=== PATIENT | female | born 1945 | race Caucasian/White ===

== ENCOUNTER 2017-11-08 20:00 | Inpatient (IN) ==
[2017-11-08] MEDS ORDERED: Naloxone Inj 2 MG/2 ML Vial ONE (20:15)
[2017-11-08] MEDS ORDERED: Etomidate Inj 40 MG/20 ML Vial IV.PUSH ONE ×2 (20:15→20:33)
[2017-11-08] MEDS ORDERED: Succinylcholine Inj 100 MG/5 ML Syringe IV.PUSH ONE (20:33)
[2017-11-08] MEDS ORDERED: fentaNYL 10 mcg/mL Premix Drip 2,500 MCG/250 ML BAG IV.SIG PRN (20:40)
--- NOTE | 2017-11-08 20:48 | ED ---
HPI General Chief Complaint: Overdose Stated Complaint: Evac/Poss Od/Psych eval Time Seen by Provider: 11/08/17 20:08 Source: EMS and police Mode of arrival: EMS Limitations: altered mental status History of Present Illness HPI narrative: Patient is a 72-year-old female, past medical history significant for bipolar depression, hypothyroidism who presents with complaint of altered mental status. Per report she was found down at her house in the kitchen with a bottle of Xanax. The bottle was filled in August of this year with 90 0.5 mg xanax tablets. There are 20 tablets in the bottle on arrival here. No other pills were found around her. She arrived here under [place] act. EMS on arrival gave her 2 mg Narcan IM, 2 mg Narcan IV without improvement. Blood sugar was in the 100s. She has not had any change in status. Patient is unable to provide history. MD complaint: altered mental status Onset (ago): unknown Severity: severe Consistency of symptoms: constant Context: other (found with Xanax bottle) Treatments prior to arrival: other (2 mg narcan IM and 2 mg narcan IV) Related Data Home Medications Medication Instructions Recorded Confirmed Unable to Obtain Home Meds 11/08/17 11/08/17 Allergies Allergy/AdvReac Type Severity Reaction Status Date / Time lamotrigine Allergy Unknown Rash Unverified 12/04/16 14:42 Review of Systems ROS Unobtainable due to endotracheal tube and unobtainable due to mental status [facility] History Medical History History of left heart catheterization (LHC) (Acute) Abdominal lipoma (Acute) SVT (supraventricular tachycardia) (Acute) Hypothyroid (Acute) HLD (hyperlipidemia) (Acute) CAD (coronary artery disease) (Acute) Bipolar 1 disorder, depressed (Acute) Surgical History Surgical History History of skin graft (Acute) Family History Family History Other Adopted Social History Social History Substance History: Unable to Obtain Smoking Status: Smoker, status unknown Tobacco Type: Cigarettes Years Smoked: 57 How Often Do You Have a Drink Containing Alcohol: Unable to Obtain Hx Recent Travel: No (unable to obtain) Exam Narrative Exam Narrative: GENERAL: Elderly altered female, sonorous respirations, pooling secretions present SKIN: Focused skin assessment warm/dry. HEAD: Atraumatic. Normocephalic. EYES: Pupils equal, round and pinpoint. No scleral icterus. No injection or drainage. ENT: No nasal bleeding or discharge. Mucous membranes pink and moist. NECK: Trachea midline. No JVD. CARDIOVASCULAR: Bradycardic but regular. No murmur appreciated. Intact peripheral pulses. RESPIRATORY: No accessory muscle use. Breath sounds equal bilaterally. Sonorous respirations present. GASTROINTESTINAL: Abdomen soft, non-tender, nondistended. Hepatic and splenic margins not palpable. MUSCULOSKELETAL: No obvious deformities. No clubbing. No cyanosis. No edema. NEUROLOGICAL: Best GCS of 6 (E:1, V:1, M:4), at which time she was seen moving her RUE and LLE. PSYCHIATRIC: Under [place] Act. Unable to analyze. Course Hospital Course: Patient is a 72-year-old female who presented as a likely Xanax overdose, with a [place] act stating she is recently had suicidal thoughts. GCS less than 8 on arrival. She was given 2 mg of Narcan to which she did not respond. She was then emergently intubated for airway protection. Temperature on arrival was 95 F at which time a bear hugger was applied. Initial Documented Vital Signs Temperature 95.5 F L 11/08/17 20:00 Pulse Rate 57 L 11/08/17 20:00 Respiratory Rate 14 11/08/17 20:00 Blood Pressure 144/82 H 11/08/17 20:00 Pulse Oximetry 95 11/08/17 20:00 Last Documented Vital Signs Temperature 95.5 F L 11/08/17 20:00 Pulse Rate 57 L 11/08/17 20:00 Respiratory Rate 16 11/08/17 22:20 Blood Pressure 144/82 H 11/08/17 20:00 Pulse Oximetry 95 11/08/17 20:00 Procedures Intubation Time Out Performed: Yes Sedative: etomidate Mg Given: 20 Paralytic: succinylcholine Mg Given: 100 Laryngoscope: Noah ET Tube Size: 7.5 ET Tube Uncuffed: Yes Tube Secured Depth (cm): 23 Tube Secured Location: lips Tube Placement Confirmation: visualized tube passing through cords, equal breath sounds bilaterally and no breath sounds over epigastrium Patient Tolerated Procedure: well Intubation Complications: none Critical Care Time Critical Care Time: Yes Total Critical Care Time: 35 Attestation: Aggregate critical care time was 35 minutes. Time to perform other separately billable procedures was not included in the critical care time. My time did not include minutes spent treating any other patients simultaneously or on activities that did not directly contribute to the patient's treatment. The services I provided to this patient were to treat and/or prevent clinically significant deterioration that could result in: , disability. I provided critical care services requiring my management, as noted below: Chart data review, documentation time, medication orders and management, vital sign assessments/reviewing monitor data, ordering and reviewing lab tests, ordering and interpreting/reviewing x-rays and diagnostic studies, care of the patient and discussion of the patient with the admitting physicians. Medical Decision Making MDM Narrative Medical decision making narrative: Patient is a 72 yof PMHx sig for bipolar depression with prev SI, hypothyroidism who presents with altered mental status likely secondary to xanax overdose. GCS < 8 on arrival, which did not improve with narcan. She was then emergently intubated for airway protection. CXR showed ET tube above the yocasta and CT head was without intracranial hemorrhage. EKG without acute ischemic changes. I spoke to poison control whom recommended testing for co-ingestants (prev ordered) and supportive management. Labs unremarkable and without leukocytosis. She has been admitted to the medical ICU by Dr Romero, whom will further evaluate and manage her care. Differential Diagnosis Differential Diagnosis: Differential diagnosis includes, but is not limited to overdose, myxedema coma, intracranial hemorrhage, sepsis, ACS, PE, UTI and Pneumonia. Medical Records Medical records reviewed: Yes I reviewed the patient's medical records. Review of the medical records reveals hypothyroidism, thus TSH was added on. Lab Data Lab results reviewed: Yes I reviewed the patient's lab results. Result diagrams: 11/08/17 20:50 11/08/17 20:50 Lab Results 11/08/17 11/08/17 11/08/17 Range/Units 20:30 20:30 20:30 WBC (4.0-11.0) th/mm3 RBC (4.00-5.30) mil/mm3 Hgb (11.6-15.3) gm/dL Hct (35.0-46.0) % MCV (80.0-100.0) fL MCH (27.0-34.0) pg MCHC (32.0-36.0) % RDW (11.6-17.2) % Plt Count (150-450) th/mm3 MPV (7.0-11.0) fL Neut % (Auto) (16.0-70.0) % Lymph % (Auto) (9.0-44.0) % Jones % (Auto) (0.0-8.0) % Eos % (Auto) (0.0-4.0) % Baso % (Auto) (0.0-2.0) % Neut # (Auto) (1.8-7.7) th/mm3 Lymph # (Auto) (1.0-4.8) th/mm3 Jones # (Auto) (0.0-0.9) th/mm3 Eos # (Auto) (0.0-0.4) th/mm3 Baso # (Auto) (0.0-0.2) th/mm3 WBC Differential Differential Comment Puncture Site Patient Temperature O2 Saturation (90-100) % ABG pH (7.380-7.420) ABG pCO2 (38-42) mmHg ABG pO2 (61-120) mmHg ABG HCO3 (22-26) mmol/L ABG O2 Content (12.0-20.0) Vol % ABG Base Excess (-2-2) mmol/L ABG Methemoglobin (0-2) % Hair Test Hemoglobin (12.0-16.0) G/DL Carboxyhemoglobin (0-4) % O2 Delivery Device Vent Setting Inspired O2 % Critical Value Sodium (136-145) meq/L Potassium (3.5-5.1) meq/L Chloride (98-107) meq/L Carbon Dioxide (21.0-32.0) meq/L Anion Gap (5-15) meq/L BUN (7-18) mg/dL Creatinine (0.50-1.00) mg/dL Estimated GFR (>89) mL/min Random Glucose (74-106) mg/dL Calcium (8.5-10.1) mg/dL Total Bilirubin (0.2-1.0) mg/dL AST (15-37) U/L ALT (10-53) U/L Alkaline Phosphatase (45-117) U/L Ammonia (11-32) mcmol/L Troponin I (0.02-0.05) ng/mL Total Protein (6.4-8.2) g/dL Albumin (3.4-5.0) g/dL Urine Color Straw (Yellw/Straw) Urine Clarity Clear (Clear) Urine pH 7.0 (5.0-8.5) Ur Specific [place] 1.005 (1.002-1.035) Urine Protein Negative (Neg-Trace) mg/dL Urine Glucose (UA) Negative (Negative) mg/dL Urine Ketones Negative (Negative) mg/dL Urine Occult Blood Small H (Negative) Urine Nitrate Negative (Negative) Urine Bilirubin Negative (Negative) Urine Urobilinogen Less than 2 (Less than 2) mg/dL Ur Leukocyte Esterase Negative (Negative) Urine RBC Less than 1 (0-3) /hpf Micro UA Comment Cath-culture not ind Urine Culture Comments Cath-cult not ind Salicylates (2.8-20.0) mg/dL Urine Opiates Screen Cancelled Neg Acetaminophen (10.0-30.0) mcg/mL Ur Barbiturates Screen Cancelled Neg Ur Amphetamine Screen Neg (Neg) Ur Amphetamines Screen Cancelled U Benzodiazepines Scrn Cancelled Pos H [place] (0.5-1.5) meq/L Urine Cocaine Screen Cancelled Neg U Cannabinoids Screen Cancelled Neg Serum Alcohol (0-5) mg/dL 11/08/17 11/08/17 11/08/17 Range/Units 20:50 20:50 20:50 WBC 10.6 (4.0-11.0) th/mm3 RBC 4.76 (4.00-5.30) mil/mm3 Hgb 14.7 (11.6-15.3) gm/dL Hct 45.0 (35.0-46.0) % MCV 94.4 (80.0-100.0) fL MCH 30.8 (27.0-34.0) pg MCHC 32.6 (32.0-36.0) % RDW 13.9 (11.6-17.2) % Plt Count 280 (150-450) th/mm3 MPV 8.9 (7.0-11.0) fL Neut % (Auto) 81.4 H (16.0-70.0) % Lymph % (Auto) 12.0 (9.0-44.0) % Jones % (Auto) 4.6 (0.0-8.0) % Eos % (Auto) 1.1 (0.0-4.0) % Baso % (Auto) 0.9 (0.0-2.0) % Neut # (Auto) 8.7 H (1.8-7.7) th/mm3 Lymph # (Auto) 1.3 (1.0-4.8) th/mm3 Jones # (Auto) 0.5 (0.0-0.9) th/mm3 Eos # (Auto) 0.1 (0.0-0.4) th/mm3 Baso # (Auto) 0.1 (0.0-0.2) th/mm3 WBC Differential . Differential Comment Auto diff final Puncture Site Patient Temperature O2 Saturation (90-100) % ABG pH (7.380-7.420) ABG pCO2 (38-42) mmHg ABG pO2 (61-120) mmHg ABG HCO3 (22-26) mmol/L ABG O2 Content (12.0-20.0) Vol % ABG Base Excess (-2-2) mmol/L ABG Methemoglobin (0-2) % Hair Test Hemoglobin (12.0-16.0) G/DL Carboxyhemoglobin (0-4) % O2 Delivery Device Vent Setting Inspired O2 % Critical Value Sodium 139 (136-145) meq/L Potassium 4.6 (3.5-5.1) meq/L Chloride 106 (98-107) meq/L Carbon Dioxide 23.8 (21.0-32.0) meq/L Anion Gap 9 (5-15) meq/L BUN 13 (7-18) mg/dL Creatinine 0.76 (0.50-1.00) mg/dL Estimated GFR 74 L (>89) mL/min Random Glucose 99 (74-106) mg/dL Calcium 9.1 (8.5-10.1) mg/dL Total Bilirubin 0.6 (0.2-1.0) mg/dL AST 16 (15-37) U/L ALT 19 (10-53) U/L Alkaline Phosphatase 80 (45-117) U/L Ammonia 18 (11-32) mcmol/L Troponin I Less than 0.02 L (0.02-0.05) ng/mL Total Protein 6.8 (6.4-8.2) g/dL Albumin 3.6 (3.4-5.0) g/dL Urine Color (Yellw/Straw) Urine Clarity (Clear) Urine pH (5.0-8.5) Ur Specific [place] (1.002-1.035) Urine Protein (Neg-Trace) mg/dL Urine Glucose (UA) (Negative) mg/dL Urine Ketones (Negative) mg/dL Urine Occult Blood (Negative) Urine Nitrate (Negative) Urine Bilirubin (Negative) Urine Urobilinogen (Less than 2) mg/dL Ur Leukocyte Esterase (Negative) Urine RBC (0-3) /hpf Micro UA Comment Urine Culture Comments Salicylates (2.8-20.0) mg/dL Urine Opiates Screen Acetaminophen (10.0-30.0) mcg/mL Ur Barbiturates Screen Ur Amphetamine Screen (Neg) Ur Amphetamines Screen U Benzodiazepines Scrn [place] (0.5-1.5) meq/L Urine Cocaine Screen U Cannabinoids Screen Serum Alcohol Less than 3 (0-5) mg/dL 11/08/17 11/08/17 11/08/17 Range/Units 20:50 20:50 21:00 WBC (4.0-11.0) th/mm3 RBC (4.00-5.30) mil/mm3 Hgb (11.6-15.3) gm/dL Hct (35.0-46.0) % MCV (80.0-100.0) fL MCH (27.0-34.0) pg MCHC (32.0-36.0) % RDW (11.6-17.2) % Plt Count (150-450) th/mm3 MPV (7.0-11.0) fL Neut % (Auto) (16.0-70.0) % Lymph % (Auto) (9.0-44.0) % Jones % (Auto) (0.0-8.0) % Eos % (Auto) (0.0-4.0) % Baso % (Auto) (0.0-2.0) % Neut # (Auto) (1.8-7.7) th/mm3 Lymph # (Auto) (1.0-4.8) th/mm3 Jones # (Auto) (0.0-0.9) th/mm3 Eos # (Auto) (0.0-0.4) th/mm3 Baso # (Auto) (0.0-0.2) th/mm3 WBC Differential Differential Comment Puncture Site Patient Temperature O2 Saturation (90-100) % ABG pH (7.380-7.420) ABG pCO2 (38-42) mmHg ABG pO2 (61-120) mmHg ABG HCO3 (22-26) mmol/L ABG O2 Content (12.0-20.0) Vol % ABG Base Excess (-2-2) mmol/L ABG Methemoglobin (0-2) % Hair Test Hemoglobin (12.0-16.0) G/DL Carboxyhemoglobin (0-4) % O2 Delivery Device Vent Setting Inspired O2 % Critical Value Sodium (136-145) meq/L Potassium (3.5-5.1) meq/L Chloride (98-107) meq/L Carbon Dioxide (21.0-32.0) meq/L Anion Gap (5-15) meq/L BUN (7-18) mg/dL Creatinine (0.50-1.00) mg/dL Estimated GFR (>89) mL/min Random Glucose (74-106) mg/dL Calcium (8.5-10.1) mg/dL Total Bilirubin (0.2-1.0) mg/dL AST (15-37) U/L ALT (10-53) U/L Alkaline Phosphatase (45-117) U/L Ammonia (11-32) mcmol/L Troponin I (0.02-0.05) ng/mL Total Protein (6.4-8.2) g/dL Albumin (3.4-5.0) g/dL Urine Color (Yellw/Straw) Urine Clarity (Clear) Urine pH (5.0-8.5) Ur Specific [place] (1.002-1.035) Urine Protein (Neg-Trace) mg/dL Urine Glucose (UA) (Negative) mg/dL Urine Ketones (Negative) mg/dL Urine Occult Blood (Negative) Urine Nitrate (Negative) Urine Bilirubin (Negative) Urine Urobilinogen (Less than 2) mg/dL Ur Leukocyte Esterase (Negative) Urine RBC (0-3) /hpf Micro UA Comment Urine Culture Comments Salicylates Less than 1.7 L (2.8-20.0) mg/dL Urine Opiates Screen Acetaminophen Less than 2.0 L (10.0-30.0) mcg/mL Ur Barbiturates Screen Ur Amphetamine Screen (Neg) Ur Amphetamines Screen U Benzodiazepines Scrn [place] 0.8 (0.5-1.5) meq/L Urine Cocaine Screen U Cannabinoids Screen Serum Alcohol (0-5) mg/dL 11/08/17 Range/Units 21:07 WBC (4.0-11.0) th/mm3 RBC (4.00-5.30) mil/mm3 Hgb (11.6-15.3) gm/dL Hct (35.0-46.0) % MCV (80.0-100.0) fL MCH (27.0-34.0) pg MCHC (32.0-36.0) % RDW (11.6-17.2) % Plt Count (150-450) th/mm3 MPV (7.0-11.0) fL Neut % (Auto) (16.0-70.0) % Lymph % (Auto) (9.0-44.0) % Jones % (Auto) (0.0-8.0) % Eos % (Auto) (0.0-4.0) % Baso % (Auto) (0.0-2.0) % Neut # (Auto) (1.8-7.7) th/mm3 Lymph # (Auto) (1.0-4.8) th/mm3 Jones # (Auto) (0.0-0.9) th/mm3 Eos # (Auto) (0.0-0.4) th/mm3 Baso # (Auto) (0.0-0.2) th/mm3 WBC Differential Differential Comment Puncture Site Right femoral Patient Temperature 98.6 O2 Saturation 97 (90-100) % ABG pH 7.33 L (7.380-7.420) ABG pCO2 39 (38-42) mmHg ABG pO2 575 H (61-120) mmHg ABG HCO3 20 L (22-26) mmol/L ABG O2 Content 19.0 (12.0-20.0) Vol % ABG Base Excess -4.6 L (-2-2) mmol/L ABG Methemoglobin 0.6 (0-2) % Hair Test Present Hemoglobin 12.8 (12.0-16.0) G/DL Carboxyhemoglobin 2.2 (0-4) % O2 Delivery Device Ventilator Vent Setting Vac/16/500/+5 Inspired O2 100 % Critical Value No Sodium (136-145) meq/L Potassium (3.5-5.1) meq/L Chloride (98-107) meq/L Carbon Dioxide (21.0-32.0) meq/L Anion Gap (5-15) meq/L BUN (7-18) mg/dL Creatinine (0.50-1.00) mg/dL Estimated GFR (>89) mL/min Random Glucose (74-106) mg/dL Calcium (8.5-10.1) mg/dL Total Bilirubin (0.2-1.0) mg/dL AST (15-37) U/L ALT (10-53) U/L Alkaline Phosphatase (45-117) U/L Ammonia (11-32) mcmol/L Troponin I (0.02-0.05) ng/mL Total Protein (6.4-8.2) g/dL Albumin (3.4-5.0) g/dL Urine Color (Yellw/Straw) Urine Clarity (Clear) Urine pH (5.0-8.5) Ur Specific [place] (1.002-1.035) Urine Protein (Neg-Trace) mg/dL Urine Glucose (UA) (Negative) mg/dL Urine Ketones (Negative) mg/dL Urine Occult Blood (Negative) Urine Nitrate (Negative) Urine Bilirubin (Negative) Urine Urobilinogen (Less than 2) mg/dL Ur Leukocyte Esterase (Negative) Urine RBC (0-3) /hpf Micro UA Comment Urine Culture Comments Salicylates (2.8-20.0) mg/dL Urine Opiates Screen Acetaminophen (10.0-30.0) mcg/mL Ur Barbiturates Screen Ur Amphetamine Screen (Neg) Ur Amphetamines Screen U Benzodiazepines Scrn [place] (0.5-1.5) meq/L Urine Cocaine Screen U Cannabinoids Screen Serum Alcohol (0-5) mg/dL Imaging Data Attestation: I personally reviewed and interpreted this imaging study as follows : My impression: ET tube above the yocasta without acute consolidation. No large hemorrhage nor mass-effect on CT of the head. Radiologist's impression: Chest X-Ray 11/08/17 20:32 CONCLUSION: 1. ET tube tip 1 cm above the yocasta. 2. The lungs are clear. Head CT 11/08/17 20:33 CONCLUSION: 1. No acute findings in the brain. . ECG Data EKG Prior to Arrival: No Attestation: I personally reviewed and interpreted this ECG as follows: (Sinus rhythm at a rate of 60 bpm. T wave inversions in the septal and lateral leads. Anterior fascicular block present. No ST segment elevations.) Discharge Plan Discharge Disposition Patient Disposition: 30 Still Patient Discharge Condition Condition: Serious Discharge Details Diagnosis: Acute alteration in mental status Physicians Team ED Provider: Maite Redman Primary Care Provider: Primary Care Elvira Tellez Attending Provider: Merced Romero Status ED Status: Admitted Patient
--- NOTE | 2017-11-08 21:02 | P.HPCC ---
History of Present Illness Service: Critical care medicine Chief Complaint: Altered mental status History of Present Illness: 72-year-old female with past medical history of bipolar depression, hyperlipidemia, mild coronary artery disease on left heart cath 2011, hypothyroidism, ongoing tobacco abuse who presented to [facility] emergency department with altered mental status after she was found down in her home near nearly empty Xanax bottle. Her neighbor reported that she frequently speaks of suicidal intent. GCS was 4 upon arrival. She was intubated for airway protection by Dr. Redman in the emergency department. She prescription bottle with Xanax 0.5 mg p.o. 3 times daily and a bottle of 90 was filled on 08/23/17. 21 pills are left in the bottle. Prior medication list also include lithium. No prior prescription for TCAs noted. Most recent med list in EMR: Sertraline 25 mg (Sertraline HCl) 25 Mg Tab 25 Tab PO DAILY Xanax 0.25 Mg (Alprazolam) Alprazolam 0.25 mg Tab 1 Tab PO Q6H PRN Levothyroxine 50 mcg (Levothyroxine Sodium) 50 Mcg Tab 50 Mcg PO DAILY Lyrica (Pregabalin) 50 Mg Cap 50 Mg PO BID Lovastatin 10 Mg Tab 20 Mg PO HS [place] Carbonate 300 Mg Tab 300 Mg PO BID Inpatient Certification: I certify that the inpatient services were ordered in accordance with Medicare regulations governing the order. This includes certification that hospital inpatient services are reasonable and necessary and in the case of services not specified as inpatient-only under 42 CFR 419.22(n), that they are appropriately provided as inpatient services in accordance to with the 2-midnight benchmark under 43 CFR 412.3(e) Review of Systems unobtainable due to mental condition PMF - History History Provided By: Medical Record - Medical History Medical History: Medical History (Last Updated 11/08/17 @ 21:14 by Merced Romero MD) History of left heart catheterization (LHC) (Acute) Abdominal lipoma (Acute) SVT (supraventricular tachycardia) (Acute) Hypothyroid (Acute) HLD (hyperlipidemia) (Acute) CAD (coronary artery disease) (Acute) Bipolar 1 disorder, depressed (Acute) - Surgical History Surgical History: Surgical History (Last Updated 11/08/17 @ 21:13 by Merced Romero MD) History of skin graft (Acute) - Family History Family History: Family History (Last Updated 11/08/17 @ 21:11 by Merced Romero MD) Other Adopted - Tobacco History Smoking Status: Smoker, status unknown Tobacco Type: Cigarettes Years Smoked: 57 - Alcohol History How Often Do You Have a Drink Containing Alcohol: Unable to Obtain - Substance Use History Substance History: Unable to Obtain - Travel History History of Recent Travel: No (unable to obtain) Medications and Allergies Active Medications: Active Medications Fentanyl (Fentanyl 10 Mcg/Ml Premix Drip) 2,500 mcg in 250 mls @ 2.5 mls/hr IV.SIG TITRATE PRN; Protocol PRN Reason: Per Protocol Sodium Chloride (Ns Flush) 2 ml IV.FLUSH PRN PRN PRN Reason: FLUSH AFTER USING IV ACCESS Allergies Allergy/AdvReac Type Severity Reaction Status Date / Time lamotrigine Allergy Unknown Rash Verified 11/16/17 02:12 Results - Labs CBC & Chem 7: 11/15/17 05:11 11/15/17 05:11 Exam Narrative: GENERAL: Well-nourished, well-developed elderly female patient who is orotracheally intubated. She is currently on sedation with fentanyl 25 mcg/h SKIN: Warm and dry. Linear scar, probably surgical scar, overlying left anterior shoulder. Scar over left neal from prior skin graft. HEAD: Atraumatic. Normocephalic. EYES: Pupils equal and round, 2mm and reactive bilaterally. No scleral icterus. No injection or drainage, mild tearing. ENT: No nasal bleeding or discharge. Mucous membranes pink and moist. NECK: Trachea midline. No JVD. No meningismus. CARDIOVASCULAR: Regular, rate high 50s, distant heart sounds. No murmurs rubs or gallops. RESPIRATORY: Orotracheally intubated, no significant secretions with suctioning. CTAB. GASTROINTESTINAL: Abdomen very soft, non-tender, nondistended. Bowel sounds present. Hepatic and splenic margins not palpable. : Gaspar in place with 1 L of pale yellow urine in the bag. MUSCULOSKELETAL: Extremities without clubbing, cyanosis, or edema. NEUROLOGICAL: No eye opening. Pupils reactive as per above., + swallowing efforts, + gag. Localizes bilateral upper extremities to deep central noxious stimuli. Withdraws with bilateral lower extremities. No response to Babinski. No clonus. Caprini VTE Risk Assessment Caprini VTE Risk Assessment: Moderate/High Risk (score >= 2) Caprini Risk Assessment Model: Point Value = 1 Point Value = 2 Point Value = 3 Point Value = 5 Age 41-60 Minor surgery BMI > 25 kg/m2 Swollen legs Varicose veins or History of unexplained or recurrent spontaneous Oral contraceptives or hormone replacement Sepsis (< 1 month) Serious lung disease, including pneumonia (< 1 month) Abnormal pulmonary function Acute myocardial infarction Congestive heart failure (< 1 month) History of inflammatory bowel disease Medical patient at bed rest Age 61-74 Arthroscopic surgery Major open surgery (> 45 min) Laparoscopic surgery (> 45 min) Malignancy Confined to bed (> 72 hours) Immobilizing plaster cast Central venous access Age >= 75 History of VTE Family history of VTE Factor V Leiden Prothrombin [id number] Lupus anticoagulant Anticardiolipin antibodies Elevated serum homocysteine Heparin-induced thrombocytopenia Other congenital or acquired thrombophilia Stroke (< 1 month) Elective arthroplasty Hip, pelvis, or leg fracture Acute spinal cord injury (< 1 month) Prophylaxis Regimen: Total Risk Factor Score Risk Level Prophylaxis Regimen 0-1 Low Early ambulation 2 Moderate Order ONE of the following: *Sequential Compression Device (SCD) *Heparin 5000 units SQ BID 3-4 Higher Order ONE of the following medications: *Heparin 5000 units SQ TID *Enoxaparin/Lovenox 40 mg SQ daily (WT < 150 kg, CrCl > 30 mL/min) *Enoxaparin/Lovenox 30 mg SQ daily (WT < 150 kg, CrCl > 10-29 mL/min) *Enoxaparin/Lovenox 30 mg SQ BID (WT < 150 kg, CrCl > 30 mL/min) AND/OR *Sequential Compression Device (SCD) 5 or more Highest Order ONE of the following medications: *Heparin 5000 units SQ TID (Preferred with Epidurals) *Enoxaparin/Lovenox 40 mg SQ daily (WT < 150 kg, CrCl > 30 mL/min) *Enoxaparin/Lovenox 30 mg SQ daily (WT < 150 kg, CrCl > 10-29 mL/min) *Enoxaparin/Lovenox 30 mg SQ BID (WT < 150 kg, CrCl > 30 mL/min) AND *Sequential Compression Device (SCD) Assessment and Plan - Assessment and Plan Plan: NEURO: Acute encephalopathy Suspected benzodiazepine overdose Suicidal tendencies Redman act Propofol for sedation which will also provide seizure prophylaxis. Sedation vacation daily. Urine drug screen positive for benzodiazepines. Levels of lithium, Tylenol, salicylate are nontoxic. EtOH negative. Ammonia level normal CT brain negative Hold Xanax, lithium, sertraline, Lyrica for now Psych consult when extubated and able to interact. RESP: Acute respiratory failure Intubated for airway protection. Adjusted vent to PRVC. Spontaneous breathing trial with plan to extubate when awake. CV: Monitor hemodynamics EKG sinus rhythm. QTC 443. QRS 109 ms and nothing on records to suggest prior TCA so urine alkalization unnecessary. 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 FEN/RENAL: Urinary retention Gaspar in place. Monitor intake and output. Monitor electrolytes. Replace electrolytes as indicated. 0.9 NaCl with 20 mg KCl per liter at 100 mill liters per hour. ID: Monitor for signs and symptoms of infection. HEME: Monitor CBC ENDO: Hypothyroidism Monitor bedside glucose [id number]. TSH is normal. Continue Synthroid 50 mcg daily. PROPH: SCDs for DVT prophylaxis. Protonix 40 mg IV for stress ulcer prophylaxis ACCESS: Peripheral IV providing adequate access at this time. No family contact information noted in old chart, contact info for friend only . Discussed with Dr. Redman Full code Level 3 H&P
[2017-11-08 21:14] LABS: ABG Base Excess -4.6 mmol/L (-2-2); ABG PCO2 39 mmHg (38-42); ABG PO2 575 mmHg (61-120)
[2017-11-08] MEDS ORDERED: fentaNYL 10 mcg/mL Premix Drip 2,500 MCG/250 ML BAG ONE (21:20)
[2017-11-08 21:35] LABS: Baso # (Auto) 0.1 th/mm3 (0.0-0.2); Baso % (Auto) 0.9 % (0.0-2.0); Eos # (Auto) 0.1 th/mm3 (0.0-0.4); Eos % (Auto) 1.1 % (0.0-4.0); Hemoglobin 14.7 gm/dL (11.6-15.3); Lymph # (Auto) 1.3 th/mm3 (1.0-4.8); Mean Corpuscular HGB Conc 32.6 % (32.0-36.0); Mean Corpuscular Hemoglobin 30.8 pg (27.0-34.0); Mean Corpuscular Volume 94.4 fL (80.0-100.0); Mean Platelet Volume 8.9 fL (7.0-11.0); Mono # (Auto) 0.5 th/mm3 (0.0-0.9); Mono % (Auto) 4.6 % (0.0-8.0); Neut # (Auto) 8.7 th/mm3 (1.8-7.7); Neut % (Auto) 81.4 % (16.0-70.0); Platelet Count 280 th/mm3 (150-450); Red Blood Count 4.76 mil/mm3 (4.00-5.30); Red Cell Distribution Width 13.9 % (11.6-17.2); White Blood Count 10.6 th/mm3 (4.0-11.0)
--- NOTE | 2017-11-08 21:38 | XR ---
EXAM DATE: 11/08/2017 9:10 PM EDT AGE/SEX: 72 years / Female INDICATIONS: Status post intubation. CLINICAL DATA: This is the patient's initial encounter. Patient reports that signs and symptoms have been present for 1 day and indicates a pain score of Nonresponsive. MEDICAL/SURGICAL HISTORY: Non-responsive. Non-responsive. COMPARISON: POI, XR CHEST PA AND LAT, 10/04/2017. . FINDINGS: ET tube tip is 1 cm above the yocasta and needs to be withdrawn 1.5 cm. The lungs are symmetrically ae rated. Both hemidiaphragms well delineated. The heart is normal in size. CONCLUSION: 1. ET tube tip 1 cm above the yocasta. 2. The lungs are clear. Electronically signed by: Krunal Moore MD 11/08/2017 9:37 PM EDT
--- NOTE | 2017-11-08 21:44 | CT ---
EXAM DATE: 11/08/2017 9:30 PM EDT AGE/SEX: 72 years / Female INDICATIONS: Patient found unresponsive, possible overdose. CLINICAL DATA: This is the patient's initial encounter. Patient reports that signs and symptoms have been present for 1 day and indicates a pain score of 0/10. MEDICAL/SURGICAL HISTORY: Cardiovascular disease. Hypothyroidism. Abdominal lipoma, Supraventricul ar Tachycardia. . Heart cath, Skin graft. RADIATION DOSE: 56.35 CTDI (mGy) COMPARISON: [facility], CT BRAIN W/O CONTRAST, 01/15/2015. . TECHNIQUE: CT of the head without contrast. Using automated exposure control and adjustment of the mA and/or kV according to patient size, radiation dose was kept as low as reasonably achievable to ob tain optimal diagnostic quality images. DICOM format image data is available electronically for revi ew and comparison. FINDINGS: Cerebrum: The ventricles are normal for age. No evidence of midline shift, mass lesion, hemorrhage or acute infarction. No extraaxial fluid collections are seen. Posterior Fossa: The cerebellum and brainstem are intact. The 4th ventricle is midline. The cerebe llopontine angle is unremarkable. Extracranial: The visualized portion of the orbits is intact. Skull: The calvaria is intact. No evidence of skull fracture. CONCLUSION: 1. No acute findings in the brain. . Electronically signed by: Krunal Moore MD 11/08/2017 9:43 PM EDT
[2017-11-08 21:48] LABS: Bilirubin,Urine Negative (Negative); Clarity,Urine Clear (Clear); Color,Urine Straw (Yellw/Straw); Glucose,Urine (UA) Negative (Negative); Leukocyte Esterase,Urine Negative (Negative); Nitrite,Urine Negative (Negative); Specific Gravity,Urine 1.005 (1.002-1.035)
[2017-11-08 21:54] LABS: Amphetamine Urine With Conf Neg (Neg)
[2017-11-08 22:00] LABS: Albumin 3.6 g/dL (3.4-5.0); Anion Gap 9 meq/L (5-15); Aspartate Aminotransferase 16 U/L (15-37); Blood Urea Nitrogen 13 mg/dL (7-18); Calcium 9.1 mg/dL (8.5-10.1); Carbon Dioxide 23.8 meq/L (21.0-32.0); Chloride 106 meq/L (98-107); Glomerular Filtration Rate 74 mL/min (>89); Glucose,Random 99 mg/dL (74-106); Potassium 4.6 meq/L (3.5-5.1); Sodium 139 meq/L (136-145)
[2017-11-08] MEDS ORDERED: Propofol 1000 mg/100 ml Inj 1,000 MG/100 ML BOTTLE IV.CONT PRN (22:01)
[2017-11-08 22:02] LABS: Alanine Aminotransferase 19 U/L (10-53)
[2017-11-08 22:05] LABS: Alkaline Phosphatase 80 U/L (45-117); Total Protein 6.8 g/dL (6.4-8.2)
[2017-11-08] MEDS ORDERED: Bisacodyl 10 MG Supp RECTAL PRN (22:12)
[2017-11-08 22:29] LABS: Benzodiazepine Urine With Conf Pos (Neg)
[2017-11-08] MEDS: Enoxaparin Inj 40 MG/0.4 ML Syringe SQ SCH (23:22)
[2017-11-09] MEDS: Oral Hygiene Kit OROPHARYNG SCH ×5 (00:20→23:55)
[2017-11-09] MEDS ORDERED: Chlorhexidine Gluconate 2% 1 Pack (2 Cloths) TOPICAL PRN (04:00)
[2017-11-09 05:16] LABS: Baso # (Auto) 0.1 th/mm3 (0.0-0.2); Baso % (Auto) 0.7 % (0.0-2.0); Eos # (Auto) 0.1 th/mm3 (0.0-0.4); Eos % (Auto) 0.5 % (0.0-4.0); Hemoglobin 13.3 gm/dL (11.6-15.3); Lymph % (Auto) 8.8 % (9.0-44.0); Mean Corpuscular HGB Conc 32.5 % (32.0-36.0); Mean Corpuscular Hemoglobin 30.7 pg (27.0-34.0); Mean Corpuscular Volume 94.6 fL (80.0-100.0); Mean Platelet Volume 8.7 fL (7.0-11.0); Mono # (Auto) 0.9 th/mm3 (0.0-0.9); Mono % (Auto) 7.4 % (0.0-8.0); Neut # (Auto) 9.8 th/mm3 (1.8-7.7); Neut % (Auto) 82.6 % (16.0-70.0); Platelet Count 235 th/mm3 (150-450); Red Blood Count 4.33 mil/mm3 (4.00-5.30); Red Cell Distribution Width 13.8 % (11.6-17.2); White Blood Count 11.9 th/mm3 (4.0-11.0)
[2017-11-09] MEDS: Chlorhexidine Gluconate 2% 1 Pack (2 Cloths) TOPICAL SCH (05:20)
[2017-11-09 05:36] LABS: Alanine Aminotransferase 16 U/L (10-53); Alkaline Phosphatase 68 U/L (45-117); Anion Gap 11 meq/L (5-15); Aspartate Aminotransferase 12 U/L (15-37); Blood Urea Nitrogen 11 mg/dL (7-18); Calcium 8.5 mg/dL (8.5-10.1); Carbon Dioxide 19.6 meq/L (21.0-32.0); Chloride 111 meq/L (98-107); Glomerular Filtration Rate Greater Than 89 mL/min (>89); Glucose,Random 91 mg/dL (74-106); Phosphorus 2.9 mg/dL (2.5-4.9); Potassium 4.1 meq/L (3.5-5.1); Sodium 142 meq/L (136-145); Total Protein 5.7 g/dL (6.4-8.2)
--- NOTE | 2017-11-09 06:51 | P.PNCC ---
Subjective Subjective Remarks/Hospital Course: 72-year-old female with past medical history of bipolar depression, hyperlipidemia, mild coronary artery disease on left heart cath 2011, hypothyroidism, ongoing tobacco abuse who presented to [facility] emergency department with altered mental status after she was found down in her home near nearly empty Xanax bottle. Her neighbor reported that she frequently speaks of suicidal intent. GCS was 4 upon arrival. She was intubated for airway protection by Dr. Redman in the emergency department. Prior medication list also include lithium. SUBJECTIVE: 11/09: Afebrile. Currently on no sedation but minimally responsive. Positive gag and cough. Urine toxicology screen positive for benzodiazepines only. [place] level 0.8. EKG shows sinus bradycardia with no QTC abnormalities. Objective Vital Signs / I&O: Vital Signs 11/08/17 20:00 11/08/17 20:10 11/08/17 20:25 Temperature 95.5 F L Pulse Rate 57 L 70 57 L Respiratory Rate 14 14 14 Blood Pressure 144/82 H 166/76 H 116/56 L Pulse Oximetry 95 96 100 11/08/17 20:30 11/08/17 20:55 11/08/17 21:00 Temperature Pulse Rate 54 L 69 53 L Respiratory Rate 16 16 16 Blood Pressure 115/56 L 136/69 136/69 Pulse Oximetry 100 100 100 11/08/17 21:45 11/08/17 22:02 11/08/17 22:15 Temperature Pulse Rate 55 L 54 L 56 L Respiratory Rate 16 16 16 Blood Pressure 142/66 H 148/67 H 146/61 H Pulse Oximetry 100 100 100 11/08/17 22:20 11/08/17 22:45 11/08/17 23:33 Temperature Pulse Rate 57 L 95 H Respiratory Rate 16 16 18 Blood Pressure 147/65 H Pulse Oximetry 100 11/08/17 23:35 11/09/17 00:00 11/09/17 00:03 Temperature Pulse Rate 66 60 60 Respiratory Rate 35 H 36 H 24 Blood Pressure 132/83 115/64 Pulse Oximetry 100 100 100 11/09/17 00:13 11/09/17 01:00 11/09/17 01:01 Temperature Pulse Rate 54 L 54 L Respiratory Rate 16 16 16 Blood Pressure 137/63 Pulse Oximetry 100 100 11/09/17 02:00 11/09/17 02:29 11/09/17 03:00 Temperature Pulse Rate 57 L 54 L Respiratory Rate 16 16 Blood Pressure 139/63 122/57 L Pulse Oximetry 100 100 100 11/09/17 04:00 11/09/17 04:17 11/09/17 05:00 Temperature 100.4 F H Pulse Rate 55 L 60 Respiratory Rate 16 16 16 Blood Pressure 141/65 H 131/60 Pulse Oximetry 100 100 98 Intake & Output 11/08/17 11/08/17 11/09/17 06:59 18:59 06:59 Output Total 1000 / 1000 Balance -1000 / -1000 Weight 54 kg Output: Urine 1000 / 1000 Other: Weight On Admission 54 kg Result Diagrams: 11/09/17 04:27 11/09/17 04:27 Objective Remarks: GENERAL: 72-year-old female currently resting in bed orotracheally intubated SKIN: Warm and dry. We will will schedule hard over her left shoulder and left neal. HEAD: Atraumatic. Normocephalic. EYES: Pupils equal and round about 2 mm bilaterally and reactive. No scleral icterus. No injection or drainage. ENT: No nasal bleeding or discharge. Mucous membranes pink and moist. NECK: Trachea midline. No JVD. CARDIOVASCULAR: Bradycardia, RR. S1, S2 no S4. No murmur RESPIRATORY: No accessory muscle use. Clear to auscultation. Breath sounds equal bilaterally. GASTROINTESTINAL: Abdomen soft, non-tender, nondistended. Hepatic and splenic margins not palpable. MUSCULOSKELETAL: Extremities without without significant peripheral edema. Inverted toes bilaterally.. NEUROLOGICAL: Minimally responsive on the ventilator. Positive gag, cough and corneal reflex. Withdraws to pain bilateral upper and lower extremities and reaches for endotracheal tube. Negative Babinski. Assessment and Plan - Assessment and Plan Plan: NEURO/PSYCH: Acute encephalopathy Suspected benzodiazepine overdose Suicidal ideation Diagnoses of bipolar disease I Redman act Patient is currently on no sedation. Written for propofol/fentanyl drips for sedation/analgesia while intubated Goal of RA SS -2 while intubated Daily sedation vacation CT brain 11/08 revealed no acute intracranial findings Currently holding lithium carbonate 3 mg by mouth twice daily/home medication. Level was 0.8. Resume when clinically indicated. Previously on alprazolam 0.25 mg every 6 hours as needed. This is been held. Previously on sertraline 25 mg p.o. daily. This is been held. Previously on pregabalin 50 mg p.o. twice daily. This is been held. Holding aspirin 81 mg daily. Resume clinically indicated Psychiatric evaluation for Redman act once extubated and able to interact RESP: Acute respiratory failure secondary to likely overdose possibly intentional Ongoing tobaccoism [facility] 450/04/26/39 Ventilator bundle Albuterol/ipratropium aerosols every 4 hours with albuterol aerosols every 2 hours as needed for dyspnea Spontaneous breathing trials when clinically indicated Tobacco cessation self evaluation pamphlet will be provided when clinically indicated Chest x-ray revealed no acute cardia pulmonary findings CV: Coronary artery disease Hyperlipidemia History of SVT Currently on 0.9% NaCl with 20 mEq of potassium chloride at 100 cc an hour Left heart catheterization 2011 revealed LAD 50%. RCA PL 40%. EF 60%. Lexiscan 2015 within normal limits. Currently holding lovastatin 10 mg daily/home medication. Resume when clinically indicated. QTC 443. Normal QRS. GI: Hypoalbuminemia Insert OG tube in place to low intermittent wall suction. Pantoprazole for GI prophylax Docusate sodium/senna 1 tablet twice daily for bowel regimen FEN/RENAL: Urinary retention Gaspar in place. Monitor intake and output. Monitor electrolytes. Replace electrolytes as indicated. ID: Monitor for signs and symptoms of infection. HEME: Leukocytosis Monitor CBC. Monitor trends. No indication for transfusion of blood products at this time ENDO: Hypothyroidism Continue levothyroxine 50 ramon grams daily. TSH was 1.2 Monitor bedside glucose [id number] with aspart sliding scale insulin coverage/low regimen. PROPH: SCDs/enoxaparin 40 mg subcu daily for DVT prophylaxis. Pantoprazole 40 mg IV for stress ulcer prophylaxis ACCESS: Peripheral IV providing adequate access at this time. No family contact information noted in old chart, contact info for friend only . Level 2 followup
[2017-11-09] MEDS ORDERED: Potassium Chlor 40 mEq Premix 40 MEQ/100 ML PIGGYBACK IV.SIG PRN ×2 (07:08)
[2017-11-09] MEDS ORDERED: Potassium Phosphate 500 MG Soluble Tablet PO PRN ×2 (07:08)
[2017-11-09] MEDS ORDERED: Magnesium Sulfate Inj 2 GM in Sodium Chlor 0.9% Inj 96 ML IV.SIG PRN (07:08)
[2017-11-09] MEDS ORDERED: Magnesium Oxide 400 MG Tablet PO PRN (07:08)
[2017-11-09] MEDS ORDERED: Potassium Chloride 25 MEQ Effervescent Tablet PO PRN (07:08)
[2017-11-09] MEDS ORDERED: Magnesium Sulfate Inj 4 GM in Sodium Chlor 0.9% Inj 92 ML IV.SIG PRN (07:08)
[2017-11-09] MEDS ORDERED: Potassium Chlor 20 mEq Premix 20 MEQ/100 ML PIGGYBACK IV.SIG PRN ×2 (07:08)
[2017-11-09] MEDS ORDERED: Sodium Phosphate Inj 30 MMOL in Sodium Chlor 0.9% Inj 250 ML IV.SIG PRN (07:08)
[2017-11-09] MEDS ORDERED: Potassium Phosphate Inj 30 MMOL in Sodium Chlor 0.9% Inj 250 ML IV.SIG PRN (07:08)
[2017-11-09] MEDS ORDERED: Dextrose 50% in Water 50 ML Vial IV.PUSH PRN (07:26)
[2017-11-09] MEDS: Senna/Docusate Sodium 8.6/50 MG Tablet PO SCH ×2 (08:14→21:46)
[2017-11-09] MEDS: Pantoprazole Inj 40 MG Vial IV.PUSH SCH (08:15)
[2017-11-09] MEDS: Chlorhexidine 0.12% Oral Kit 15 ML UDC OROPHARYNG SCH ×2 (08:18→21:45)
[2017-11-09] MEDS: Hypromellose 0.3% Opth Gel 10 GM Bottle EACH EYE SCH ×3 (09:00→23:55)
[2017-11-09] MEDS: Insulin NovoLOG Aspart Correctional Sugar Inj SQ SCH ×3 (12:00→23:55)
--- NOTE | 2017-11-09 15:56 | ECG ---
Date Performed: 11/09/2017 Time Performed: 06:15:32 PTAGE: 72 years EKG: Sinus bradycardia with PVC(s). Left anterior fascicular block rSr'(V1) - probable normal va riant Septal and lateral ST-T changes are nonspecific Borderline ECG Since PREVIOUS TRACING , no significant change noted PREVIOUS TRACIN11/08/2017 20.38.14 DOCTOR: Kyle Malcolm Interpretating Date/Time 11/09/2017 15:55:18
--- NOTE | 2017-11-09 15:56 | ECG ---
Date Performed: 11/08/2017 Time Performed: 20:38:14 PTAGE: 72 years EKG: BASELINE ARTIFACT AXIS LEFTWARD NONSPECIFIC T-WAVE CHANGE SLIGHT VENTRICULAR CONDUCTION DIS TURBANCE Compared to previous tracing, PVCs no longer present. ABNORMAL ECG PREVIOUS TRACING : 08/04/2015 01.31 DOCTOR: Kyle Malcolm Interpretating Date/Time 11/09/2017 15:54:55
[2017-11-09] MEDS ORDERED: Labetalol HCl Inj 100 MG/20 ML Vial IV.PUSH PRN (20:21)
[2017-11-09] MEDS: Enoxaparin Inj 40 MG/0.4 ML Syringe SQ SCH (21:44)
[2017-11-10] MEDS: Oral Hygiene Kit OROPHARYNG SCH ×3 (02:59→20:57)
[2017-11-10] MEDS: Chlorhexidine Gluconate 2% 1 Pack (2 Cloths) TOPICAL SCH (02:59)
[2017-11-10] MEDS: Insulin NovoLOG Aspart Correctional Sugar Inj SQ SCH ×3 (05:44→20:57)
[2017-11-10] MEDS: Levothyroxine 50 MCG Tablet PO SCH (05:47)
[2017-11-10] MEDS ORDERED: Dexmedetomidine Inj 800 MCG in Sodium Chlor 0.9% Inj 42 ML IV.CONT PRN ×2 (08:24→14:00)
[2017-11-10] MEDS ORDERED: Labetalol HCl Inj 100 MG/20 ML Vial IV.PUSH PRN ×2 (08:27→16:41)
--- NOTE | 2017-11-10 08:33 | P.PNCC ---
Subjective Subjective Remarks/Hospital Course: 72-year-old female with past medical history of bipolar depression, hyperlipidemia, mild coronary artery disease on left heart cath 2011, hypothyroidism, ongoing tobacco abuse who presented to [facility] emergency department with altered mental status after she was found down in her home near nearly empty Xanax bottle. Her neighbor reported that she frequently speaks of suicidal intent. GCS was 4 upon arrival. She was intubated for airway protection by Dr. Redman in the emergency department. Prior medication list also include lithium. 11/09: Afebrile. Currently on no sedation but minimally responsive. Positive gag and cough. Urine toxicology screen positive for benzodiazepines only. [place] level 0.8. EKG shows sinus bradycardia with no QTC abnormalities SUBJECTIVE: 11/10: Afebrile. Placed on propofol drip overnight due to hypertension. Will add as needed labetalol but increase to every 1 hours and Nitropaste. Dexmedetomidine drip and attempt to wean if unable to without pharmacological assistance. EEG/MRI brain remains. Objective Vital Signs / I&O: Vital Signs 11/09/17 08:44 11/09/17 09:00 11/09/17 10:00 Temperature Pulse Rate 65 59 L Respiratory Rate 16 16 16 Blood Pressure 110/53 L 125/56 L Pulse Oximetry 100 100 100 11/09/17 11:00 11/09/17 12:00 11/09/17 13:00 Temperature Pulse Rate 60 65 65 Respiratory Rate 16 16 16 Blood Pressure 116/56 L 126/60 147/66 H Pulse Oximetry 100 100 100 11/09/17 13:20 11/09/17 13:21 11/09/17 15:52 Temperature Pulse Rate 67 65 Respiratory Rate 16 17 16 Blood Pressure Pulse Oximetry 100 11/09/17 15:53 11/09/17 19:00 11/09/17 20:00 Temperature 99.9 F H Pulse Rate 72 79 Respiratory Rate 16 16 Blood Pressure 160/71 H 171/75 H Pulse Oximetry 100 100 11/09/17 20:49 11/09/17 21:00 11/09/17 22:00 Temperature Pulse Rate 72 71 75 Respiratory Rate 20 16 15 Blood Pressure 175/76 H 156/71 H Pulse Oximetry 100 100 99 11/09/17 23:00 11/09/17 23:35 11/10/17 00:00 Temperature 99.4 F Pulse Rate 71 73 74 Respiratory Rate 17 20 22 Blood Pressure 146/67 H 169/73 H Pulse Oximetry 99 100 100 11/10/17 01:00 11/10/17 02:00 11/10/17 02:56 Temperature Pulse Rate 70 78 66 Respiratory Rate 22 20 21 Blood Pressure 153/67 H 167/70 H 140/66 Pulse Oximetry 100 100 100 11/10/17 03:05 11/10/17 03:40 11/10/17 04:00 Temperature 99.6 F Pulse Rate 68 70 Respiratory Rate 23 18 25 H Blood Pressure 137/65 Pulse Oximetry 100 100 11/10/17 05:00 11/10/17 06:00 11/10/17 07:00 Temperature Pulse Rate 66 65 65 Respiratory Rate 22 16 22 Blood Pressure 137/65 157/70 H Pulse Oximetry 100 11/10/17 08:10 Temperature Pulse Rate Respiratory Rate 24 Blood Pressure Pulse Oximetry 100 Intake & Output 11/09/17 11/10/17 11/10/17 18:59 06:59 18:59 Intake Total 1999 1050 / 1050 Output Total 1900 / 1900 Balance 1999 -850 / -850 Weight 53.5 kg Intake: IV 1999 1050 / 1050 NS + KCl 20 mEq Inj 1,000 ML @ 1999 1000 / 1000 100 mls/hr IV.CONT .Q10H GRECIA Rx #:[id number] fentaNYL 10 mcg/mL Premix Drip 50 / 50 2,500 mcg In 250 ml @ 25 MCG/HR 2.5 mls/hr IV.SIG TITRATE PRN Rx#:[id number] Oral 0 / 0 Output: Urine Amount (Catheter) 1899 / 0 Indwelling Urethral Catheter 1899 / 1899 Other: # Bowel Movements 0 Result Diagrams: 11/09/17 04:27 11/09/17 04:27 Imaging: Chest X-Ray 11/08/17 20:32 CONCLUSION: 1. ET tube tip 1 cm above the yocasta. 2. The lungs are clear. Head CT 11/08/17 20:33 CONCLUSION: 1. No acute findings in the brain. . Objective Remarks: GENERAL: 72-year-old female currently resting in bed orotracheally intubated SKIN: Warm and dry. We will will schedule hard over her left shoulder and left neal. HEAD: Atraumatic. Normocephalic. EYES: Pupils equal and round about 2 mm bilaterally and reactive. No scleral icterus. No injection or drainage. ENT: No nasal bleeding or discharge. Mucous membranes pink and moist. NECK: Trachea midline. No JVD. CARDIOVASCULAR: RRR. S1, S2 no S4. No murmur RESPIRATORY: No accessory muscle use. Clear to auscultation. Breath sounds equal bilaterally. GASTROINTESTINAL: Abdomen soft, non-tender, nondistended. Hepatic and splenic margins not palpable. MUSCULOSKELETAL: Extremities without without significant peripheral edema. Inverted toes bilaterally.. NEUROLOGICAL: Minimally responsive on the ventilator. Positive gag, cough and corneal reflex. Withdraws to pain bilateral upper and lower extremities and reaches for endotracheal tube. And opens eyes. Positive hip flexors bilaterally.. Assessment and Plan - Assessment and Plan Plan: NEURO/PSYCH: Acute encephalopathy Suspected benzodiazepine overdose Suicidal ideation Diagnoses of bipolar disease I Feroz act Patient is currently on no sedation. Written for propofol was at 20 mcg/kg/min overnight Goal of RASS -2 while intubated Daily sedation vacation CT brain 11/08 revealed no acute intracranial findings MRI brain/EEG at remains encephalopathic Currently holding lithium carbonate 3 mg by mouth twice daily/home medication. Level was 0.8. Resume when clinically indicated. Recheck in a.m. 11/11. Previously on alprazolam 0.25 mg every 6 hours as needed. This has been held. Previously on sertraline 25 mg p.o. daily. This has been held. Previously on pregabalin 50 mg p.o. twice daily. This has been held. Holding aspirin 81 mg daily. Resume clinically indicated Psychiatric evaluation for Feroz duran once extubated and able to interact RESP: Acute respiratory failure secondary to likely overdose possibly intentional Ongoing tobaccoism [facility] /04/26/39 Ventilator bundle Albuterol/ipratropium aerosols every 4 hours with albuterol aerosols every 2 hours as needed for dyspnea CPAP trial/spontaneous breathing trials when clinically indicated Tobacco cessation self evaluation pamphlet will be provided when clinically indicated Chest x-ray on admission revealed no acute cardia pulmonary findings CV: Coronary artery disease Hyperlipidemia History of SVT Currently on 0.9% NaCl with 20 mEq of potassium chloride at 100 cc an hour Left heart catheterization 2011 revealed LAD 50%. RCA PL 40%. EF 60%. Lexiscan 2015 within normal limits. Currently holding lovastatin 10 mg daily/home medication. Resume when clinically indicated. QTC 443. Normal QRS. GI: Hypoalbuminemia Insert OG tube in place to low intermittent wall suction. Start tube feedings with vital 1.5 goal 50 cc an hour if not extubated today Pantoprazole for GI prophylax Docusate sodium/senna 1 tablet twice daily for bowel regimen FEN/RENAL: Urinary retention Gaspar in place. Monitor intake and output. Monitor electrolytes. Replace electrolytes as indicated. ID: Monitor for signs and symptoms of infection. HEME: Leukocytosis Monitor CBC. Monitor trends. No indication for transfusion of blood products at this time ENDO: Hypothyroidism Continue levothyroxine 50 ramon grams daily. TSH was 1.2 Monitor bedside glucose [id number] with aspart sliding scale insulin coverage/low regimen. PROPH: SCDs/enoxaparin 40 mg subcu daily for DVT prophylaxis. Pantoprazole 40 mg IV for stress ulcer prophylaxis ACCESS: Peripheral IV providing adequate access at this time. No family contact information noted in old chart, contact info for friend only . Level 2 followup
[2017-11-10] MEDS: Senna/Docusate Sodium 8.6/50 MG Tablet PO SCH ×2 (09:08→20:20)
[2017-11-10] MEDS: Pantoprazole Inj 40 MG Vial IV.PUSH SCH (09:08)
[2017-11-10] MEDS: Chlorhexidine 0.12% Oral Kit 15 ML UDC OROPHARYNG SCH ×2 (09:09→20:19)
[2017-11-10 09:35] LABS: Baso # (Auto) 0.1 th/mm3 (0.0-0.2); Baso % (Auto) 0.5 % (0.0-2.0); Eos % (Auto) 0.2 % (0.0-4.0); Hematocrit 39.4 % (35.0-46.0); Hemoglobin 12.4 gm/dL (11.6-15.3); Lymph # (Auto) 0.8 th/mm3 (1.0-4.8); Lymph % (Auto) 7.2 % (9.0-44.0); Mean Corpuscular HGB Conc 31.4 % (32.0-36.0); Mean Corpuscular Hemoglobin 30.5 pg (27.0-34.0); Mean Platelet Volume 9.1 fL (7.0-11.0); Mono # (Auto) 0.7 th/mm3 (0.0-0.9); Mono % (Auto) 6.9 % (0.0-8.0); Neut # (Auto) 9.1 th/mm3 (1.8-7.7); Neut % (Auto) 85.2 % (16.0-70.0); Platelet Count 160 th/mm3 (150-450); Red Blood Count 4.06 mil/mm3 (4.00-5.30); Red Cell Distribution Width 14.7 % (11.6-17.2); White Blood Count 10.7 th/mm3 (4.0-11.0)
[2017-11-10 09:41] LABS: Anion Gap 9 meq/L (5-15); Blood Urea Nitrogen 9 mg/dL (7-18); Calcium 8.6 mg/dL (8.5-10.1); Carbon Dioxide 18.8 meq/L (21.0-32.0); Chloride 117 meq/L (98-107); Glomerular Filtration Rate Greater Than 89 mL/min (>89); Glucose,Random 120 mg/dL (74-106); Magnesium 2.1 mg/dL (1.5-2.5); Phosphorus 2.2 mg/dL (2.5-4.9); Potassium 4.2 meq/L (3.5-5.1); Sodium 145 meq/L (136-145)
[2017-11-10] MEDS ORDERED: Potassium Phos/Sodium Phos 250 MG Tablet PO ONE (11:00)
--- NOTE | 2017-11-10 12:07 | MR ---
EXAM DATE: 11/10/2017 11:51 AM EDT AGE/SEX: 72 years / Female INDICATIONS: Altered mental status. CLINICAL DATA: This is the patient's initial encounter. Patient reports that signs and symptoms have been present for 2 days and indicates a pain score of 0/10. MEDICAL/SURGICAL HISTORY: Cardiovascular disease. Hypercholesterolemia. Hypothyroidism. . Ski n graft on leg. Shoulder surgery. COMPARISON: [facility] [place], MR HEAD W/O CONTRAST, 11/10/2017. . TECHNIQUE: 3D rqui-ne-wehmhr MRA was performed. Source images, multiplanar STS MIP, and 3D volum e MIP reconstructions were reviewed. FINDINGS: There is excellent visualization of the major intracranial arteries out to the second-order branch ve ssels. There is no evidence for aneurysm, vessel truncation or stenosis, and no evidence for vascula r malformation. Patient is left vertebral dominant. On the axial source images, apparent dissection l ine in the distal internal carotids is artifactual, related to a Radha effect CONCLUSION: 1. Apparent dissection line in the distal internal carotid arteries at the skull base is artifactual , related to the timing bolus of contrast administration. 2. Otherwise, intracranial vessels are patent without significant stenosis or aneurysmal disease. Pa tient is left vertebral dominant. Electronically signed by: Samuel Kim MD 11/10/2017 12:06 PM EDT
--- NOTE | 2017-11-10 12:15 | MR ---
EXAM DATE: 11/10/2017 11:52 AM EDT AGE/SEX: 72 years / Female INDICATIONS: Altered mental status. CLINICAL DATA: This is the patient's initial encounter. Patient reports that signs and symptoms have been present for 2 days and indicates a pain score of 0/10. MEDICAL/SURGICAL HISTORY: Cardiovascular disease. Hypercholesterolemia. Hypothyroidism. . Ski n graft on leg. Shoulder surgery. COMPARISON: No prior exams available for comparison. TECHNIQUE: Multiplanar, multisequence examination of the brain was performed without contrast. FINDINGS: There is a subtle focal abnormality on the FLAIR weighted images with small area of T2 prolongation in a gyral distribution along the right occipital lobe best seen on axial image #16 of series 4. Ther e are small scattered punctate foci in the white matter characteristic of chronic small vessel ischem ic change. There is no restricted diffusion on the echoplanar weighted images. There is a chronic right subdural hygroma with widening of the subdural space along the frontal and p arietal convexities. The ventricular system is within normal limits. The posterior fossa and brainste m are unremarkable in appearance. The pituitary gland is within normal limits. CONCLUSION: 1. Subtle small area of T2 prolongation in the right occipital lobe of concern for a small area of s ubtle subarachnoid hemorrhage. 2. Mild chronic small vessel ischemic change. 3. 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 Electronically signed by: Max Dean MD 11/10/2017 12:14 PM EDT
[2017-11-10] MEDS ORDERED: Gadobutrol PF 10 MMOL/10 ML Vial (for RAD) IV.SIG ONE (12:18)
--- NOTE | 2017-11-10 13:12 | MR ---
EXAM DATE: 11/10/2017 12:43 PM EDT AGE/SEX: 72 years / Female INDICATIONS: Altered mental status. CLINICAL DATA: This is the patient's initial encounter. Patient reports that signs and symptoms have been present for 2 days and indicates a pain score of 0/10. MEDICAL/SURGICAL HISTORY: Cardiovascular disease. Hypercholesterolemia. Hypothyroidism. . Ski n graft on leg. Shoulder surgery. COMPARISON: No prior exams available for comparison. TECHNIQUE: 10cc ml Gadavist (gadobutrol) contrast infused MRA (single exam dose) of the extracrania l circulation was performed using a neurovascular coil. Postprocessing was performed, including rota ting sub-volume maximum intensity projections of each carotid artery, rotating full-volume maximum in tensity projections of both carotid arteries, sagittal and coronal sliding thin-slab reformations of each carotid artery, and left oblique sliding thin-slab reformation through the aortic arch to includ e the origin of the arch branch vessels. FINDINGS: Aortic Arch : There is a three-vessel origin of the great vessels from the aorta. No evidence of o stial narrowing. Right Carotid : The common carotid artery is intact. The carotid bulb has a normal configuration wi thout ulceration or narrowing. The internal carotid artery lumen is smooth without stenosis. The ex ternal carotid artery is intact. Left Carotid : The common carotid artery is intact. The carotid bulb has a normal configuration wit hout ulceration or narrowing. The internal carotid artery lumen is smooth without stenosis. The ext ernal carotid artery is intact. Vertebrals : The vertebral arteries have a symmetric diameter. No stenotic lesions are seen. CONCLUSION: 1. Unremarkable MRA neck. No aneurysm or dissection or significant carotid stenosis. Percent stenosis is calculated using the diameter of the stenotic region over the diameter of the nor mal distal internal carotid artery Electronically signed by: Dano Robbins MD 11/10/2017 1:11 PM EDT
--- NOTE | 2017-11-10 13:52 | P.DIET ---
Nutritional Evaluation Type of nutrition evaluation: initial Nutrition consult regarding: Tube Feeding Objective - Diagnosis Altered Mental Status - Objective Prole body weight: 54.5 kg Body Weight Used for Calculations: Actual (53.5kg used for assessment here) Energy Needs - Lower Range (kCal/kg): 25 Energy Needs - Upper Range (kCal/kg): 30 Lower Limit kCal/kg (kCals): 1,338 Upper Limit kCal/kg (kCals): 1,605 Lower Limit Protein Factor (Grams per Kg): 1.1 Upper Limit Protein Factor (Grams per Kg): 1.4 Lower Protein Needs (Protein): 59 Upper Protein Needs (Protein): 75 Dietitian Reviewed in Medical Record: Curent medications, Intake & Output, Labs , Medical history, Tube feeding Diet Order: TF'ing ONLY: Vital 1.5 @ 50ml/hr Feeding - Current Tube Feeding Tube Feeding Product: Vital 1.5 Assessment Assessment: Pt is at nutritional risk r/t need for TF'ing. To best meet pt's assessed needs for TF'ing w/Vital 1.5, Rec a goal rate @ 45ml/hr x 22-hr(TF'ing held for Synthroid). Labs reviewed. Additional Recs to follow r/t Clinical Course. Recommendations: 1.To best meet pt's assessed needs for TF'ing w/Vital 1.5, Rec a goal rate @ 45ml/hr x 22-hr(TF'ing held for Synthroid) 2. Additional Recs to follow r/t Clinical Course Dietitian to Monitor: Lab values, Glucose level, Intake & Output, Tube feeding tolerance, Weight change, Medical course
[2017-11-10] MEDS: niCARdipine Inj 25 MG in Sodium Chlor 0.9% Inj 240 ML IV.CONT PRN (14:23)
[2017-11-10] MEDS ORDERED: Thiamine Inj 100 MG in Sodium Chlor 0.9% Inj 100 ML IV.SIG ONE (14:52)
[2017-11-10] MEDS: Hypromellose 0.3% Opth Gel 10 GM Bottle EACH EYE SCH ×2 (17:04→20:56)
--- NOTE | 2017-11-10 18:23 | MG ---
cc: Shmuel Baxter MD ELECTROENCEPHALOGRAM RECORD NUMBER: [id number]. DESCRIPTION: 1-3 Hz delta activity, has frequency artifact occurring 20-60 microvolts in a generalized fashion, bisynchrony. theta activity. History of stage II sleep. Limited driving with photic stimulation. Single lead EKG showing sinus rhythm. INTERPRETATION: Mild to moderate encephalopathy and sleep state. Clinical correlation. MD UMA Dunbar/SATISH , 05:58 PM , 06:22 PM
[2017-11-10 18:40] LABS: Activated Partial Thrombo Time 28.1 sec (24.3-30.1); Prothrombin Time 10.4 sec (9.8-11.6)
[2017-11-11] MEDS: Insulin NovoLOG Aspart Correctional Sugar Inj SQ SCH ×4 (00:12→19:24)
[2017-11-11] MEDS: Oral Hygiene Kit OROPHARYNG SCH ×3 (00:12→21:22)
[2017-11-11] MEDS: niCARdipine Inj 25 MG in Sodium Chlor 0.9% Inj 240 ML IV.CONT PRN (00:13)
[2017-11-11] MEDS: Hypromellose 0.3% Opth Gel 10 GM Bottle EACH EYE SCH ×3 (00:15→21:22)
[2017-11-11] MEDS: Chlorhexidine Gluconate 2% 1 Pack (2 Cloths) TOPICAL SCH (03:20)
[2017-11-11] MEDS: Levothyroxine 50 MCG Tablet PO SCH (05:53)
[2017-11-11 06:57] LABS: Baso % (Auto) 0.3 % (0.0-2.0); Eos % (Auto) 0.2 % (0.0-4.0); Hematocrit 37.6 % (35.0-46.0); Hemoglobin 12.3 gm/dL (11.6-15.3); Lymph # (Auto) 0.5 th/mm3 (1.0-4.8); Lymph % (Auto) 4.7 % (9.0-44.0); Mean Corpuscular HGB Conc 32.7 % (32.0-36.0); Mean Corpuscular Hemoglobin 31.3 pg (27.0-34.0); Mean Corpuscular Volume 95.7 fL (80.0-100.0); Mean Platelet Volume 8.9 fL (7.0-11.0); Mono # (Auto) 0.7 th/mm3 (0.0-0.9); Mono % (Auto) 6.7 % (0.0-8.0); Neut # (Auto) 9.7 th/mm3 (1.8-7.7); Neut % (Auto) 88.1 % (16.0-70.0); Platelet Count 231 th/mm3 (150-450); Red Blood Count 3.93 mil/mm3 (4.00-5.30)
[2017-11-11 07:23] LABS: Albumin 2.7 g/dL (3.4-5.0); Anion Gap 8 meq/L (5-15); Aspartate Aminotransferase 6 U/L (15-37); Blood Urea Nitrogen 10 mg/dL (7-18); Calcium 8.7 mg/dL (8.5-10.1); Carbon Dioxide 20.4 meq/L (21.0-32.0); Chloride 115 meq/L (98-107); Glomerular Filtration Rate 89 mL/min (>89); Glucose,Random 176 mg/dL (74-106); Potassium 4.2 meq/L (3.5-5.1); Sodium 143 meq/L (136-145)
[2017-11-11 07:24] LABS: Alanine Aminotransferase 12 U/L (10-53); Cholesterol 109 mg/dL (120-200); Phosphorus 1.6 mg/dL (2.5-4.9); Triglycerides 68 mg/dL (42-150)
[2017-11-11 07:27] LABS: Alkaline Phosphatase 66 U/L (45-117); Chol/HDL Ratio 1.86 Ratio; HDL Cholesterol 58.5 mg/dL (40.0-60.0); LDL Cholesterol,Calculated 37 mg/dL (0-99); Total Protein 6.1 g/dL (6.4-8.2)
--- NOTE | 2017-11-11 09:16 | P.PNCC ---
Subjective Subjective Remarks/Hospital Course: 72-year-old female with past medical history of bipolar depression, hyperlipidemia, mild coronary artery disease on left heart cath 2011, hypothyroidism, ongoing tobacco abuse who presented to [facility] emergency department with altered mental status after she was found down in her home near nearly empty Xanax bottle. Her neighbor reported that she frequently speaks of suicidal intent. GCS was 4 upon arrival. She was intubated for airway protection by Dr. Redman in the emergency department. Prior medication list also include lithium. 11/09: Afebrile. Currently on no sedation but minimally responsive. Positive gag and cough. Urine toxicology screen positive for benzodiazepines only. [place] level 0.8. EKG shows sinus bradycardia with no QTC abnormalities 11/10: Afebrile. Placed on propofol drip overnight due to hypertension. Will add as needed labetalol but increase to every 1 hours and Nitropaste. Dexmedetomidine drip and attempt to wean if unable to without pharmacological assistance. EEG/MRI brain remains SUBJECTIVE: 11/11: Resting comfortably in bed. More arousable but does not follow commands. Eyes are open and moves all 4 extremities spontaneously but not purposefully. Noted MRI brain yesterday revealed chronic likely subdural hygromas right frontal/parietal. Small right occipital subarachnoid hemorrhage. Received brain CT this a.m. pending. Emesis overnight. Will check ABG and chest x-ray this morning. Objective Vital Signs / I&O: Vital Signs 11/10/17 10:00 11/10/17 11:00 11/10/17 11:14 Temperature Pulse Rate 66 64 Respiratory Rate 26 H 26 H Blood Pressure 148/68 H 157/68 H Pulse Oximetry 100 100 11/10/17 11:29 11/10/17 13:00 11/10/17 14:00 Temperature Pulse Rate 69 67 68 Respiratory Rate 33 H Blood Pressure 167/70 H 151/66 H 165/72 H Pulse Oximetry 100 100 98 11/10/17 15:00 11/10/17 15:15 11/10/17 15:30 Temperature Pulse Rate 72 71 72 Respiratory Rate 21 Blood Pressure 126/61 125/56 L 122/57 L Pulse Oximetry 94 L 95 96 11/10/17 16:00 11/10/17 17:00 11/10/17 18:00 Temperature Pulse Rate 76 71 72 Respiratory Rate Blood Pressure 118/58 L 124/57 L Pulse Oximetry 97 96 100 11/10/17 19:00 11/10/17 20:00 11/10/17 20:53 Temperature Pulse Rate 68 76 77 Respiratory Rate 28 H Blood Pressure Pulse Oximetry 98 96 98 11/10/17 21:00 11/10/17 22:00 11/10/17 23:00 Temperature Pulse Rate 81 79 80 Respiratory Rate 20 20 20 Blood Pressure 117/74 136/53 L 141/56 H Pulse Oximetry 100 11/11/17 00:00 11/11/17 00:41 11/11/17 01:00 Temperature 99.0 F Pulse Rate 79 86 87 Respiratory Rate 20 23 20 Blood Pressure 138/56 L 146/59 H Pulse Oximetry 100 99 11/11/17 02:00 11/11/17 03:00 11/11/17 03:47 Temperature Pulse Rate 81 86 81 Respiratory Rate 20 20 20 Blood Pressure 141/59 H 131/57 L Pulse Oximetry 100 100 11/11/17 04:00 11/11/17 04:16 11/11/17 05:00 Temperature 98.9 F Pulse Rate 80 74 Respiratory Rate 20 20 20 Blood Pressure 125/76 129/62 Pulse Oximetry 100 100 100 11/11/17 05:56 11/11/17 07:53 11/11/17 07:55 Temperature Pulse Rate 72 69 Respiratory Rate 20 20 20 Blood Pressure 124/54 L Pulse Oximetry 100 100 Intake & Output 11/10/17 11/11/17 11/11/17 18:59 06:59 18:59 Intake Total 1050 / 1050 1619 / 1619 Output Total 1750 / 1750 3500 / 3500 Balance -700 / -700 -1881 / -1881 Weight 53 kg Intake: IV 1000 / 1000 1351 / 1351 NS + KCl 20 mEq Inj 1,000 ML @ 1000 / 1000 1000 / 1000 100 mls/hr IV.CONT .Q10H GRECIA Rx #:[id number] Cardene Inj 25 MG In NS Inj 240 250 / 250 ML @ 1 MG/HR 10 mls/hr IV.CONT TITRATE PRN Rx#:[id number] Thiamine Inj 100 MG In NS Inj 101 / 101 100 ML @ 100 mls/hr IV.SIG ONCE ONE Rx#:[id number] Oral 0 / 0 Tube Feeding 50 / 50 268 / 268 Output: Urine 1000 / 1000 Urine Amount (Catheter) 1750 / 1750 2500 / 2500 Indwelling Urethral Catheter 1750 / 1750 2500 / 2500 Other: Other Intake Source Saline Solution Saline Solution # Bowel Movements 0 Result Diagrams: 11/11/17 06:12 11/11/17 06:12 Imaging: ITS Impressions Chest X-Ray 11/08/17 20:32 CONCLUSION: 1. ET tube tip 1 cm above the yocasta. 2. The lungs are clear. Head CT 11/08/17 20:33 CONCLUSION: 1. No acute findings in the brain. . Head MRI 11/10/17 00:00 CONCLUSION: 1. Subtle small area of T2 prolongation in the right occipital lobe of concern for a small area of subtle subarachnoid hemorrhage. 2. Mild chronic small vessel ischemic change. 3. 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 Head MRA 11/10/17 10:47 CONCLUSION: 1. Apparent dissection line in the distal internal carotid arteries at the skull base is artifactual, related to the timing bolus of contrast administration. 2. Otherwise, intracranial vessels are patent without significant stenosis or aneurysmal disease. Patient is left vertebral dominant. Neck MRA 11/10/17 10:47 CONCLUSION: 1. Unremarkable MRA neck. No aneurysm or dissection or significant carotid stenosis. Percent stenosis is calculated using the diameter of the stenotic region over the diameter of the normal distal internal carotid artery Objective Remarks: GENERAL: 72-year-old female currently resting in bed orotracheally intubated SKIN: Warm and dry. We will will schedule hard over her left shoulder and left neal. HEAD: Atraumatic. Normocephalic. EYES: Pupils equal and round about 2 mm bilaterally and reactive. No scleral icterus. No injection or drainage. ENT: No nasal bleeding or discharge. Mucous membranes pink and moist. NECK: Trachea midline. No JVD. CARDIOVASCULAR: RRR. S1, S2 no S4. No murmur RESPIRATORY: No accessory muscle use. Few rhonchorous breath sounds appreciated anteriorly bilaterally. No wheezing GASTROINTESTINAL: Abdomen soft, non-tender, nondistended. Hepatic and splenic margins not palpable. MUSCULOSKELETAL: Extremities without without significant peripheral edema. Inverted toes bilaterally.. NEUROLOGICAL: Arousable on the ventilator and moves all 4 extremities to noxious stimulation but not following commands. Eyes do open to stimulation only. Positive gag, cough and corneal reflex. . Assessment and Plan - Assessment and Plan Plan: NEURO/PSYCH: Acute encephalopathy Suspected benzodiazepine overdose Suicidal ideation Diagnoses of bipolar disease I Small right occipital subarachnoid hemorrhage Right subdural hygroma frontal/parietal Redman act Patient is currently on no sedation. Goal of RASS 0while intubated Daily sedation vacation CT brain 11/08 revealed no acute intracranial findings MRI brain revealed right subdural hygroma involving the frontal and parietal regions. Small right occipital subarachnoid hemorrhage. MRA brain/neck revealed no acute findings EEG revealed mild to moderate encephalopathy. Sleep state. No epileptiform activity. Pending neuro and neurosurgery consults Currently holding lithium carbonate 3 mg by mouth twice daily/home medication. Level was 0.8. Resume when clinically indicated. Recheck in a.m. 11/11. Previously on alprazolam 0.25 mg every 6 hours as needed. This has been held. Previously on sertraline 25 mg p.o. daily. This has been held. Previously on pregabalin 50 mg p.o. twice daily. This has been held. Holding aspirin 81 mg daily. Resume clinically indicated Psychiatric evaluation for Redman act once extubated and able to interact RESP: Acute respiratory failure secondary to likely overdose possibly intentional Ongoing tobaccoism [facility] 16/04/26/39 Ventilator bundle Albuterol/ipratropium aerosols every 4 hours with albuterol aerosols every 2 hours as needed for dyspnea CPAP trial/spontaneous breathing trials when clinically indicated Tobacco cessation self evaluation pamphlet will be provided when clinically indicated Chest x-ray on admission revealed no acute cardia pulmonary findings ABG/chest x-ray this a.m. ordered CV: Coronary artery disease Hyperlipidemia History of SVT Currently on 0.9% NaCl with 20 mEq of potassium chloride at 100 cc an hour Left heart catheterization 2011 revealed LAD 50%. RCA PL 40%. EF 60%. Lexiscan 2015 within normal limits. Currently holding lovastatin 10 mg daily/home medication. Resume when clinically indicated. QTC 443. Normal QRS. Currently on nicardipine drip at t 2 mg an hour to maintain systolic blood pressure less than 140 GI: Hypoalbuminemia Really has a G-tube Continue tube feedings with vital 1.5 goal 45 cc an hour if not extubated today Pantoprazole for GI prophylax Docusate sodium/senna 1 tablet twice daily for bowel regimen FEN/RENAL: Urinary retention Hypophosphatemia Gaspar in place. Monitor intake and output. Monitor electrolytes. Replace electrolytes as indicated. 30 mmol sodium phosphate IV times now. Recheck in a.m. ID: Monitor for signs and symptoms of infection. HEME: Monitor CBC. Monitor trends. No indication for transfusion of blood products at this time ENDO: Hypothyroidism Continue levothyroxine 50 ramon grams daily. TSH was 1.2 Monitor bedside glucose [id number] with aspart sliding scale insulin coverage/low regimen. PROPH: SCDs/enoxaparin 40 mg subcu daily for DVT prophylaxis held for the next 48 hours status post subarachnoid as above. Resume when okay with neurosurgery. Pantoprazole 40 mg IV for stress ulcer prophylaxis ACCESS: Peripheral IV providing adequate access at this time. No family contact information noted in old chart, contact info for friend only . Case management consult Level 2 followup
--- NOTE | 2017-11-11 09:57 | P.CONNEU ---
History of Present Illness Service: Neurology Primary Care Provider: No Primary Care Physician Family Provider: No Primary Care Physician Chief Complaint: Altered mental status History of Present Illness: 72-year-old female admitted for mental status changes. Apparently found by neighbor/friend down empty bottle of pills Xanax. Intubated for airway protection neurology consult for further evaluation. Unable to obtain any meaningful history from patient at the present time. She does have apparently underlying history of depression chronic tobacco use. Your direction positive for benzos. Currently no leukocytosis. MRI brain scan suggestive of possible tiny subarachnoid hemorrhage in the right occipital region versus contusion injury MRI of the brain and carotids no significant vaso-occlusive disease EEG demonstrating mild to moderate encephalopathy Medical chart reviewed Review of Systems All other systems reviewed negative except as stated in HPI [facility] - History History Provided By: Medical Record - Medical History Medical History: Medical History (Last Reviewed 11/08/17 @ 21:27 by Maite Redman MD) History of left heart catheterization (LHC) (Acute) Abdominal lipoma (Acute) SVT (supraventricular tachycardia) (Acute) Hypothyroid (Acute) HLD (hyperlipidemia) (Acute) CAD (coronary artery disease) (Acute) Bipolar 1 disorder, depressed (Acute) - Surgical History Surgical History: Surgical History (Last Reviewed 11/08/17 @ 21:27 by Miate Redman MD) History of skin graft (Acute) - Family History Family History: Family History (Last Reviewed 11/08/17 @ 21:27 by Maite Redman MD) Other Adopted - Tobacco History Tobacco Use In Past 30 Days: Yes Smoking Status: Smoker, status unknown Tobacco Type: Cigarettes Years Smoked: 57 - Alcohol History How Often Do You Have a Drink Containing Alcohol: Unable to Obtain - Substance Use History Substance History: Unable to Obtain - Travel History History of Recent Travel: No (unable to obtain) - Immunization History Tetanus Immunization: Unable to Assess Hx Influenza Vaccine This Season: Unable to Assess Medications and Allergies Active Medications: Active Medications Acetaminophen (Tylenol Liq) 650 mg PO Q6H PRN PRN Reason: FEVER Al Hydroxide/Mg Hydroxide (Milk Of Magnesia Liq) 30 ml PO Q12H PRN PRN Reason: Mild Constipation Albuterol (Albuterol Neb (Prn)) 2.5 mg NEB Q2HR NEB PRN PRN Reason: SHORTNESS OF BREATH/WHEEZING Albuterol (Duoneb Neb (Grecia)) 1 ampul NEB Q4HR NEB [facility] Last Admin: 11/11/17 07:56 Dose: 1 ampul Artificial Tears (Genteal Severe Dry Eye Relief 0.3% Opth Gel) 1 drops EACH EYE Q8H [facility] Last Admin: 11/11/17 00:15 Dose: 1 drops Bisacodyl (Dulcolax Supp) 10 mg RECTAL DAILY PRN PRN Reason: SEVERE CONSITIPATION Chlorhexidine Gluconate (Peridex 0.12% Oral Kit) 15 ml OROPHARYNG BID@0800, 2000 [facility] Last Admin: 11/10/17 20:19 Dose: 15 ml Chlorhexidine Gluconate (Chlorhexidine 2% Cloth) 3 pack TOPICAL DAILY@0400 [facility] Stop: 11/14/17 03:59 Last Admin: 11/11/17 03:20 Dose: 3 pack Chlorhexidine Gluconate (Chlorhexidine 2% Cloth) 3 pack TOPICAL DAILY@0400 PRN PRN Reason: Extra cloth needed Stop: 11/14/17 03:59 Dextrose (D50w Vial) 50 ml IV.PUSH UNSCH PRN PRN Reason: PER HYPOGLYCEMIA PROTOCOL Glucagon (Glucagon Inj) 1 mg OTHER PRN PRN PRN Reason: for Hypoglycemia Protocol Potassium Chloride/Sodium Chloride (Ns + Kcl 20 Meq Inj) 1,000 mls @ 100 mls/ hr IV.CONT .Q10H [facility] Last Admin: 11/11/17 03:19 Dose: 100 mls/hr Magnesium Sulfate Inj 4 gm/ (Sodium Chloride) 100 mls @ 50 mls/hr IV.SIG UNSCH PRN PRN Reason: For Magnesium 0.9 - 1.1 mg/dL Magnesium Sulfate Inj 2 gm/ (Sodium Chloride) 100 mls @ 50 mls/hr IV.SIG UNSCH PRN PRN Reason: For Magnesium 1.2 - 1.6 mg/dL Potassium Chloride (Kcl 20 Meq Premix Inj) 20 meq in 100 mls @ 50 mls/hr IV.SIG Q2H PRN PRN Reason: For Potassium 3.3 - 3.5 mEq/L Potassium Chloride (Kcl 40 Meq Premix Inj) 40 meq in 100 mls @ 25 mls/hr IV.SIG UNSCH PRN PRN Reason: For Potassium 3.3 - 3.5 mEq/L Potassium Chloride (Kcl 20 Meq Premix Inj) 20 meq in 100 mls @ 50 mls/hr IV.SIG Q2H PRN PRN Reason: For Potassium 2.8 - 3.2 mEq/L Potassium Phosphate 30 mmol/ (Sodium Chloride) 260 mls @ 42 mls/hr IV.SIG UNSCH PRN PRN Reason: SEE LABEL COMMENTS Sodium Phosphate 30 mmol/ (Sodium Chloride) 260 mls @ 42 mls/hr IV.SIG UNSCH PRN PRN Reason: For Phosphorus < 2.5 mg/dL Potassium Chloride (Kcl 40 Meq Premix Inj) 40 meq in 100 mls @ 25 mls/hr IV.SIG Q2H PRN PRN Reason: For Potassium 2.8 - 3.2 mEq/L Dexmedetomidine HCl 800 mcg/ (Sodium Chloride) 50 mls @ 0.66 mls/hr IV.CONT TITRATE PRN; Protocol PRN Reason: See Protocol Nicardipine HCl 25 mg/ Sodium (Chloride) 250 mls @ 10 mls/hr IV.CONT TITRATE PRN; Protocol PRN Reason: Per Protocol Last Admin: 11/11/17 00:13 Dose: 2 mg/hr, 20 mls/hr Sodium Phosphate 30 mmol/ (Sodium Chloride) 260 mls @ 40 mls/hr IV.SIG ONCE ONE Stop: 11/11/17 15:47 Insulin Aspart (Novolog Insulin Correctional Sugar Inj) 0 unit SQ Q6HR [facility]; Protocol Last Admin: 11/11/17 05:54 Dose: 1 unit Labetalol HCl (Trandate Inj) 10 mg IV.PUSH Q1H PRN PRN Reason: SBP >160 Labetalol HCl (Trandate Inj) 10 mg IV.PUSH Q1H PRN PRN Reason: BLOOD PRESSURE MANAGEMENT Lactulose (Lactulose Liq) 30 ml PO DAILY PRN PRN Reason: SEVERE CONSITIPATION Levothyroxine Sodium (Synthroid) 50 mcg PO DAILY@0600 [facility] Last Admin: 11/11/17 05:53 Dose: 50 mcg Magnesium Oxide (Mag-Ox) 800 mg PO UNSCH PRN PRN Reason: For Magnesium 1.2 - 1.6 mg/dL Pantoprazole Sodium (Protonix Inj) 40 mg IV.PUSH DAILY [facility] Last Admin: 11/10/17 09:08 Dose: 40 mg Potassium Bicarb/Potassium Chloride (K-Lyte Cl Eff) 50 meq PO UNSCH PRN PRN Reason: For Potassium 3.3 - 3.5 mEq/L Potassium Phosphate (K-Phos Original) 2,000 mg PO Q4H PRN PRN Reason: Phosphorus Less Than 2.5 mg/dL Potassium Phosphate (K-Phos Original) 2,000 mg PO UNSCH PRN PRN Reason: SEE LABEL COMMENTS Senna/Docusate Sodium (Steph-Colace) 1 tab PO BID [facility] Last Admin: 11/10/17 20:20 Dose: 1 tab Sennosides (Senokot) 17.2 mg PO Q12H PRN PRN Reason: Moderate Constipation Sodium Chloride (Ns Flush) 2 ml IV.FLUSH BID [facility] Last Admin: 11/10/17 20:19 Dose: 2 ml Sodium Chloride (Ns Flush) 2 ml IV.FLUSH PRN PRN PRN Reason: FLUSH AFTER USING IV ACCESS Thiamine HCl (Vitamin B1) 100 mg PO BID [facility] Allergies Allergy/AdvReac Type Severity Reaction Status Date / Time lamotrigine Allergy Unknown Rash Unverified 12/04/16 14:42 Home Medications Medication Instructions Recorded Confirmed Type Unable to Obtain Home Meds 11/08/17 11/08/17 History Exam Vital signs: Vital Signs 11/10/17 10:00 11/10/17 11:00 11/10/17 11:14 Temperature Pulse Rate 66 64 Respiratory Rate 26 H 26 H Blood Pressure 148/68 H 157/68 H Pulse Oximetry 100 100 11/10/17 11:29 11/10/17 13:00 11/10/17 14:00 Temperature Pulse Rate 69 67 68 Respiratory Rate 33 H Blood Pressure 167/70 H 151/66 H 165/72 H Pulse Oximetry 100 100 98 11/10/17 15:00 11/10/17 15:15 11/10/17 15:30 Temperature Pulse Rate 72 71 72 Respiratory Rate 21 Blood Pressure 126/61 125/56 L 122/57 L Pulse Oximetry 94 L 95 96 11/10/17 16:00 11/10/17 17:00 11/10/17 18:00 Temperature Pulse Rate 76 71 72 Respiratory Rate Blood Pressure 118/58 L 124/57 L Pulse Oximetry 97 96 100 11/10/17 19:00 11/10/17 20:00 11/10/17 20:53 Temperature Pulse Rate 68 76 77 Respiratory Rate 28 H Blood Pressure Pulse Oximetry 98 96 98 11/10/17 21:00 11/10/17 22:00 11/10/17 23:00 Temperature Pulse Rate 81 79 80 Respiratory Rate 20 20 20 Blood Pressure 117/74 136/53 L 141/56 H Pulse Oximetry 100 11/11/17 00:00 11/11/17 00:41 11/11/17 01:00 Temperature 99.0 F Pulse Rate 79 86 87 Respiratory Rate 20 23 20 Blood Pressure 138/56 L 146/59 H Pulse Oximetry 100 99 11/11/17 02:00 11/11/17 03:00 11/11/17 03:47 Temperature Pulse Rate 81 86 81 Respiratory Rate 20 20 20 Blood Pressure 141/59 H 131/57 L Pulse Oximetry 100 100 11/11/17 04:00 11/11/17 04:16 11/11/17 05:00 Temperature 98.9 F Pulse Rate 80 74 Respiratory Rate 20 20 20 Blood Pressure 125/76 129/62 Pulse Oximetry 100 100 100 11/11/17 05:56 11/11/17 07:53 11/11/17 07:55 Temperature Pulse Rate 72 69 Respiratory Rate 20 20 20 Blood Pressure 124/54 L Pulse Oximetry 100 100 Intake & Output 11/10/17 11/11/17 11/11/17 18:59 06:59 18:59 Intake Total 1050 / 1050 1619 / 1619 Output Total 1750 / 1750 3500 / 3500 Balance -700 / -700 -1881 / -1881 Weight 53 kg Intake: IV 1000 / 1000 1351 / 1351 NS + KCl 20 mEq Inj 1,000 ML @ 1000 / 1000 1000 / 1000 100 mls/hr IV.CONT .Q10H [facility] Rx #:[id number] Cardene Inj 25 MG In NS Inj 240 250 / 250 ML @ 1 MG/HR 10 mls/hr IV.CONT TITRATE PRN Rx#:[id number] Thiamine Inj 100 MG In NS Inj 101 / 101 100 ML @ 100 mls/hr IV.SIG ONCE ONE Rx#:[id number] Oral 0 / 0 Tube Feeding 50 / 50 268 / 268 Output: Urine 1000 / 1000 Urine Amount (Catheter) 1750 / 1750 2500 / 2500 Indwelling Urethral Catheter 1750 / 1750 2500 / 2500 Other: Other Intake Source Saline Solution Saline Solution # Bowel Movements 0 Narrative: GENERAL: Intubated SKIN: Warm and dry. HEAD: Normocephalic. EYES: No scleral icterus. NECK: Supple, trachea midline. CARDIOVASCULAR: Regular rate and rhythm without murmurs RESPIRATORY: Breath sounds equal bilaterally. No accessory muscle use. GASTROINTESTINAL: Abdomen soft, non-tender, nondistended. MUSCULOSKELETAL: No cyanosis, or edema. neurology: Intubated, arousable partially opens eyes appears to follow simple motor request wiggling her toes and opening closing her eyes - Constitutional no acute distress - Routine HEENT Exam Head: Present: normocephalic Results - Labs CBC & Chem 7: 11/12/17 00:40 11/12/17 00:40 Labs: Laboratory Results - last 24 hr 11/10/17 11/10/17 11/10/17 13:04 18:05 18:05 WBC RBC Hgb Hct MCV MCH MCHC RDW Plt Count MPV Neut % (Auto) Lymph % (Auto) [place] % (Auto) Eos % (Auto) Baso % (Auto) Neut # (Auto) Lymph # (Auto) [place] # (Auto) Eos # (Auto) Baso # (Auto) WBC Differential Differential Comment PT 10.4 INR 1.0 APTT 28.1 Fibrinogen 492 H Sodium Potassium Chloride Carbon Dioxide Anion Gap BUN Creatinine Estimated GFR POC Glucose 109 Random Glucose Calcium Phosphorus Magnesium Total Bilirubin AST ALT Alkaline Phosphatase Total Protein Albumin Triglycerides Cholesterol LDL Cholesterol, Calc HDL Cholesterol Cholesterol/HDL Ratio 11/11/17 11/11/17 11/11/17 05:33 06:12 06:12 WBC 11.0 RBC 3.93 L Hgb 12.3 Hct 37.6 MCV 95.7 MCH 31.3 MCHC 32.7 RDW 14.0 Plt Count 231 D MPV 8.9 Neut % (Auto) 88.1 H Lymph % (Auto) 4.7 L [place] % (Auto) 6.7 Eos % (Auto) 0.2 Baso % (Auto) 0.3 Neut # (Auto) 9.7 H Lymph # (Auto) 0.5 L [place] # (Auto) 0.7 Eos # (Auto) 0.0 Baso # (Auto) 0.0 WBC Differential . Differential Comment Auto diff final PT INR APTT Fibrinogen Sodium 143 Potassium 4.2 Chloride 115 H Carbon Dioxide 20.4 L Anion Gap 8 BUN 10 Creatinine 0.65 Estimated GFR 89 POC Glucose 184 H Random Glucose 176 H Calcium 8.7 Phosphorus 1.6 L Magnesium 2.0 Total Bilirubin 0.3 AST 6 L ALT 12 Alkaline Phosphatase 66 Total Protein 6.1 L Albumin 2.7 L Triglycerides 68 Cholesterol 109 L LDL Cholesterol, Calc 37 HDL Cholesterol 58.5 Cholesterol/HDL Ratio 1.86 - Imaging Impressions Head MRI 11/10/17 00:00 CONCLUSION: 1. Subtle small area of T2 prolongation in the right occipital lobe of concern for a small area of subtle subarachnoid hemorrhage. 2. Mild chronic small vessel ischemic change. 3. 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 Head MRA 11/10/17 10:47 CONCLUSION: 1. Apparent dissection line in the distal internal carotid arteries at the skull base is artifactual, related to the timing bolus of contrast administration. 2. Otherwise, intracranial vessels are patent without significant stenosis or aneurysmal disease. Patient is left vertebral dominant. Neck MRA 11/10/17 10:47 CONCLUSION: 1. Unremarkable MRA neck. No aneurysm or dissection or significant carotid stenosis. Percent stenosis is calculated using the diameter of the stenotic region over the diameter of the normal distal internal carotid artery Review/Management - Diagnosis (1) Acute encephalopathy Code(s): G93.40 - Encephalopathy, unspecified Status: Acute Current Visit: Yes (2) Depression Code(s): F32.9 - Major depressive disorder, single episode, unspecified Status : Acute Current Visit: Yes (3) Hypothyroid Code(s): E03.9 - Hypothyroidism, unspecified Status: Acute Current Visit: Yes (4) HLD (hyperlipidemia) Code(s): E78.5 - Hyperlipidemia, unspecified Status: Acute Current Visit: Yes - Review/Management Plan: Likely associated with secondary effects of benzodiazepines resulting in hypersomnolence encephalopathy Recommendations Follow serial exams Imaging reviewed Discussed with nursing (2) Depression Qualifiers: Depression Type: major depressive disorder
[2017-11-11] MEDS ORDERED: Sodium Phosphate Inj 30 MMOL in Sodium Chlor 0.9% Inj 250 ML IV.SIG ONE (10:30)
[2017-11-11] MEDS: Chlorhexidine 0.12% Oral Kit 15 ML UDC OROPHARYNG SCH ×2 (11:35→21:06)
[2017-11-11] MEDS: Senna/Docusate Sodium 8.6/50 MG Tablet PO SCH ×2 (11:35→21:05)
--- NOTE | 2017-11-11 13:07 | P.CONNS ---
History of Present Illness Service: Neurosurgery Consult date: 11/11/17 Requesting Physician: Low Castellano Reason for Consult: Subdural hygromas Primary Care Provider: No Primary Care Physician Family Provider: No Primary Care Physician Chief Complaint: Altered mental status History of Present Illness: 72-year-old female who was admitted for decreased level of alertness and thus encephalopathy and was intubated for airway control. Initial CT scan of the head did not reveal any acute abnormalities and follow-up MRI scan imaging studies reveal a questionable right occipital subarachnoid hemorrhage as well as bilateral subdural hygromas. Patient is starting to respond more although still not able to wean off the ventilator completely with CPAP trials ongoing. Neurosurgery been consulted for the hygromas and neurology is also on board. Patient cannot obviously relate any history and there are no family members available at this point. Review of Systems unobtainable due to endotracheal tube PMFSH - History History Provided By: Medical Record - Medical History Medical History: Medical History (Last Reviewed 11/08/17 @ 21:27 by Maite Redman MD) History of left heart catheterization (LHC) (Acute) Abdominal lipoma (Acute) SVT (supraventricular tachycardia) (Acute) Hypothyroid (Acute) HLD (hyperlipidemia) (Acute) CAD (coronary artery disease) (Acute) Bipolar 1 disorder, depressed (Acute) - Surgical History Surgical History: Surgical History (Last Reviewed 11/08/17 @ 21:27 by Maite Redman MD) History of skin graft (Acute) - Family History Family History: Family History (Last Reviewed 11/08/17 @ 21:27 by Maite Redman MD) Other Adopted - Tobacco History Tobacco Use In Past 30 Days: Yes Smoking Status: Smoker, status unknown Tobacco Type: Cigarettes Years Smoked: 57 - Alcohol History How Often Do You Have a Drink Containing Alcohol: Unable to Obtain - Substance Use History Substance History: Unable to Obtain - Travel History History of Recent Travel: No (unable to obtain) - Immunization History Tetanus Immunization: Unable to Assess Hx Influenza Vaccine This Season: Unable to Assess Medications and Allergies Active Medications: Active Medications Acetaminophen (Tylenol Liq) 650 mg PO Q6H PRN PRN Reason: FEVER Al Hydroxide/Mg Hydroxide (Milk Of Magnesia Liq) 30 ml PO Q12H PRN PRN Reason: Mild Constipation Albuterol (Albuterol Neb (Prn)) 2.5 mg NEB Q2HR NEB PRN PRN Reason: SHORTNESS OF BREATH/WHEEZING Albuterol (Duoneb Neb ([facility])) 1 ampul NEB Q4HR NEB [facility] Last Admin: 11/11/17 11:27 Dose: 1 ampul Artificial Tears (Genteal Severe Dry Eye Relief 0.3% Opth Gel) 1 drops EACH EYE Q8H [facility] Last Admin: 11/11/17 11:34 Dose: 1 drops Bisacodyl (Dulcolax Supp) 10 mg RECTAL DAILY PRN PRN Reason: SEVERE CONSITIPATION Chlorhexidine Gluconate (Peridex 0.12% Oral Kit) 15 ml OROPHARYNG BID@0800, 2000 [facility] Last Admin: 11/11/17 11:35 Dose: 15 ml Chlorhexidine Gluconate (Chlorhexidine 2% Cloth) 3 pack TOPICAL DAILY@0400 [facility] Stop: 11/14/17 03:59 Last Admin: 11/11/17 03:20 Dose: 3 pack Chlorhexidine Gluconate (Chlorhexidine 2% Cloth) 3 pack TOPICAL DAILY@0400 PRN PRN Reason: Extra cloth needed Stop: 11/14/17 03:59 Dextrose (D50w Vial) 50 ml IV.PUSH UNSCH PRN PRN Reason: PER HYPOGLYCEMIA PROTOCOL Glucagon (Glucagon Inj) 1 mg OTHER PRN PRN PRN Reason: for Hypoglycemia Protocol Potassium Chloride/Sodium Chloride (Ns + Kcl 20 Meq Inj) 1,000 mls @ 100 mls/ hr IV.CONT .Q10H [facility] Last Admin: 11/11/17 11:36 Dose: 100 mls/hr Magnesium Sulfate Inj 4 gm/ (Sodium Chloride) 100 mls @ 50 mls/hr IV.SIG UNSCH PRN PRN Reason: For Magnesium 0.9 - 1.1 mg/dL Magnesium Sulfate Inj 2 gm/ (Sodium Chloride) 100 mls @ 50 mls/hr IV.SIG UNSCH PRN PRN Reason: For Magnesium 1.2 - 1.6 mg/dL Potassium Chloride (Kcl 20 Meq Premix Inj) 20 meq in 100 mls @ 50 mls/hr IV.SIG Q2H PRN PRN Reason: For Potassium 3.3 - 3.5 mEq/L Potassium Chloride (Kcl 40 Meq Premix Inj) 40 meq in 100 mls @ 25 mls/hr IV.SIG UNSCH PRN PRN Reason: For Potassium 3.3 - 3.5 mEq/L Potassium Chloride (Kcl 20 Meq Premix Inj) 20 meq in 100 mls @ 50 mls/hr IV.SIG Q2H PRN PRN Reason: For Potassium 2.8 - 3.2 mEq/L Potassium Phosphate 30 mmol/ (Sodium Chloride) 260 mls @ 42 mls/hr IV.SIG UNSCH PRN PRN Reason: SEE LABEL COMMENTS Sodium Phosphate 30 mmol/ (Sodium Chloride) 260 mls @ 42 mls/hr IV.SIG UNSCH PRN PRN Reason: For Phosphorus < 2.5 mg/dL Potassium Chloride (Kcl 40 Meq Premix Inj) 40 meq in 100 mls @ 25 mls/hr IV.SIG Q2H PRN PRN Reason: For Potassium 2.8 - 3.2 mEq/L Dexmedetomidine HCl 800 mcg/ (Sodium Chloride) 50 mls @ 0.66 mls/hr IV.CONT TITRATE PRN; Protocol PRN Reason: See Protocol Nicardipine HCl 25 mg/ Sodium (Chloride) 250 mls @ 10 mls/hr IV.CONT TITRATE PRN; Protocol PRN Reason: Per Protocol Last Admin: 11/11/17 00:13 Dose: 2 mg/hr, 20 mls/hr Sodium Phosphate 30 mmol/ (Sodium Chloride) 260 mls @ 40 mls/hr IV.SIG ONCE ONE Stop: 11/11/17 16:59 Last Admin: 11/11/17 11:34 Dose: 40 mls/hr Insulin Aspart (Novolog Insulin Correctional Sugar Inj) 0 unit SQ Q6HR [facility]; Protocol Last Admin: 11/11/17 05:54 Dose: 1 unit Labetalol HCl (Trandate Inj) 10 mg IV.PUSH Q1H PRN PRN Reason: SBP >160 Labetalol HCl (Trandate Inj) 10 mg IV.PUSH Q1H PRN PRN Reason: BLOOD PRESSURE MANAGEMENT Lactulose (Lactulose Liq) 30 ml PO DAILY PRN PRN Reason: SEVERE CONSITIPATION Levothyroxine Sodium (Synthroid) 50 mcg PO DAILY@0600 [facility] Last Admin: 11/11/17 05:53 Dose: 50 mcg Magnesium Oxide (Mag-Ox) 800 mg PO UNSCH PRN PRN Reason: For Magnesium 1.2 - 1.6 mg/dL Pantoprazole Sodium (Protonix Inj) 40 mg IV.PUSH DAILY [facility] Last Admin: 11/10/17 09:08 Dose: 40 mg Potassium Bicarb/Potassium Chloride (K-Lyte Cl Eff) 50 meq PO UNSCH PRN PRN Reason: For Potassium 3.3 - 3.5 mEq/L Potassium Phosphate (K-Phos Original) 2,000 mg PO Q4H PRN PRN Reason: Phosphorus Less Than 2.5 mg/dL Potassium Phosphate (K-Phos Original) 2,000 mg PO UNSCH PRN PRN Reason: SEE LABEL COMMENTS Senna/Docusate Sodium (Steph-Colace) 1 tab PO BID [facility] Last Admin: 11/11/17 11:35 Dose: 1 tab Sennosides (Senokot) 17.2 mg PO Q12H PRN PRN Reason: Moderate Constipation Sodium Chloride (Ns Flush) 2 ml IV.FLUSH BID [facility] Last Admin: 11/11/17 11:35 Dose: 2 ml Sodium Chloride (Ns Flush) 2 ml IV.FLUSH PRN PRN PRN Reason: FLUSH AFTER USING IV ACCESS Thiamine HCl (Vitamin B1) 100 mg PO BID [facility] Last Admin: 11/11/17 11:35 Dose: 100 mg Allergies Allergy/AdvReac Type Severity Reaction Status Date / Time lamotrigine Allergy Unknown Rash Unverified 12/04/16 14:42 Home Medications Medication Instructions Recorded Confirmed Type Unable to Obtain Home Meds 11/08/17 11/08/17 History Exam Vital signs: Vital Signs 11/10/17 14:00 11/10/17 15:00 11/10/17 15:15 Temperature Pulse Rate 68 72 71 Respiratory Rate 21 Blood Pressure 165/72 H 126/61 125/56 L Pulse Oximetry 98 94 L 95 11/10/17 15:30 11/10/17 16:00 11/10/17 17:00 Temperature Pulse Rate 72 76 71 Respiratory Rate Blood Pressure 122/57 L 118/58 L 124/57 L Pulse Oximetry 96 97 96 11/10/17 18:00 11/10/17 19:00 11/10/17 20:00 Temperature Pulse Rate 72 68 76 Respiratory Rate Blood Pressure Pulse Oximetry 100 98 96 11/10/17 20:53 11/10/17 21:00 11/10/17 22:00 Temperature Pulse Rate 77 81 79 Respiratory Rate 28 H 20 20 Blood Pressure 117/74 136/53 L Pulse Oximetry 98 11/10/17 23:00 11/11/17 00:00 11/11/17 00:41 Temperature 99.0 F Pulse Rate 80 79 86 Respiratory Rate 20 20 23 Blood Pressure 141/56 H 138/56 L Pulse Oximetry 100 100 99 11/11/17 01:00 11/11/17 02:00 11/11/17 03:00 Temperature Pulse Rate 87 81 86 Respiratory Rate 20 20 20 Blood Pressure 146/59 H 141/59 H 131/57 L Pulse Oximetry 100 100 11/11/17 03:47 11/11/17 04:00 11/11/17 04:16 Temperature 98.9 F Pulse Rate 81 80 Respiratory Rate 20 20 20 Blood Pressure 125/76 Pulse Oximetry 100 100 11/11/17 05:00 11/11/17 05:56 11/11/17 07:53 Temperature Pulse Rate 74 72 Respiratory Rate 20 20 20 Blood Pressure 129/62 124/54 L Pulse Oximetry 100 100 100 11/11/17 07:55 11/11/17 11:26 11/11/17 11:27 Temperature Pulse Rate 69 72 Respiratory Rate 20 20 20 Blood Pressure Pulse Oximetry 100 Intake & Output 11/10/17 11/11/17 11/11/17 18:59 06:59 18:59 Intake Total 1050 / 1050 1619 / 1619 0 / 0 Output Total 1750 / 1750 3500 / 3500 Balance -700 / -700 -1881 / -1881 0 / 0 Weight 53 kg Intake: IV 1000 / 1000 1351 / 1351 0 / 0 NS + KCl 20 mEq Inj 1,000 ML @ 1000 / 1000 1000 / 1000 0 / 0 100 mls/hr IV.CONT .Q10H [facility] Rx #:[id number] Cardene Inj 25 MG In NS Inj 240 250 / 250 ML @ 1 MG/HR 10 mls/hr IV.CONT TITRATE PRN Rx#:[id number] Thiamine Inj 100 MG In NS Inj 101 / 101 100 ML @ 100 mls/hr IV.SIG ONCE ONE Rx#:[id number] Oral 0 / 0 Tube Feeding 50 / 50 268 / 268 Output: Urine 1000 / 1000 Urine Amount (Catheter) 1750 / 1750 2500 / 2500 Indwelling Urethral Catheter 1750 / 1750 2500 / 2500 Other: Other Intake Source Saline Solution Saline Solution # Bowel Movements 0 - Constitutional somnolent - Routine HEENT Exam Head: Present: normocephalic, atraumatic Eye: Present: EOMI ENT: Present: mucous membranes moist, external ear normal - Routine Neck Exam Present: supple, full ROM, trachea midline - Routine Respiratory Exam Present: CTA bilaterally - Routine Cardiovascular Exam Present: RRR, S1, S2 - Routine Abdominal Exam Present: soft, normoactive bowel sounds - Routine Extremities Exam Present: full ROM, pulses intact - Routine Skin Exam Present: intact, warm - Routine Neurological Exam She is intubated on ventilator support. Opens eyes to verbal stimulation with equal and reactive pupils bilaterally. She moves upper and lower extremities spontaneously and will intermittently follow commands. - Routine Psychiatric Exam Present: unable to assess Results - Laboratory Findings CBC and BMP: 11/11/17 06:12 11/11/17 06:12 Abnormal lab findings: Abnormal Labs 11/08/17 11/08/17 11/08/17 20:30 20:30 20:50 WBC RBC MCHC Neut % (Auto) 81.4 H Lymph % (Auto) Neut # (Auto) 8.7 H Lymph # (Auto) Fibrinogen ABG pH ABG pO2 ABG HCO3 ABG Base Excess Chloride Carbon Dioxide Estimated GFR POC Glucose Random Glucose Phosphorus AST Troponin I Total Protein Albumin Cholesterol Urine Occult Blood Small H Salicylates Acetaminophen U Benzodiazepines Scrn Pos H 11/08/17 11/08/17 11/08/17 20:50 20:50 21:00 WBC RBC MCHC Neut % (Auto) Lymph % (Auto) Neut # (Auto) Lymph # (Auto) Fibrinogen ABG pH ABG pO2 ABG HCO3 ABG Base Excess Chloride Carbon Dioxide Estimated GFR 74 L POC Glucose Random Glucose Phosphorus AST Troponin I Less than 0.02 L Total Protein Albumin Cholesterol Urine Occult Blood Salicylates Less than 1.7 L Acetaminophen Less than 2.0 L U Benzodiazepines Scrn 11/08/17 11/09/17 11/09/17 21:07 04:27 04:27 WBC 11.9 H RBC MCHC Neut % (Auto) 82.6 H Lymph % (Auto) 8.8 L Neut # (Auto) 9.8 H Lymph # (Auto) Fibrinogen ABG pH 7.33 L ABG pO2 575 H ABG HCO3 20 L ABG Base Excess -4.6 L Chloride 111 H Carbon Dioxide 19.6 L Estimated GFR POC Glucose Random Glucose Phosphorus AST 12 L Troponin I Total Protein 5.7 L D Albumin 3.0 L D Cholesterol Urine Occult Blood Salicylates Acetaminophen U Benzodiazepines Scrn 11/09/17 11/10/17 11/10/17 05:24 08:54 09:09 WBC RBC MCHC 31.4 L Neut % (Auto) 85.2 H Lymph % (Auto) 7.2 L Neut # (Auto) 9.1 H Lymph # (Auto) 0.8 L Fibrinogen ABG pH ABG pO2 ABG HCO3 ABG Base Excess Chloride Carbon Dioxide Estimated GFR POC Glucose 119 H 125 H Random Glucose Phosphorus AST Troponin I Total Protein Albumin Cholesterol Urine Occult Blood Salicylates Acetaminophen U Benzodiazepines Scrn 11/10/17 11/10/17 11/11/17 09:09 18:05 05:33 WBC RBC MCHC Neut % (Auto) Lymph % (Auto) Neut # (Auto) Lymph # (Auto) Fibrinogen 492 H ABG pH ABG pO2 ABG HCO3 ABG Base Excess Chloride 117 H Carbon Dioxide 18.8 L Estimated GFR POC Glucose 184 H Random Glucose 120 H Phosphorus 2.2 L AST Troponin I Total Protein Albumin Cholesterol Urine Occult Blood Salicylates Acetaminophen U Benzodiazepines Scrn 11/11/17 11/11/17 11/11/17 06:12 06:12 10:00 WBC RBC 3.93 L MCHC Neut % (Auto) 88.1 H Lymph % (Auto) 4.7 L Neut # (Auto) 9.7 H Lymph # (Auto) 0.5 L Fibrinogen ABG pH ABG pO2 ABG HCO3 ABG Base Excess Chloride 115 H Carbon Dioxide 20.4 L Estimated GFR POC Glucose 164 H Random Glucose 176 H Phosphorus 1.6 L AST 6 L Troponin I Total Protein 6.1 L Albumin 2.7 L Cholesterol 109 L Urine Occult Blood Salicylates Acetaminophen U Benzodiazepines Scrn - Diagnostic Findings Additional findings: Impressions Head MRI 11/10/17 00:00 CONCLUSION: 1. Subtle small area of T2 prolongation in the right occipital lobe of concern for a small area of subtle subarachnoid hemorrhage. 2. Mild chronic small vessel ischemic change. 3. 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 Head MRA 11/10/17 10:47 CONCLUSION: 1. Apparent dissection line in the distal internal carotid arteries at the skull base is artifactual, related to the timing bolus of contrast administration. 2. Otherwise, intracranial vessels are patent without significant stenosis or aneurysmal disease. Patient is left vertebral dominant. Neck MRA 11/10/17 10:47 CONCLUSION: 1. Unremarkable MRA neck. No aneurysm or dissection or significant carotid stenosis. Percent stenosis is calculated using the diameter of the stenotic region over the diameter of the normal distal internal carotid artery Assessment and Plan - Assessment (1) Subdural hygroma Code(s): D18.1 - Lymphangioma, any site Status: Acute (2) Subarachnoid hemorrhage Code(s): I60.9 - Nontraumatic subarachnoid hemorrhage, unspecified Status: Acute (3) Acute encephalopathy Code(s): G93.40 - Encephalopathy, unspecified Status: Acute - Plan 72-year-old lady who was admitted for encephalopathy and workup with CT and MRI scan reveals a bilateral subdural hygromas right greater than left with the questionable areas of convexity subarachnoid hemorrhage in the occipital aspect. She has been evaluated by neurology and ventilator status is being weaned slowly. The hygromas are an incidental finding and did not require any intervention. I would recommend follow-up CT scan of the head in a couple weeks to ensure no progression of these hygromas. At this point we will see her on a as needed basis.
[2017-11-11 16:38] LABS: Hemoglobin A1c 5.3 % (4.3-6.0)
[2017-11-11] MEDS ORDERED: Naloxone Inj 0.4 MG/ML Vial IV.PUSH ONE (20:18)
--- NOTE | 2017-11-11 22:39 | CT ---
EXAM DATE: 11/11/2017 10:26 PM EDT AGE/SEX: 72 years / Female INDICATIONS: Follow up hemorrhage. CLINICAL DATA: This is the patient's subsequent encounter. Patient reports that signs and symptoms h ave been present for 3 days and indicates a pain score of Nonresponsive. MEDICAL/SURGICAL HISTORY: Cardiovascular disease. None. RADIATION DOSE: 30.42 CTDI (mGy) COMPARISON: [facility], CT HEAD W/O CONTRAST, 11/08/2017. [facility], CT BRAIN W/O CONTRAST, 01/15/2015. . TECHNIQUE: CT of the head without contrast. Using automated exposure control and adjustment of the mA and/or kV according to patient size, radiation dose was kept as low as reasonably achievable to ob tain optimal diagnostic quality images. DICOM format image data is available electronically for revi ew and comparison. FINDINGS: Cerebrum: The ventricles are normal for age. There is some widening of the sylvian fissure. There i s low density seen surrounding the frontal lobes bilaterally likely related to expansion of the intra -axial spaces. No evidence of midline shift, mass lesion, hemorrhage or acute infarction. Posterior Fossa: The cerebellum and brainstem are intact. The 4th ventricle is midline. The cerebe llopontine angle is unremarkable. Extracranial: The visualized portion of the orbits is intact. Skull: The calvaria is intact. No evidence of skull fracture. CONCLUSION: 1. No acute abnormality is seen. 2. Widening of the cortical sulci and some expansion of the extra axial spaces over the frontal lobe s likely related to atrophy. This appearance has progressed since the prior study from 2014. Electronically signed by: Yung Crawford MD 11/11/2017 10:37 PM EDT
[2017-11-12] MEDS: Oral Hygiene Kit OROPHARYNG SCH ×4 (00:26→16:37)
[2017-11-12] MEDS: Hypromellose 0.3% Opth Gel 10 GM Bottle EACH EYE SCH ×4 (00:27→23:51)
[2017-11-12] MEDS: Insulin NovoLOG Aspart Correctional Sugar Inj SQ SCH ×5 (00:33→23:54)
[2017-11-12 01:06] LABS: Baso # (Auto) 0.1 th/mm3 (0.0-0.2); Baso % (Auto) 0.7 % (0.0-2.0); Eos # (Auto) 0.1 th/mm3 (0.0-0.4); Eos % (Auto) 0.9 % (0.0-4.0); Hematocrit 33.9 % (35.0-46.0); Lymph # (Auto) 0.8 th/mm3 (1.0-4.8); Lymph % (Auto) 8.9 % (9.0-44.0); Mean Corpuscular HGB Conc 32.6 % (32.0-36.0); Mean Corpuscular Hemoglobin 30.8 pg (27.0-34.0); Mean Corpuscular Volume 94.6 fL (80.0-100.0); Mean Platelet Volume 8.5 fL (7.0-11.0); Mono # (Auto) 0.7 th/mm3 (0.0-0.9); Mono % (Auto) 7.8 % (0.0-8.0); Neut # (Auto) 7.8 th/mm3 (1.8-7.7); Neut % (Auto) 81.7 % (16.0-70.0); Platelet Count 220 th/mm3 (150-450); Red Blood Count 3.58 mil/mm3 (4.00-5.30); Red Cell Distribution Width 13.8 % (11.6-17.2); White Blood Count 9.6 th/mm3 (4.0-11.0)
[2017-11-12 01:17] LABS: Albumin 2.5 g/dL (3.4-5.0); Anion Gap 5 meq/L (5-15); Aspartate Aminotransferase 8 U/L (15-37); Blood Urea Nitrogen 12 mg/dL (7-18); Calcium 8.1 mg/dL (8.5-10.1); Carbon Dioxide 24.7 meq/L (21.0-32.0); Chloride 116 meq/L (98-107); Glucose,Random 171 mg/dL (74-106); Potassium 4.3 meq/L (3.5-5.1); Sodium 146 meq/L (136-145)
[2017-11-12 01:29] LABS: Alanine Aminotransferase 13 U/L (10-53); Alkaline Phosphatase 57 U/L (45-117); Glomerular Filtration Rate Greater Than 89 mL/min (>89); Total Protein 5.6 g/dL (6.4-8.2)
--- NOTE | 2017-11-12 03:05 | XR ---
EXAM DATE: 11/12/2017 2:56 AM EDT AGE/SEX: 72 years / Female INDICATIONS: Short of breath. CLINICAL DATA: This is the patient's subsequent encounter. Patient reports that signs and symptoms h ave been present for 4 - 6 days and indicates a pain score of Nonresponsive. MEDICAL/SURGICAL HISTORY: Non-responsive. Non-responsive. COMPARISON: [facility] [place], CHEST 1V SINGLE AP, 11/08/2017. . FINDINGS: A single AP view of the chest demonstrates the lungs to be symmetrically aerated without evidence of mass, infiltrate or effusion. The cardiomediastinal contours are unremarkable. Osseous structures a re intact. Endotracheal tube is been backed out slightly and is appropriately positioned above the c suzan. Nasogastric tube enters the stomach. The sidehole is at the GE junction. CONCLUSION: 1. Lungs remain clear. 2. Endotracheal tube has been backed out slightly and is appropriately positioned above the yocasta. 3. Interval placement of the endotracheal tube. Tip enters the stomach but the sidehole is in the ex pected location of the GE junction. Electronically signed by: Samuel Kim MD 11/12/2017 3:04 AM EDT
[2017-11-12] MEDS: Levothyroxine 50 MCG Tablet PO SCH (05:25)
[2017-11-12] MEDS: Chlorhexidine Gluconate 2% 1 Pack (2 Cloths) TOPICAL SCH (05:25)
[2017-11-12] MEDS: Senna/Docusate Sodium 8.6/50 MG Tablet PO SCH ×2 (08:38→20:19)
[2017-11-12] MEDS: Pantoprazole Inj 40 MG Vial IV.PUSH SCH (08:39)
[2017-11-12] MEDS: Chlorhexidine 0.12% Oral Kit 15 ML UDC OROPHARYNG SCH ×2 (08:39→20:20)
[2017-11-12] MEDS ORDERED: Mineral Oil Liq 30 ML UDC PO ONE (10:22)
--- NOTE | 2017-11-12 10:29 | P.PNCC ---
Subjective Subjective Remarks/Hospital Course: 72-year-old female with past medical history of bipolar depression, hyperlipidemia, mild coronary artery disease on left heart cath 2011, hypothyroidism, ongoing tobacco abuse who presented to [facility] emergency department with altered mental status after she was found down in her home near nearly empty Xanax bottle. Her neighbor reported that she frequently speaks of suicidal intent. GCS was 4 upon arrival. She was intubated for airway protection by Dr. Redman in the emergency department. Prior medication list also include lithium. 11/09: Afebrile. Currently on no sedation but minimally responsive. Positive gag and cough. Urine toxicology screen positive for benzodiazepines only. [place] level 0.8. EKG shows sinus bradycardia with no QTC abnormalities 11/10: Afebrile. Placed on propofol drip overnight due to hypertension. Will add as needed labetalol but increase to every 1 hours and Nitropaste. Dexmedetomidine drip and attempt to wean if unable to without pharmacological assistance. EEG/MRI brain remains 11/11: Resting comfortably in bed. More arousable but does not follow commands. Eyes are open and moves all 4 extremities spontaneously but not purposefully. Noted MRI brain yesterday revealed chronic likely subdural hygromas right frontal/parietal. Small right occipital subarachnoid hemorrhage. Received brain CT this a.m. pending. Emesis overnight. Will check ABG and chest x-ray this morning. SUBJECTIVE: 11/12: Afebrile. More alert today. Gave 1 dose of flumazenil with some response. Patient moved more but did not follow commands. Naltrexone with no response. Opens eyes to voice and moves all 4 extremities spontaneously but not following commands. Updated stepdaughter/healthcare proxy. Off all sedation is 3-[address] revealed no acute intracranial findings. Objective Vital Signs / I&O: Vital Signs 11/11/17 11:00 11/11/17 11:26 11/11/17 11:27 Temperature Pulse Rate 71 72 Respiratory Rate 20 20 Blood Pressure Pulse Oximetry 100 100 11/11/17 12:00 11/11/17 13:00 11/11/17 14:00 Temperature 97.1 F L Pulse Rate 70 73 70 Respiratory Rate 14 Blood Pressure 113/95 H Pulse Oximetry 100 100 100 11/11/17 15:00 11/11/17 15:52 11/11/17 15:53 Temperature Pulse Rate 70 75 Respiratory Rate 23 22 Blood Pressure Pulse Oximetry 100 100 11/11/17 16:00 11/11/17 17:00 11/11/17 18:00 Temperature 97.4 F L Pulse Rate 73 68 68 Respiratory Rate 12 Blood Pressure 159/69 H Pulse Oximetry 100 100 100 11/11/17 19:00 11/11/17 19:52 11/11/17 20:00 Temperature 98.5 F Pulse Rate 71 65 64 Respiratory Rate Blood Pressure 132/61 129/61 Pulse Oximetry 100 100 100 11/11/17 21:00 11/11/17 21:13 11/11/17 22:00 Temperature Pulse Rate 65 65 62 Respiratory Rate 25 H Blood Pressure 131/61 130/59 L Pulse Oximetry 100 100 99 11/11/17 22:14 11/11/17 22:16 11/11/17 22:24 Temperature Pulse Rate 65 65 76 Respiratory Rate 30 H 28 H 44 H Blood Pressure 125/60 121/60 136/66 Pulse Oximetry 100 100 100 11/11/17 22:30 11/11/17 23:00 11/12/17 00:00 Temperature Pulse Rate 70 77 70 Respiratory Rate Blood Pressure 145/66 H 137/65 151/67 H Pulse Oximetry 100 100 98 11/12/17 00:06 11/12/17 01:00 11/12/17 02:00 Temperature Pulse Rate 68 71 71 Respiratory Rate 21 Blood Pressure 136/63 150/69 H Pulse Oximetry 100 100 100 11/12/17 02:12 11/12/17 03:00 11/12/17 03:26 Temperature Pulse Rate 70 68 65 Respiratory Rate 21 Blood Pressure 152/68 H 144/65 H Pulse Oximetry 100 100 100 11/12/17 04:00 11/12/17 05:00 11/12/17 06:00 Temperature 99.5 F Pulse Rate 71 73 72 Respiratory Rate Blood Pressure 144/65 H 150/72 H 141/67 H Pulse Oximetry 100 100 100 11/12/17 07:00 11/12/17 08:00 11/12/17 08:27 Temperature Pulse Rate 72 72 73 Respiratory Rate 18 Blood Pressure 150/68 H 154/68 H Pulse Oximetry 100 100 11/12/17 08:29 11/12/17 08:30 11/12/17 08:32 Temperature Pulse Rate 71 Respiratory Rate 17 12 Blood Pressure 162/68 H Pulse Oximetry 100 100 11/12/17 09:00 11/12/17 09:30 11/12/17 10:00 Temperature Pulse Rate 74 72 71 Respiratory Rate Blood Pressure 150/67 H 140/65 139/63 Pulse Oximetry 99 99 100 Intake & Output 11/11/17 11/12/17 11/12/17 18:59 06:59 18:59 Intake Total 626 / 626 2319 / 2319 Output Total 1600 / 1600 1150 / 1150 Balance -974 / -974 1169 / 1169 Weight 55 kg Intake: IV 0 / 0 1999 NS + KCl 20 mEq Inj 1,000 ML @ 0 / 0 1999 100 mls/hr IV.CONT .Q10H [facility] Rx #:[id number] Oral 0 / 0 Tube Feeding 546 / 546 259 / 259 Tube Irrigant 80 / 80 60 / 60 Output: Urine Amount (Catheter) 1600 / 1600 1150 / 1150 Indwelling Urethral Catheter 1600 / 1600 1150 / 1150 Other: # Bowel Movements 0 0 Result Diagrams: 11/12/17 00:40 11/12/17 00:40 Imaging: ITS Impressions Head MRI 11/10/17 00:00 CONCLUSION: 1. Subtle small area of T2 prolongation in the right occipital lobe of concern for a small area of subtle subarachnoid hemorrhage. 2. Mild chronic small vessel ischemic change. 3. 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 Head MRA 11/10/17 10:47 CONCLUSION: 1. Apparent dissection line in the distal internal carotid arteries at the skull base is artifactual, related to the timing bolus of contrast administration. 2. Otherwise, intracranial vessels are patent without significant stenosis or aneurysmal disease. Patient is left vertebral dominant. Neck MRA 11/10/17 10:47 CONCLUSION: 1. Unremarkable MRA neck. No aneurysm or dissection or significant carotid stenosis. Percent stenosis is calculated using the diameter of the stenotic region over the diameter of the normal distal internal carotid artery Head CT 11/11/17 00:00 CONCLUSION: 1. No acute abnormality is seen. 2. Widening of the cortical sulci and some expansion of the extra axial spaces over the frontal lobes likely related to atrophy. This appearance has progressed since the prior study from 2014. Chest X-Ray 11/12/17 06:00 CONCLUSION: 1. Lungs remain clear. 2. Endotracheal tube has been backed out slightly and is appropriately positioned above the yocasta. 3. Interval placement of the endotracheal tube. Tip enters the stomach but the sidehole is in the expected location of the GE junction. Objective Remarks: GENERAL: 72-year-old female currently resting in bed orotracheally intubated SKIN: Warm and dry. We will will schedule hard over her left shoulder and left neal. HEAD: Atraumatic. Normocephalic. EYES: Pupils equal and round about 2 mm bilaterally and reactive. No scleral icterus. No injection or drainage. ENT: No nasal bleeding or discharge. Mucous membranes pink and moist. NECK: Trachea midline. No JVD. CARDIOVASCULAR: RRR. S1, S2 no S4. No murmur RESPIRATORY: No accessory muscle use. Few rhonchorous breath sounds appreciated anteriorly bilaterally. No wheezing GASTROINTESTINAL: Abdomen soft, non-tender, nondistended. Hepatic and splenic margins not palpable. MUSCULOSKELETAL: Extremities without without significant peripheral edema. Inverted toes bilaterally.. NEUROLOGICAL: Arousable on the ventilator and moves all 4 extremities to noxious stimulation but not following commands. Eyes do open to voice and noxious stimulation. Positive gag, cough and corneal reflex. . Assessment and Plan - Assessment and Plan Plan: NEURO/PSYCH: Acute encephalopathy Suspected benzodiazepine overdose Suicidal ideation Diagnoses of bipolar disease I Small right occipital subarachnoid hemorrhage Right subdural hygroma frontal/parietal Redman act Patient is currently on no sedation. Goal of RASS 0while intubated Daily sedation vacation CT brain 11/08 revealed no acute intracranial findings MRI brain revealed right subdural hygroma involving the frontal and parietal regions. Small right occipital subarachnoid hemorrhage. MRA brain/neck revealed no acute findings EEG revealed mild to moderate encephalopathy. Sleep state. No epileptiform activity. Neurosurgery consult appreciated. Recommend repeat CT brain 2-3 weeks. Appreciate neurology consultation. Currently holding lithium carbonate 3 mg by mouth twice daily/home medication. Level was 0.8. Resume when clinically indicated. Recheck in a.m. 11/11. Previously on alprazolam 0.25 mg every 6 hours as needed. This has been held. Previously on sertraline 25 mg p.o. daily. This has been held. Previously on pregabalin 50 mg p.o. twice daily. This has been held. Holding aspirin 81 mg daily. Resume clinically indicated Psychiatric evaluation for Redman act once extubated and able to interact RESP: Acute respiratory failure secondary to likely overdose possibly intentional Ongoing tobaccoism PSYCHIATRIC 16/04/26/39 CPAP trial 01/24 and 40% Ventilator bundle Albuterol/ipratropium aerosols every 4 hours with albuterol aerosols every 2 hours as needed for dyspnea CPAP trial/spontaneous breathing trials when clinically indicated Tobacco cessation self evaluation pamphlet will be provided when clinically indicated Chest x-ray on admission revealed no acute cardia pulmonary findings along with follow-ups CV: Coronary artery disease Hyperlipidemia History of SVT Discontinued IV fluids Left heart catheterization 2011 revealed LAD 50%. RCA PL 40%. EF 60%. Lexiscan 2015 within normal limits. Currently holding lovastatin 10 mg daily/home medication. Resume when clinically indicated. QTC 443. Normal QRS. Currently on nicardipine drip as needed to maintain systolic blood pressure less than 140 Likely can start DVT prophylaxis 11/08 5 AM GI: Hypoalbuminemia Maintain for nasogastric tube Continue tube feedings with vital 1.5 goal 45 cc an hour Lansoprazole for GI prophylax Docusate sodium/senna 1 tablet twice daily for bowel regimen. Add polythene glycol 17 g twice daily and lactulose 30 cc twice daily. Check KUB FEN/RENAL: Urinary retention Gaspar in place. Monitor intake and output. Monitor electrolytes. Replace electrolytes as indicated. ID: Monitor for signs and symptoms of infection. HEME: Monitor CBC. Monitor trends. No indication for transfusion of blood products at this time ENDO: Hypothyroidism Continue levothyroxine 50 ramon grams daily. TSH was 1.2 Monitor bedside glucose [id number] with aspart sliding scale insulin coverage/low regimen. PROPH: SCDs/enoxaparin 40 mg subcu daily for DVT prophylaxis held for the next 48 hours status post subarachnoid as above. Resume when okay with neurosurgery. Lansoprazole 30 mg daily for GI prophylaxis ACCESS: Peripheral IV providing adequate access at this time. Discussed with stepdaughter at bedside. Care plan discussed all questions answered. Level 2 followup
--- NOTE | 2017-11-12 11:48 | XR ---
EXAM DATE: 11/12/2017 11:43 AM EDT AGE/SEX: 72 years / Female INDICATIONS: Ileus CLINICAL DATA: This is the patient's subsequent encounter. Patient reports that signs and symptoms h ave been present for 3 days and indicates a pain score of Nonresponsive. MEDICAL/SURGICAL HISTORY: Non-responsive. Non-responsive. COMPARISON: No prior exams available for comparison. FINDINGS: A single AP supine view of the abdomen and pelvis was obtained. A nasogastric tube is in place with the tip in the proximal stomach. The side-port is at the level of the gastroesophageal junction. Gas and stool is noted throughout the colon with no evidence of obstruction. The bony structures are inta ct. There are no abnormal calcifications. There is a small calcified phlebolith in the right side of the pelvis. CONCLUSION: 1. Unremarkable bowel gas pattern. 2. Nasogastric tube in place with the distal side port at the level of the gastroesophageal junction . Electronically signed by: Max Dean MD 11/12/2017 11:47 AM EDT
--- NOTE | 2017-11-12 18:03 | P.PNNEU ---
Subjective Subjective Comments: No acute events reported Active Medications: Active Medications Acetaminophen (Tylenol Liq) 650 mg PO Q6H PRN PRN Reason: FEVER Last Admin: 11/12/17 16:37 Dose: 650 mg Al Hydroxide/Mg Hydroxide (Milk Of Magnesia Liq) 30 ml PO Q12H PRN PRN Reason: Mild Constipation Albuterol (Albuterol Neb (Prn)) 2.5 mg NEB Q2HR NEB PRN PRN Reason: SHORTNESS OF BREATH/WHEEZING Albuterol (Duoneb Neb (Hon[place])) 1 ampul NEB Q4HR NEB [facility] Last Admin: 11/12/17 15:47 Dose: 1 ampul Artificial Tears (Genteal Severe Dry Eye Relief 0.3% Opth Gel) 1 drops EACH EYE Q8H [facility] Last Admin: 11/12/17 16:37 Dose: 1 drops Bisacodyl (Dulcolax Supp) 10 mg RECTAL DAILY PRN PRN Reason: SEVERE CONSITIPATION Chlorhexidine Gluconate (Peridex 0.12% Oral Kit) 15 ml OROPHARYNG BID@0800, 2000 [facility] Last Admin: 11/12/17 08:39 Dose: 15 ml Chlorhexidine Gluconate (Chlorhexidine 2% Cloth) 3 pack TOPICAL DAILY@0400 [facility] Stop: 11/14/17 03:59 Last Admin: 11/12/17 05:25 Dose: 3 pack Chlorhexidine Gluconate (Chlorhexidine 2% Cloth) 3 pack TOPICAL DAILY@0400 PRN PRN Reason: Extra cloth needed Stop: 11/14/17 03:59 Dextrose (D50w Vial) 50 ml IV.PUSH UNSCH PRN PRN Reason: PER HYPOGLYCEMIA PROTOCOL Glucagon (Glucagon Inj) 1 mg OTHER PRN PRN PRN Reason: for Hypoglycemia Protocol Magnesium Sulfate Inj 4 gm/ (Sodium Chloride) 100 mls @ 50 mls/hr IV.SIG UNSCH PRN PRN Reason: For Magnesium 0.9 - 1.1 mg/dL Magnesium Sulfate Inj 2 gm/ (Sodium Chloride) 100 mls @ 50 mls/hr IV.SIG UNSCH PRN PRN Reason: For Magnesium 1.2 - 1.6 mg/dL Potassium Chloride (Kcl 20 Meq Premix Inj) 20 meq in 100 mls @ 50 mls/hr IV.SIG Q2H PRN PRN Reason: For Potassium 3.3 - 3.5 mEq/L Potassium Chloride (Kcl 40 Meq Premix Inj) 40 meq in 100 mls @ 25 mls/hr IV.SIG UNSCH PRN PRN Reason: For Potassium 3.3 - 3.5 mEq/L Potassium Chloride (Kcl 20 Meq Premix Inj) 20 meq in 100 mls @ 50 mls/hr IV.SIG Q2H PRN PRN Reason: For Potassium 2.8 - 3.2 mEq/L Potassium Phosphate 30 mmol/ (Sodium Chloride) 260 mls @ 42 mls/hr IV.SIG UNSCH PRN PRN Reason: SEE LABEL COMMENTS Last Admin: 11/11/17 17:00 Dose: 42 mls/hr Sodium Phosphate 30 mmol/ (Sodium Chloride) 260 mls @ 42 mls/hr IV.SIG UNSCH PRN PRN Reason: For Phosphorus < 2.5 mg/dL Potassium Chloride (Kcl 40 Meq Premix Inj) 40 meq in 100 mls @ 25 mls/hr IV.SIG Q2H PRN PRN Reason: For Potassium 2.8 - 3.2 mEq/L Dexmedetomidine HCl 800 mcg/ (Sodium Chloride) 50 mls @ 0.66 mls/hr IV.CONT TITRATE PRN; Protocol PRN Reason: See Protocol Nicardipine HCl 25 mg/ Sodium (Chloride) 250 mls @ 10 mls/hr IV.CONT TITRATE PRN; Protocol PRN Reason: Per Protocol Last Admin: 11/11/17 00:13 Dose: 2 mg/hr, 20 mls/hr Insulin Aspart (Novolog Insulin Correctional Sugar Inj) 0 unit SQ Q6HR [facility]; Protocol Last Admin: 11/12/17 11:51 Dose: 1 unit Labetalol HCl (Trandate Inj) 10 mg IV.PUSH Q1H PRN PRN Reason: SBP >160 Last Admin: 11/11/17 19:15 Dose: 10 mg Labetalol HCl (Trandate Inj) 10 mg IV.PUSH Q1H PRN PRN Reason: BLOOD PRESSURE MANAGEMENT Lactulose (Lactulose Liq) 30 ml PO BID [facility] Lactulose (Lactulose Liq) 30 ml PO DAILY PRN PRN Reason: SEVERE CONSITIPATION Lansoprazole (Prevacid Solutab) 30 mg NG/OG DAILY [facility] Levothyroxine Sodium (Synthroid) 50 mcg PO DAILY@0600 [facility] Last Admin: 11/12/17 05:25 Dose: 50 mcg Magnesium Oxide (Mag-Ox) 800 mg PO UNSCH PRN PRN Reason: For Magnesium 1.2 - 1.6 mg/dL Polyethylene Glycol (Miralax) 17 gm PO BID [facility] Potassium Bicarb/Potassium Chloride (K-Lyte Cl Eff) 50 meq PO UNSCH PRN PRN Reason: For Potassium 3.3 - 3.5 mEq/L Potassium Phosphate (K-Phos Original) 2,000 mg PO Q4H PRN PRN Reason: Phosphorus Less Than 2.5 mg/dL Potassium Phosphate (K-Phos Original) 2,000 mg PO UNSCH PRN PRN Reason: SEE LABEL COMMENTS Senna/Docusate Sodium (Steph-Colace) 1 tab PO BID [facility] Last Admin: 11/12/17 08:38 Dose: 1 tab Sennosides (Senokot) 17.2 mg PO Q12H PRN PRN Reason: Moderate Constipation Sodium Chloride (Ns Flush) 2 ml IV.FLUSH BID [facility] Last Admin: 11/12/17 08:39 Dose: 2 ml Sodium Chloride (Ns Flush) 2 ml IV.FLUSH PRN PRN PRN Reason: FLUSH AFTER USING IV ACCESS Thiamine HCl (Vitamin B1) 100 mg PO BID [facility] Last Admin: 11/12/17 08:38 Dose: 100 mg Allergies/Adverse Reactions: Allergies Allergy/AdvReac Type Severity Reaction Status Date / Time lamotrigine Allergy Unknown Rash Unverified 12/04/16 14:42 Review of Systems unobtainable due to endotracheal tube Physical Exam Vital signs: Vital Signs 11/11/17 18:00 11/11/17 19:00 11/11/17 19:52 Temperature Pulse Rate 68 71 65 Respiratory Rate Blood Pressure 132/61 Pulse Oximetry 100 100 100 11/11/17 20:00 11/11/17 21:00 11/11/17 21:13 Temperature 98.5 F Pulse Rate 64 65 65 Respiratory Rate 25 H Blood Pressure 129/61 131/61 Pulse Oximetry 100 100 100 11/11/17 22:00 11/11/17 22:14 11/11/17 22:16 Temperature Pulse Rate 62 65 65 Respiratory Rate 30 H 28 H Blood Pressure 130/59 L 125/60 121/60 Pulse Oximetry 99 100 100 11/11/17 22:24 11/11/17 22:30 11/11/17 23:00 Temperature Pulse Rate 76 70 77 Respiratory Rate 44 H Blood Pressure 136/66 145/66 H 137/65 Pulse Oximetry 100 100 100 11/12/17 00:00 11/12/17 00:06 11/12/17 01:00 Temperature Pulse Rate 70 68 71 Respiratory Rate 21 Blood Pressure 151/67 H 136/63 Pulse Oximetry 98 100 100 11/12/17 02:00 11/12/17 02:12 11/12/17 03:00 Temperature Pulse Rate 71 70 68 Respiratory Rate Blood Pressure 150/69 H 152/68 H 144/65 H Pulse Oximetry 100 100 100 11/12/17 03:26 11/12/17 04:00 11/12/17 05:00 Temperature 99.5 F Pulse Rate 65 71 73 Respiratory Rate 21 Blood Pressure 144/65 H 150/72 H Pulse Oximetry 100 100 100 11/12/17 06:00 11/12/17 07:00 11/12/17 08:00 Temperature Pulse Rate 72 72 72 Respiratory Rate Blood Pressure 141/67 H 150/68 H 154/68 H Pulse Oximetry 100 100 100 11/12/17 08:27 11/12/17 08:29 11/12/17 08:30 Temperature Pulse Rate 73 71 Respiratory Rate 18 17 Blood Pressure 162/68 H Pulse Oximetry 100 100 11/12/17 08:32 11/12/17 09:00 11/12/17 09:30 Temperature Pulse Rate 74 72 Respiratory Rate 12 Blood Pressure 150/67 H 140/65 Pulse Oximetry 99 99 11/12/17 10:00 11/12/17 10:30 11/12/17 11:00 Temperature Pulse Rate 71 71 71 Respiratory Rate Blood Pressure 139/63 143/63 H 144/65 H Pulse Oximetry 100 98 100 11/12/17 11:30 11/12/17 12:00 11/12/17 12:12 Temperature 99.4 F Pulse Rate 68 70 72 Respiratory Rate 11 L 17 18 Blood Pressure 145/66 H 143/104 H Pulse Oximetry 100 100 100 11/12/17 12:13 11/12/17 12:30 11/12/17 13:00 Temperature Pulse Rate 73 70 75 Respiratory Rate 18 16 19 Blood Pressure 153/66 H 155/69 H 144/67 H Pulse Oximetry 100 100 100 11/12/17 13:30 11/12/17 14:00 11/12/17 14:30 Temperature Pulse Rate 75 71 73 Respiratory Rate 15 14 19 Blood Pressure 141/64 H 149/69 H 156/67 H Pulse Oximetry 99 99 99 11/12/17 15:00 11/12/17 15:30 11/12/17 15:44 Temperature Pulse Rate 74 70 71 Respiratory Rate 16 17 16 Blood Pressure 143/67 H 150/67 H Pulse Oximetry 98 100 11/12/17 15:45 11/12/17 16:00 11/12/17 16:30 Temperature 99.4 F Pulse Rate 71 73 Respiratory Rate 11 L 21 21 Blood Pressure 145/64 H 160/65 H Pulse Oximetry 100 100 100 11/12/17 17:00 11/12/17 17:30 Temperature Pulse Rate 77 73 Respiratory Rate 23 20 Blood Pressure 136/62 126/59 L Pulse Oximetry 99 98 Intake & Output 11/11/17 11/12/17 11/12/17 18:59 06:59 18:59 Intake Total 626 / 626 2319 / 2319 500 / 500 Output Total 1600 / 1600 1150 / 1150 Balance -974 / -974 1169 / 1169 500 / 500 Weight 55 kg Intake: IV 0 / 0 1999 500 / 500 NS + KCl 20 mEq Inj 1,000 ML @ 0 / 0 1999 500 / 500 100 mls/hr IV.CONT .Q10H [facility] Rx #:[id number] Oral 0 / 0 Tube Feeding 546 / 546 259 / 259 Tube Irrigant 80 / 80 60 / 60 Output: Urine Amount (Catheter) 1600 / 1600 1150 / 1150 Indwelling Urethral Catheter 1600 / 1600 1150 / 1150 Other: # Bowel Movements 0 0 Narrative: GENERAL: NAD, HEAD: Normocephalic. NECK: Supple, trachea midline. No lymphadenopathy. EYES: No scleral icterus. No injection or drainage. CARDIOVASCULAR: Regular rate and rhythm RESPIRATORY: Breath sounds equal bilaterally. GASTROINTESTINAL: Abdomen soft, non-tender, nondistended. MUSCULOSKELETAL: No cyanosis, or edema. SKIN: Warm and dry. NEURO: mild stupor, opens eyes, appears to follow although inconsistently, + blink to threat, falls back asleep, ou 3-2mm, localizes with all 4 ext, no clonus, planter flexor - Urinary Catheter Management Indwelling Urethral Catheter Cath placed during this visit: yes Reason for continuing: Hourly intake/output Insertion date: 11/08/17 Insertion time: 20:10 Objective Laboratory Results - last 24 hr 11/11/17 11/11/17 11/12/17 06:12 19:10 00:29 WBC RBC Hgb Hct MCV MCH MCHC RDW Plt Count MPV Neut % (Auto) Lymph % (Auto) Baker % (Auto) Eos % (Auto) Baso % (Auto) Neut # (Auto) Lymph # (Auto) Baker # (Auto) Eos # (Auto) Baso # (Auto) WBC Differential Differential Comment Sodium Potassium Chloride Carbon Dioxide Anion Gap BUN Creatinine Estimated GFR POC Glucose 169 H 162 H Random Glucose Hemoglobin A1c 5.3 Lactic Acid Calcium Phosphorus Magnesium Total Bilirubin AST ALT Alkaline Phosphatase Ammonia Total Protein Albumin 11/12/17 11/12/17 11/12/17 00:40 00:40 00:40 WBC 9.6 RBC 3.58 L Hgb 11.0 L Hct 33.9 L MCV 94.6 MCH 30.8 MCHC 32.6 RDW 13.8 Plt Count 220 MPV 8.5 Neut % (Auto) 81.7 H Lymph % (Auto) 8.9 L Baker % (Auto) 7.8 Eos % (Auto) 0.9 Baso % (Auto) 0.7 Neut # (Auto) 7.8 H Lymph # (Auto) 0.8 L Baker # (Auto) 0.7 Eos # (Auto) 0.1 Baso # (Auto) 0.1 WBC Differential . Differential Comment Auto diff final Sodium 146 H Potassium 4.3 Chloride 116 H Carbon Dioxide 24.7 Anion Gap 5 BUN 12 Creatinine 0.57 Estimated GFR Greater than 89 POC Glucose Random Glucose 171 H Hemoglobin A1c Lactic Acid Calcium 8.1 L Phosphorus 4.0 D Magnesium 2.0 Total Bilirubin 0.3 AST 8 L ALT 13 Alkaline Phosphatase 57 Ammonia 35 H Total Protein 5.6 L Albumin 2.5 L 11/12/17 11/12/17 11/12/17 05:22 11:46 12:27 WBC RBC Hgb Hct MCV MCH MCHC RDW Plt Count MPV Neut % (Auto) Lymph % (Auto) Baker % (Auto) Eos % (Auto) Baso % (Auto) Neut # (Auto) Lymph # (Auto) Baker # (Auto) Eos # (Auto) Baso # (Auto) WBC Differential Differential Comment Sodium Potassium Chloride Carbon Dioxide Anion Gap BUN Creatinine Estimated GFR POC Glucose 167 H 183 H Random Glucose Hemoglobin A1c Lactic Acid 1.5 Calcium Phosphorus Magnesium Total Bilirubin AST ALT Alkaline Phosphatase Ammonia Total Protein Albumin Review/Management - Diagnosis (1) Acute encephalopathy Code(s): G93.40 - Encephalopathy, unspecified Status: Acute Current Visit: Yes (2) Depression Code(s): F32.9 - Major depressive disorder, single episode, unspecified Status : Acute Current Visit: Yes (3) Hypothyroid Code(s): E03.9 - Hypothyroidism, unspecified Status: Acute Current Visit: Yes (4) HLD (hyperlipidemia) Code(s): E78.5 - Hyperlipidemia, unspecified Status: Acute Current Visit: Yes - Review/Management Plan: Likely associated with secondary effects of benzodiazepines resulting in hypersomnolence encephalopathy Recommendations hypersomnolence likely 2/2 residual med effects f/u eeg csf contemplation in am due to slow recovery d/w CCM Follow serial exams (2) Depression Qualifiers: Depression Type: major depressive disorder
[2017-11-12] MEDS: Polyethylene Glycol 3350 17 GM Packet PO SCH (20:19)
[2017-11-13] MEDS: Oral Hygiene Kit OROPHARYNG SCH ×5 (02:13→16:18)
[2017-11-13] MEDS: Chlorhexidine Gluconate 2% 1 Pack (2 Cloths) TOPICAL SCH (04:54)
[2017-11-13] MEDS: Levothyroxine 50 MCG Tablet PO SCH (05:05)
[2017-11-13] MEDS: Insulin NovoLOG Aspart Correctional Sugar Inj SQ SCH ×3 (05:05→17:32)
[2017-11-13 05:59] LABS: Baso # (Auto) 0.1 th/mm3 (0.0-0.2); Baso % (Auto) 0.6 % (0.0-2.0); Eos # (Auto) 0.2 th/mm3 (0.0-0.4); Eos % (Auto) 2.4 % (0.0-4.0); Hematocrit 37.6 % (35.0-46.0); Hemoglobin 12.5 gm/dL (11.6-15.3); Lymph # (Auto) 0.8 th/mm3 (1.0-4.8); Lymph % (Auto) 9.6 % (9.0-44.0); Mean Corpuscular HGB Conc 33.2 % (32.0-36.0); Mean Corpuscular Hemoglobin 31.3 pg (27.0-34.0); Mean Corpuscular Volume 94.4 fL (80.0-100.0); Mean Platelet Volume 9.1 fL (7.0-11.0); Mono # (Auto) 0.8 th/mm3 (0.0-0.9); Mono % (Auto) 9.3 % (0.0-8.0); Neut # (Auto) 6.5 th/mm3 (1.8-7.7); Neut % (Auto) 78.1 % (16.0-70.0); Platelet Count 248 th/mm3 (150-450); Red Blood Count 3.98 mil/mm3 (4.00-5.30); Red Cell Distribution Width 13.7 % (11.6-17.2); White Blood Count 8.4 th/mm3 (4.0-11.0)
[2017-11-13 06:28] LABS: Anion Gap 8 meq/L (5-15); Blood Urea Nitrogen 12 mg/dL (7-18); Calcium 8.9 mg/dL (8.5-10.1); Carbon Dioxide 25.5 meq/L (21.0-32.0); Chloride 108 meq/L (98-107); Glomerular Filtration Rate Greater Than 89 mL/min (>89); Glucose,Random 161 mg/dL (74-106); Magnesium 2.2 mg/dL (1.5-2.5); Phosphorus 2.5 mg/dL (2.5-4.9); Potassium 4.4 meq/L (3.5-5.1); Sodium 141 meq/L (136-145)
[2017-11-13] MEDS: Hypromellose 0.3% Opth Gel 10 GM Bottle EACH EYE SCH ×2 (09:15→16:18)
[2017-11-13] MEDS: Chlorhexidine 0.12% Oral Kit 15 ML UDC OROPHARYNG SCH ×2 (09:16→20:50)
[2017-11-13] MEDS: Senna/Docusate Sodium 8.6/50 MG Tablet PO SCH ×2 (09:17→20:50)
[2017-11-13] MEDS: Polyethylene Glycol 3350 17 GM Packet PO SCH ×2 (09:17→20:50)
[2017-11-13] MEDS ORDERED: Mineral Oil Liq 30 ML UDC PO ONE (10:48)
[2017-11-13] MEDS ORDERED: Methylnaltrexone Inj 12 MG/0.6 ML Vial SQ ONE (10:49)
[2017-11-13] MEDS ORDERED: Magnesium Citrate Liq 300 ML Bottle PO ONE (10:49)
[2017-11-13] MEDS ORDERED: Sod Phosphate/Sod Biphosphate (Adult) Enema 133 ML Bottle RECTAL ONE (10:50)
--- NOTE | 2017-11-13 10:52 | P.PNCC ---
Subjective Subjective Remarks/Hospital Course: 72-year-old female with past medical history of bipolar depression, hyperlipidemia, mild coronary artery disease on left heart cath 2011, hypothyroidism, ongoing tobacco abuse who presented to [facility] emergency department with altered mental status after she was found down in her home near nearly empty Xanax bottle. Her neighbor reported that she frequently speaks of suicidal intent. GCS was 4 upon arrival. She was intubated for airway protection by Dr. Redman in the emergency department. Prior medication list also include lithium. 11/09: Afebrile. Currently on no sedation but minimally responsive. Positive gag and cough. Urine toxicology screen positive for benzodiazepines only. Clawson level 0.8. EKG shows sinus bradycardia with no QTC abnormalities 11/10: Afebrile. Placed on propofol drip overnight due to hypertension. Will add as needed labetalol but increase to every 1 hours and Nitropaste. Dexmedetomidine drip and attempt to wean if unable to without pharmacological assistance. EEG/MRI brain remains 11/11: Resting comfortably in bed. More arousable but does not follow commands. Eyes are open and moves all 4 extremities spontaneously but not purposefully. Noted MRI brain yesterday revealed chronic likely subdural hygromas right frontal/parietal. Small right occipital subarachnoid hemorrhage. Received brain CT this a.m. pending. Emesis overnight. Will check ABG and chest x-ray this morning. 11/12: Appears comfortable in bed. Eyes open to voice but not following commands. No bowel movement since admission. Tolerating tube feeds. SUBJECTIVE: 11/13: More interactive this a.m. Nods head very weakly and squeezes bilateral upper extremities to command. Wiggles toes very weakly. Will plan a lumbar puncture if able to obtain some consent from healthcare proxy. EEG under good going currently. No problem. Objective Vital Signs / I&O: Vital Signs 11/12/17 11:00 11/12/17 11:30 11/12/17 12:00 Temperature 99.4 F Pulse Rate 71 68 70 Respiratory Rate 11 L 17 Blood Pressure 144/65 H 145/66 H 143/104 H Pulse Oximetry 100 100 100 11/12/17 12:12 11/12/17 12:13 11/12/17 12:30 Temperature Pulse Rate 72 73 70 Respiratory Rate 18 18 16 Blood Pressure 153/66 H 155/69 H Pulse Oximetry 100 100 100 11/12/17 13:00 11/12/17 13:30 11/12/17 14:00 Temperature Pulse Rate 75 75 71 Respiratory Rate 19 15 14 Blood Pressure 144/67 H 141/64 H 149/69 H Pulse Oximetry 100 99 99 11/12/17 14:30 11/12/17 15:00 11/12/17 15:30 Temperature Pulse Rate 73 74 70 Respiratory Rate 19 16 17 Blood Pressure 156/67 H 143/67 H 150/67 H Pulse Oximetry 99 98 100 11/12/17 15:44 11/12/17 15:45 11/12/17 16:00 Temperature 99.4 F Pulse Rate 71 71 Respiratory Rate 16 11 L 21 Blood Pressure 145/64 H Pulse Oximetry 100 100 11/12/17 16:30 11/12/17 17:00 11/12/17 17:30 Temperature Pulse Rate 73 77 73 Respiratory Rate 21 23 20 Blood Pressure 160/65 H 136/62 126/59 L Pulse Oximetry 100 99 98 11/12/17 18:00 11/12/17 18:30 11/12/17 19:00 Temperature Pulse Rate 73 68 63 Respiratory Rate 20 20 18 Blood Pressure 131/60 127/59 L 118/55 L Pulse Oximetry 98 98 100 11/12/17 19:30 11/12/17 20:00 11/12/17 20:31 Temperature Pulse Rate 64 65 66 Respiratory Rate 18 18 25 H Blood Pressure 130/58 L 136/63 129/64 Pulse Oximetry 100 100 100 11/12/17 21:00 11/12/17 21:11 11/12/17 21:30 Temperature Pulse Rate 69 70 66 Respiratory Rate 23 22 20 Blood Pressure 148/67 H 152/70 H Pulse Oximetry 99 100 99 11/12/17 22:00 11/12/17 22:30 11/12/17 23:00 Temperature Pulse Rate 69 72 69 Respiratory Rate 20 20 22 Blood Pressure 154/68 H 143/66 H 137/63 Pulse Oximetry 100 100 100 11/12/17 23:30 11/13/17 00:00 11/13/17 00:05 Temperature Pulse Rate 72 73 73 Respiratory Rate 22 22 23 Blood Pressure 163/70 H 151/69 H Pulse Oximetry 100 99 100 11/13/17 00:30 11/13/17 01:00 11/13/17 01:30 Temperature Pulse Rate 72 73 72 Respiratory Rate 22 20 21 Blood Pressure 152/70 H 155/72 H 144/67 H Pulse Oximetry 100 99 99 11/13/17 02:00 11/13/17 02:30 11/13/17 03:00 Temperature Pulse Rate 69 74 72 Respiratory Rate 18 23 21 Blood Pressure 144/67 H 150/70 H 144/68 H Pulse Oximetry 100 98 99 11/13/17 03:30 11/13/17 04:00 11/13/17 04:25 Temperature Pulse Rate 73 72 72 Respiratory Rate 21 23 22 Blood Pressure 160/72 H 145/66 H Pulse Oximetry 99 99 100 11/13/17 04:30 11/13/17 05:00 11/13/17 05:30 Temperature 98.9 F Pulse Rate 71 79 83 Respiratory Rate 25 H 24 25 H Blood Pressure 157/68 H 137/63 148/67 H Pulse Oximetry 100 98 98 11/13/17 06:00 11/13/17 07:00 11/13/17 07:48 Temperature 99.7 F H Pulse Rate 83 79 Respiratory Rate 21 22 19 Blood Pressure 156/72 H 156/67 H Pulse Oximetry 99 100 99 11/13/17 08:00 11/13/17 09:00 Temperature 99.8 F H Pulse Rate 80 82 Respiratory Rate 19 Blood Pressure 146/66 H Pulse Oximetry 100 Intake & Output 11/12/17 11/13/17 11/13/17 18:59 06:59 18:59 Intake Total 885 / 885 275 / 275 256 / 256 Output Total 775 / 775 1600 / 1600 1000 / 1000 Balance 110 / 110 -1325 / -1325 -744 / -744 Weight 54 kg Intake: IV 500 / 500 NS + KCl 20 mEq Inj 1,000 ML @ 500 / 500 100 mls/hr IV.CONT .Q10H [facility] Rx #:[id number] Oral 0 / 0 Tube Feeding 385 / 385 175 / 175 156 / 156 Tube Irrigant 100 / 100 100 / 100 Output: Urine 775 / 775 1600 / 1600 Urine Amount (Catheter) 1000 / 1000 Indwelling Urethral Catheter 1000 / 1000 Other: Other Intake Source Saline Solution # Bowel Movements 0 Result Diagrams: 11/13/17 04:40 11/13/17 04:40 Imaging: Chest X-Ray 11/08/17 20:32 CONCLUSION: 1. ET tube tip 1 cm above the yocasta. 2. The lungs are clear. Head CT 11/08/17 20:33 CONCLUSION: 1. No acute findings in the brain. . Head MRI 11/10/17 00:00 CONCLUSION: 1. Subtle small area of T2 prolongation in the right occipital lobe of concern for a small area of subtle subarachnoid hemorrhage. 2. Mild chronic small vessel ischemic change. 3. 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 Head MRA 11/10/17 10:47 CONCLUSION: 1. Apparent dissection line in the distal internal carotid arteries at the skull base is artifactual, related to the timing bolus of contrast administration. 2. Otherwise, intracranial vessels are patent without significant stenosis or aneurysmal disease. Patient is left vertebral dominant. Neck MRA 11/10/17 10:47 CONCLUSION: 1. Unremarkable MRA neck. No aneurysm or dissection or significant carotid stenosis. Percent stenosis is calculated using the diameter of the stenotic region over the diameter of the normal distal internal carotid artery Head CT 11/11/17 00:00 CONCLUSION: 1. No acute abnormality is seen. 2. Widening of the cortical sulci and some expansion of the extra axial spaces over the frontal lobes likely related to atrophy. This appearance has progressed since the prior study from 2015. Abdomen X-Ray 11/12/17 00:00 CONCLUSION: 1. Unremarkable bowel gas pattern. 2. Nasogastric tube in place with the distal side port at the level of the gastroesophageal junction. Chest X-Ray 11/12/17 06:00 CONCLUSION: 1. Lungs remain clear. 2. Endotracheal tube has been backed out slightly and is appropriately positioned above the yocasta. 3. Interval placement of the endotracheal tube. Tip enters the stomach but the sidehole is in the expected location of the GE junction. Objective Remarks: GENERAL: 72-year-old female currently resting in bed orotracheally intubated SKIN: Warm and dry. We will will schedule hard over her left shoulder and left neal. HEAD: Atraumatic. Normocephalic. EYES: Pupils equal and round about 2 mm bilaterally and reactive. No scleral icterus. No injection or drainage. ENT: No nasal bleeding or discharge. Mucous membranes pink and moist. NECK: Trachea midline. No JVD. CARDIOVASCULAR: RRR. S1, S2 no S4. No murmur RESPIRATORY: No accessory muscle use. Few rhonchorous breath sounds appreciated anteriorly bilaterally. No wheezing GASTROINTESTINAL: Abdomen soft, non-tender, nondistended. Hepatic and splenic margins not palpable. MUSCULOSKELETAL: Extremities without without significant peripheral edema. Inverted toes bilaterally.. NEUROLOGICAL: Arousable on the ventilator and moves all 4 extremities to noxious stimulation but not following commands. Eyes do open to stimulation only. Positive gag, cough and corneal reflex. . Assessment and Plan - Assessment and Plan Plan: NEURO/PSYCH: Acute encephalopathy Suspected benzodiazepine overdose Suicidal ideation Diagnoses of bipolar disease I Small right occipital subarachnoid hemorrhage Right subdural hygroma frontal/parietal Patient is currently on no sedation. Goal of RASS 0 while intubated Daily sedation vacation CT brain 11/08 revealed no acute intracranial findings MRI brain revealed right subdural hygroma involving the frontal and parietal regions. Small right occipital subarachnoid hemorrhage. MRA brain/neck revealed no acute findings EEG revealed mild to moderate encephalopathy. Sleep state. No epileptiform activity. Repeat brain CT 11/12 - widening of the cortical sulci and some expansion of the extra axial spaces over the frontal lobes likely related to atrophy Neurosurgery recommends follow-up CT 2-3 weeks Number neurology consult Dr. Velasquez. Plan for lumbar puncture today Currently holding lithium carbonate 300 mg by mouth twice daily/home medication. Level was 0.8. Resume when clinically indicated. Recheck in a.m. 11/11. Previously on alprazolam 0.25 mg every 6 hours as needed. This has been held. Previously on sertraline 25 mg p.o. daily. This has been held. Previously on pregabalin 50 mg p.o. twice daily. This has been held. Holding aspirin 81 mg daily. Resume clinically indicated Psychiatric evaluation for Feroz duran once extubated and able to interact RESP: Acute respiratory failure secondary to likely overdose possibly intentional Ongoing tobaccoism PRVC 16/450/04/26/39 CPAP 03/26 at 40% Ventilator bundle Albuterol/ipratropium aerosols every 4 hours with albuterol aerosols every 2 hours as needed for dyspnea CPAP trial/spontaneous breathing trials when clinically indicated Tobacco cessation self evaluation pamphlet will be provided when clinically indicated Chest x-ray 09/13 revealed no acute cardia pulmonary findings CV: Coronary artery disease Hyperlipidemia History of SVT Currently on 0.9% NaCl with 20 mEq of potassium chloride at 100 cc an hour. Discontinue his tube feeds currently at goal Left heart catheterization 2011 revealed LAD 50%. RCA PL 40%. EF 60%. Lexiscan 2015 within normal limits. Currently holding lovastatin 10 mg daily/home medication. Resume when clinically indicated. QTC 443. Normal QRS. Currently off nicardipine drip GI: Hypoalbuminemia Constipation Continue tube feedings with vital 1.5 goal 45 cc an hour Lansoprazole for GI prophylax Docusate sodium/senna 1 tablet twice daily for bowel regimen. Added polythene glycol 17 g twice daily, lactulose 30 cc twice daily. Mineral oil 15 mL 1 today. Mineral oil enema 1 today. Methylnaltrexone 12 mg subcu 1 today. KUB revealed nonspecific bowel gas pattern. Tolerating tube feeds. Disimpaction ordered FEN/RENAL: Urinary retention Straight cath every 8 hours Monitor intake and output. Monitor electrolytes. Replace electrolytes as indicated. ID: Monitor for signs and symptoms of infection. HEME: Monitor CBC. Monitor trends. No indication for transfusion of blood products at this time ENDO: Hypothyroidism Continue levothyroxine 50 ramon grams daily. TSH was 1.2 Monitor bedside glucose [id number] with aspart sliding scale insulin coverage/low regimen. PROPH: SCDs/enoxaparin 40 mg subcu daily for DVT prophylaxis held for the next 48 hours status post subarachnoid as above. Resume when okay with neurosurgery. Pantoprazole 40 mg IV for stress ulcer prophylaxis ACCESS: Peripheral IV providing adequate access at this time. Stepdaughter notified yesterday 11/11. Currently unavailable today via her office phone number.. Level 2 followup
[2017-11-13 11:21] LABS: Hematocrit 39.3 % (35.0-46.0); Mean Corpuscular Hemoglobin 31.3 pg (27.0-34.0); Mean Corpuscular Volume 94.5 fL (80.0-100.0); Red Blood Count 4.16 mil/mm3 (4.00-5.30); White Blood Count 8.8 th/mm3 (4.0-11.0)
[2017-11-13 11:22] LABS: Mean Corpuscular HGB Conc 33.1 % (32.0-36.0); Mean Platelet Volume 8.6 fL (7.0-11.0); Platelet Count 261 th/mm3 (150-450); Red Cell Distribution Width 13.7 % (11.6-17.2)
[2017-11-13 11:39] LABS: Activated Partial Thrombo Time 25.9 sec (24.3-30.1)
[2017-11-13 11:40] LABS: Prothrombin Time 10.5 sec (9.8-11.6)
[2017-11-13] MEDS: Metoprolol Inj 5 MG/5 ML Vial IV.PUSH SCH ×2 (17:26→20:50)
--- NOTE | 2017-11-13 17:45 | ECG ---
Date Performed: 11/13/2017 Time Performed: 16:05:27 PTAGE: 72 years EKG: SINUS TACHYCARDIA WITH OCCASIONAL VENTRICULAR PREMATURE COMPLEXES POSSIBLE LEFT ATRIAL ENLA RGEMENT LEFT ANTERIOR FASCICULAR BLOCK POSSIBLE ANTERIOR MYOCARDIAL INFARCTION , PROBABLY OLD ABNORMA L ECG Compared to prior electrocardiogram, rate has increased and Premature ventricular contractions are now present . PREVIOUS TRACING : 11/09/2017 06.15 DOCTOR: Mick Wolfe Interpretating Date/Time 11/13/2017 17:43:46
[2017-11-14] MEDS: Hypromellose 0.3% Opth Gel 10 GM Bottle EACH EYE SCH ×3 (00:42→17:05)
[2017-11-14] MEDS: Insulin NovoLOG Aspart Correctional Sugar Inj SQ SCH ×4 (00:42→17:10)
[2017-11-14] MEDS: Oral Hygiene Kit OROPHARYNG SCH ×4 (00:42→17:05)
[2017-11-14] MEDS: Metoprolol Inj 5 MG/5 ML Vial IV.PUSH SCH ×5 (04:00→22:00)
[2017-11-14] MEDS: Levothyroxine 50 MCG Tablet PO SCH (06:16)
[2017-11-14 06:43] LABS: Baso # (Auto) 0.1 th/mm3 (0.0-0.2); Baso % (Auto) 0.4 % (0.0-2.0); Hematocrit 39.5 % (35.0-46.0); Hemoglobin 12.6 gm/dL (11.6-15.3); Lymph # (Auto) 0.6 th/mm3 (1.0-4.8); Lymph % (Auto) 3.7 % (9.0-44.0); Mean Corpuscular Hemoglobin 30.1 pg (27.0-34.0); Mean Corpuscular Volume 93.9 fL (80.0-100.0); Mean Platelet Volume 8.8 fL (7.0-11.0); Mono % (Auto) 6.6 % (0.0-8.0); Neut # (Auto) 13.3 th/mm3 (1.8-7.7); Neut % (Auto) 89.3 % (16.0-70.0); Platelet Count 295 th/mm3 (150-450); Red Blood Count 4.21 mil/mm3 (4.00-5.30); Red Cell Distribution Width 13.5 % (11.6-17.2); White Blood Count 14.9 th/mm3 (4.0-11.0)
[2017-11-14 07:14] LABS: Anion Gap 10 meq/L (5-15); Blood Urea Nitrogen 24 mg/dL (7-18); Calcium 8.8 mg/dL (8.5-10.1); Carbon Dioxide 27.2 meq/L (21.0-32.0); Chloride 103 meq/L (98-107); Glomerular Filtration Rate 79 mL/min (>89); Glucose,Random 270 mg/dL (74-106); Magnesium 2.7 mg/dL (1.5-2.5); Phosphorus 2.2 mg/dL (2.5-4.9); Potassium 4.6 meq/L (3.5-5.1); Sodium 140 meq/L (136-145)
--- NOTE | 2017-11-14 08:32 | MG ---
cc: Stanford Figueroa MD INDICATIONS: A 72-year-old woman, Xanax overdose, depression. MEDICATIONS: Synthroid. DESCRIPTION: An 8 Hz, 60 microvolt posterior rhythm is seen. The recording overall is synchronous and symmetric. Some bifrontal muscle artifact is at times noted. Some bitemporal theta slowing is seen. Photic stimulation is performed without significant posterior driving. There are some sharps seen over the right posterior temporal head region at EPOCH 112. Phase reversing over the T3 electrode. There is a small sharply contoured and sharp alpha wave frequency. IMPRESSION: Some left temporal sharps noted, one run lasting approximately 20 seconds. This appears it could be a seizure focus and left temporal abnormality should be ruled out. Stanford Figueroa MD DJM/DL , 07:42 AM , 07:46 AM
[2017-11-14] MEDS: Senna/Docusate Sodium 8.6/50 MG Tablet PO SCH ×2 (09:20→20:02)
[2017-11-14] MEDS: Polyethylene Glycol 3350 17 GM Packet PO SCH ×2 (09:22→20:02)
[2017-11-14] MEDS: Chlorhexidine 0.12% Oral Kit 15 ML UDC OROPHARYNG SCH ×2 (09:24→20:01)
--- NOTE | 2017-11-14 09:50 | P.PNNEU ---
Subjective Subjective Comments: No acute events reported Active Medications: Active Medications Acetaminophen (Tylenol Liq) 650 mg PO Q6H PRN PRN Reason: FEVER Last Admin: 11/12/17 16:37 Dose: 650 mg Al Hydroxide/Mg Hydroxide (Milk Of Magnesia Liq) 30 ml PO Q12H PRN PRN Reason: Mild Constipation Albuterol (Albuterol Neb (Prn)) 2.5 mg NEB Q2HR NEB PRN PRN Reason: SHORTNESS OF BREATH/WHEEZING Albuterol (Duoneb Neb ([place])) 1 ampul NEB Q4HR NEB HONORIO Last Admin: 11/14/17 07:53 Dose: 1 ampul Artificial Tears (Genteal Severe Dry Eye Relief 0.3% Opth Gel) 1 drops EACH EYE Q8H [facility] Last Admin: 11/14/17 09:20 Dose: 1 drops Bisacodyl (Dulcolax Supp) 10 mg RECTAL DAILY PRN PRN Reason: SEVERE CONSITIPATION Chlorhexidine Gluconate (Peridex 0.12% Oral Kit) 15 ml OROPHARYNG BID@0800, 2000 [facility] Last Admin: 11/14/17 09:24 Dose: 15 ml Dextrose (D50w Vial) 50 ml IV.PUSH UNSCH PRN PRN Reason: PER HYPOGLYCEMIA PROTOCOL Glucagon (Glucagon Inj) 1 mg OTHER PRN PRN PRN Reason: for Hypoglycemia Protocol Magnesium Sulfate Inj 4 gm/ (Sodium Chloride) 100 mls @ 50 mls/hr IV.SIG UNSCH PRN PRN Reason: For Magnesium 0.9 - 1.1 mg/dL Magnesium Sulfate Inj 2 gm/ (Sodium Chloride) 100 mls @ 50 mls/hr IV.SIG UNSCH PRN PRN Reason: For Magnesium 1.2 - 1.6 mg/dL Potassium Chloride (Kcl 20 Meq Premix Inj) 20 meq in 100 mls @ 50 mls/hr IV.SIG Q2H PRN PRN Reason: For Potassium 3.3 - 3.5 mEq/L Potassium Chloride (Kcl 40 Meq Premix Inj) 40 meq in 100 mls @ 25 mls/hr IV.SIG UNSCH PRN PRN Reason: For Potassium 3.3 - 3.5 mEq/L Potassium Chloride (Kcl 20 Meq Premix Inj) 20 meq in 100 mls @ 50 mls/hr IV.SIG Q2H PRN PRN Reason: For Potassium 2.8 - 3.2 mEq/L Potassium Phosphate 30 mmol/ (Sodium Chloride) 260 mls @ 42 mls/hr IV.SIG UNSCH PRN PRN Reason: SEE LABEL COMMENTS Last Admin: 11/11/17 17:00 Dose: 42 mls/hr Sodium Phosphate 30 mmol/ (Sodium Chloride) 260 mls @ 42 mls/hr IV.SIG UNSCH PRN PRN Reason: For Phosphorus < 2.5 mg/dL Potassium Chloride (Kcl 40 Meq Premix Inj) 40 meq in 100 mls @ 25 mls/hr IV.SIG Q2H PRN PRN Reason: For Potassium 2.8 - 3.2 mEq/L Dexmedetomidine HCl 800 mcg/ (Sodium Chloride) 50 mls @ 0.66 mls/hr IV.CONT TITRATE PRN; Protocol PRN Reason: See Protocol Nicardipine HCl 25 mg/ Sodium (Chloride) 250 mls @ 10 mls/hr IV.CONT TITRATE PRN; Protocol PRN Reason: Per Protocol Last Admin: 11/11/17 00:13 Dose: 2 mg/hr, 20 mls/hr Insulin Aspart (Novolog Insulin Correctional Sugar Inj) 0 unit SQ Q6HR [facility]; Protocol Last Admin: 11/14/17 06:16 Dose: Not Given Labetalol HCl (Trandate Inj) 10 mg IV.PUSH Q1H PRN PRN Reason: BLOOD PRESSURE MANAGEMENT Lactulose (Lactulose Liq) 30 ml PO BID [facility] Last Admin: 11/14/17 09:20 Dose: 30 ml Lactulose (Lactulose Liq) 30 ml PO DAILY PRN PRN Reason: SEVERE CONSITIPATION Lansoprazole (Prevacid Solutab) 30 mg NG/OG DAILY [facility] Last Admin: 11/13/17 09:17 Dose: 30 mg Levothyroxine Sodium (Synthroid) 50 mcg PO DAILY@0600 [facility] Last Admin: 11/14/17 06:16 Dose: 50 mcg Magnesium Oxide (Mag-Ox) 800 mg PO UNSCH PRN PRN Reason: For Magnesium 1.2 - 1.6 mg/dL Metoprolol Tartrate (Lopressor Inj) 2.5 mg IV.PUSH Q6H [facility] Last Admin: 11/14/17 09:21 Dose: 2.5 mg Polyethylene Glycol (Miralax) 17 gm PO BID [facility] Last Admin: 11/14/17 09:22 Dose: 17 gm Potassium Bicarb/Potassium Chloride (K-Lyte Cl Eff) 50 meq PO UNSCH PRN PRN Reason: For Potassium 3.3 - 3.5 mEq/L Potassium Phosphate (K-Phos Original) 2,000 mg PO Q4H PRN PRN Reason: Phosphorus Less Than 2.5 mg/dL Potassium Phosphate (K-Phos Original) 2,000 mg PO UNSCH PRN PRN Reason: SEE LABEL COMMENTS Senna/Docusate Sodium (Steph-Colace) 1 tab PO BID [facility] Last Admin: 11/14/17 09:20 Dose: 1 tab Sennosides (Senokot) 17.2 mg PO Q12H PRN PRN Reason: Moderate Constipation Sodium Chloride (Ns Flush) 2 ml IV.FLUSH BID [facility] Last Admin: 11/14/17 09:21 Dose: 2 ml Sodium Chloride (Ns Flush) 2 ml IV.FLUSH PRN PRN PRN Reason: FLUSH AFTER USING IV ACCESS Thiamine HCl (Vitamin B1) 100 mg PO BID [facility] Last Admin: 11/14/17 09:20 Dose: 100 mg Allergies/Adverse Reactions: Allergies Allergy/AdvReac Type Severity Reaction Status Date / Time lamotrigine Allergy Unknown Rash Unverified 12/04/16 14:42 Review of Systems All other systems reviewed negative except as stated in HPI, unobtainable due to endotracheal tube Physical Exam Vital signs: Vital Signs 11/13/17 10:00 11/13/17 11:00 11/13/17 12:00 Temperature 99.2 F Pulse Rate 76 77 81 Respiratory Rate 25 H 23 20 Blood Pressure 136/63 130/65 126/58 L Pulse Oximetry 98 99 98 11/13/17 13:00 11/13/17 13:20 11/13/17 14:00 Temperature 98.9 F Pulse Rate 83 91 H Respiratory Rate 26 H 32 H Blood Pressure 132/63 135/72 Pulse Oximetry 98 100 96 11/13/17 15:00 11/13/17 15:30 11/13/17 15:39 Temperature Pulse Rate 91 H 98 H Respiratory Rate 31 H 44 H 30 H Blood Pressure 143/71 H 179/122 H Pulse Oximetry 98 100 100 11/13/17 15:40 11/13/17 15:45 11/13/17 16:00 Temperature 98.9 F Pulse Rate 98 H 100 H 99 H Respiratory Rate 35 H 25 H 23 Blood Pressure 149/56 H 110/67 Pulse Oximetry 98 96 11/13/17 16:30 11/13/17 17:00 11/13/17 17:29 Temperature Pulse Rate 94 H 100 H 93 H Respiratory Rate 21 31 H 21 Blood Pressure 107/61 109/60 128/66 Pulse Oximetry 96 93 L 95 11/13/17 17:30 11/13/17 18:00 11/13/17 18:31 Temperature 98.8 F Pulse Rate 93 H 79 82 Respiratory Rate 23 27 H 28 H Blood Pressure 124/62 123/58 L 153/66 H Pulse Oximetry 96 95 97 11/13/17 19:00 11/13/17 19:30 11/13/17 20:00 Temperature 98.4 F Pulse Rate 85 83 84 Respiratory Rate 26 H 28 H 25 H Blood Pressure 135/64 126/58 L 144/65 H Pulse Oximetry 94 L 96 96 11/13/17 20:10 11/13/17 20:30 11/13/17 21:00 Temperature Pulse Rate 88 90 92 H Respiratory Rate 21 28 H 23 Blood Pressure 129/60 138/63 Pulse Oximetry 96 94 L 97 11/13/17 21:30 11/13/17 22:00 11/13/17 22:30 Temperature Pulse Rate 94 H 93 H 97 H Respiratory Rate 24 35 H 28 H Blood Pressure 143/64 H 143/66 H 144/65 H Pulse Oximetry 98 97 98 11/13/17 23:00 11/13/17 23:05 11/13/17 23:23 Temperature Pulse Rate 101 H 98 H Respiratory Rate 24 22 23 Blood Pressure 155/71 H Pulse Oximetry 98 97 11/13/17 23:30 11/14/17 00:00 11/14/17 00:21 Temperature 99 F Pulse Rate 99 H 97 H 101 H Respiratory Rate 23 28 H 27 H Blood Pressure 144/64 H 123/58 L Pulse Oximetry 97 98 99 11/14/17 00:30 11/14/17 01:00 11/14/17 01:01 Temperature Pulse Rate 101 H 101 H 100 H Respiratory Rate 23 46 H 36 H Blood Pressure 125/59 L 126/60 Pulse Oximetry 98 98 99 11/14/17 01:30 11/14/17 02:00 11/14/17 02:30 Temperature Pulse Rate 92 H 91 H 91 H Respiratory Rate 24 25 H 26 H Blood Pressure 119/58 L 123/58 L 116/56 L Pulse Oximetry 97 97 98 11/14/17 03:00 11/14/17 03:23 11/14/17 03:30 Temperature Pulse Rate 90 86 95 H Respiratory Rate 21 18 39 H Blood Pressure 120/57 L 136/66 Pulse Oximetry 98 98 96 11/14/17 04:00 11/14/17 04:30 11/14/17 05:00 Temperature Pulse Rate 96 H 90 84 Respiratory Rate 24 25 H 20 Blood Pressure 132/62 118/67 141/65 H Pulse Oximetry 97 97 97 11/14/17 05:30 11/14/17 06:00 11/14/17 07:58 Temperature Pulse Rate 83 85 77 Respiratory Rate 19 20 20 Blood Pressure 143/64 H 133/59 L Pulse Oximetry 98 97 100 Intake & Output 11/13/17 11/14/17 11/14/17 18:59 06:59 18:59 Intake Total 762 / 762 637 / 637 Output Total 1974 3 / 3 Balance -1213 / -1213 634 / 634 Weight 52.5 kg Intake: Oral 0 / 0 0 / 0 Tube Feeding 512 / 512 537 / 537 Tube Irrigant 250 / 250 Water Bolus Amount 100 / 100 Output: Stool 0 / 0 Urine/Stool Mix 3 / 3 Urine Amount (Catheter) 1974 Indwelling Urethral Catheter 1974 Other: Other Intake Source Saline Solution # Voids 2 Date of Last Bowel Movement 11/13/17 # Bowel Movements 0 Narrative: GENERAL: NAD, HEAD: Normocephalic. NECK: Supple, trachea midline. No lymphadenopathy. EYES: No scleral icterus. No injection or drainage. CARDIOVASCULAR: Regular rate and rhythm RESPIRATORY: Breath sounds equal bilaterally. GASTROINTESTINAL: Abdomen soft, non-tender, nondistended. MUSCULOSKELETAL: No cyanosis, or edema. SKIN: Warm and dry. NEURO: very alert, follows, with all 4 ext. shows 2 fingers, wiggles toes and closes eyes consistently, ou 3-2mm, localizes with all 4 ext, no clonus, planter flexor - Constitutional no acute distress - Urinary Catheter Management Indwelling Urethral Catheter Cath placed during this visit: yes, but has since been removed by the nurse Reason for continuing: Not indwelling catheter Insertion date: 11/08/17 Insertion time: 20:10 Removal date: 11/12/17 Removal time: 06:00 Objective Laboratory Results - last 24 hr 11/13/17 11/13/17 11/13/17 10:55 10:55 12:13 WBC 8.8 RBC 4.16 Hgb 13.0 Hct 39.3 MCV 94.5 MCH 31.3 MCHC 33.1 RDW 13.7 Plt Count 261 MPV 8.6 Neut % (Auto) Lymph % (Auto) [place] % (Auto) Eos % (Auto) Baso % (Auto) Neut # (Auto) Lymph # (Auto) [place] # (Auto) Eos # (Auto) Baso # (Auto) WBC Differential Differential Comment PT 10.5 INR 1.0 APTT 25.9 Sodium Potassium Chloride Carbon Dioxide Anion Gap BUN Creatinine Estimated GFR POC Glucose 153 H Random Glucose Calcium Phosphorus Magnesium Ammonia Total Creatine Kinase Troponin I 11/13/17 11/13/17 11/13/17 16:44 16:44 17:31 WBC RBC Hgb Hct MCV MCH MCHC RDW Plt Count MPV Neut % (Auto) Lymph % (Auto) [place] % (Auto) Eos % (Auto) Baso % (Auto) Neut # (Auto) Lymph # (Auto) [place] # (Auto) Eos # (Auto) Baso # (Auto) WBC Differential Differential Comment PT INR APTT Sodium Potassium Chloride Carbon Dioxide Anion Gap BUN Creatinine Estimated GFR POC Glucose 153 H Random Glucose Calcium Phosphorus Magnesium Ammonia Total Creatine Kinase 36 Troponin I Less than 0.02 L 11/14/17 11/14/17 11/14/17 00:36 06:02 06:23 WBC 14.9 H D RBC 4.21 Hgb 12.6 Hct 39.5 MCV 93.9 MCH 30.1 MCHC 32.0 RDW 13.5 Plt Count 295 MPV 8.8 Neut % (Auto) 89.3 H Lymph % (Auto) 3.7 L [place] % (Auto) 6.6 Eos % (Auto) 0.0 Baso % (Auto) 0.4 Neut # (Auto) 13.3 H Lymph # (Auto) 0.6 L [place] # (Auto) 1.0 H Eos # (Auto) 0.0 Baso # (Auto) 0.1 WBC Differential . Differential Comment Auto diff final PT INR APTT Sodium Potassium Chloride Carbon Dioxide Anion Gap BUN Creatinine Estimated GFR POC Glucose 285 H Random Glucose Calcium Phosphorus Magnesium Ammonia 31 Total Creatine Kinase Troponin I 11/14/17 06:23 WBC RBC Hgb Hct MCV MCH MCHC RDW Plt Count MPV Neut % (Auto) Lymph % (Auto) [place] % (Auto) Eos % (Auto) Baso % (Auto) Neut # (Auto) Lymph # (Auto) [place] # (Auto) Eos # (Auto) Baso # (Auto) WBC Differential Differential Comment PT INR APTT Sodium 140 Potassium 4.6 Chloride 103 Carbon Dioxide 27.2 Anion Gap 10 BUN 24 H Creatinine 0.72 Estimated GFR 79 L POC Glucose Random Glucose 270 H D Calcium 8.8 Phosphorus 2.2 L Magnesium 2.7 H Ammonia Total Creatine Kinase Troponin I Less than 0.02 L Review/Management - Diagnosis (1) Acute encephalopathy Code(s): G93.40 - Encephalopathy, unspecified Status: Acute Current Visit: Yes (2) Depression Code(s): F32.9 - Major depressive disorder, single episode, unspecified Status : Acute Current Visit: Yes (3) Hypothyroid Code(s): E03.9 - Hypothyroidism, unspecified Status: Acute Current Visit: Yes (4) HLD (hyperlipidemia) Code(s): E78.5 - Hyperlipidemia, unspecified Status: Acute Current Visit: Yes - Review/Management Plan: Likely associated with secondary effects of benzodiazepines resulting in hypersomnolence encephalopathy Recommendations hypersomnolence likely 2/2 residual med effects-resolved eeg- left temp sharps- ? will add keppra for now much more awake, lucid and following cpap trials/extubation hold off on lp (2) Depression Qualifiers: Depression Type: major depressive disorder
--- NOTE | 2017-11-14 16:23 | P.PNCC ---
Subjective Subjective Remarks/Hospital Course: 72-year-old female with past medical history of bipolar depression, hyperlipidemia, mild coronary artery disease on left heart cath 2011, hypothyroidism, ongoing tobacco abuse who presented to [facility] emergency department with altered mental status after she was found down in her home near nearly empty Xanax bottle. Her neighbor reported that she frequently speaks of suicidal intent. GCS was 4 upon arrival. She was intubated for airway protection by Dr. Redman in the emergency department. Prior medication list also include lithium. 11/09: Afebrile. Currently on no sedation but minimally responsive. Positive gag and cough. Urine toxicology screen positive for benzodiazepines only. [place] level 0.8. EKG shows sinus bradycardia with no QTC abnormalities 11/10: Afebrile. Placed on propofol drip overnight due to hypertension. Will add as needed labetalol but increase to every 1 hours and Nitropaste. Dexmedetomidine drip and attempt to wean if unable to without pharmacological assistance. EEG/MRI brain remains 11/11: Resting comfortably in bed. More arousable but does not follow commands. Eyes are open and moves all 4 extremities spontaneously but not purposefully. Noted MRI brain yesterday revealed chronic likely subdural hygromas right frontal/parietal. Small right occipital subarachnoid hemorrhage. Received brain CT this a.m. pending. Emesis overnight. Will check ABG and chest x-ray this morning. 11/12: Appears comfortable in bed. Eyes open to voice but not following commands. No bowel movement since admission. Tolerating tube feeds. SUBJECTIVE: 11/13: More interactive this a.m. Nods head very weakly and squeezes bilateral upper extremities to command. Wiggles toes very weakly. Will plan a lumbar puncture if able to obtain some consent from healthcare proxy. EEG under good going currently. No problem. 11/14: continues to be more awake, but still somewhat overall somnolent. also with significant secretions and unable to cough them up adequately. failed SBT today for tachypnea and copious secretions. Objective Vital Signs / I&O: Vital Signs 11/13/17 16:30 11/13/17 17:00 11/13/17 17:29 Temperature Pulse Rate 94 H 100 H 93 H Respiratory Rate 21 31 H 21 Blood Pressure 107/61 109/60 128/66 Pulse Oximetry 96 93 L 95 11/13/17 17:30 11/13/17 18:00 11/13/17 18:31 Temperature 37.1 C Pulse Rate 93 H 79 82 Respiratory Rate 23 27 H 28 H Blood Pressure 124/62 123/58 L 153/66 H Pulse Oximetry 96 95 97 11/13/17 19:00 11/13/17 19:30 11/13/17 20:00 Temperature 36.9 C Pulse Rate 85 83 84 Respiratory Rate 26 H 28 H 25 H Blood Pressure 135/64 126/58 L 144/65 H Pulse Oximetry 94 L 96 96 11/13/17 20:10 11/13/17 20:30 11/13/17 21:00 Temperature Pulse Rate 88 90 92 H Respiratory Rate 21 28 H 23 Blood Pressure 129/60 138/63 Pulse Oximetry 96 94 L 97 11/13/17 21:30 11/13/17 22:00 11/13/17 22:30 Temperature Pulse Rate 94 H 93 H 97 H Respiratory Rate 24 35 H 28 H Blood Pressure 143/64 H 143/66 H 144/65 H Pulse Oximetry 98 97 98 11/13/17 23:00 11/13/17 23:05 11/13/17 23:23 Temperature Pulse Rate 101 H 98 H Respiratory Rate 24 22 23 Blood Pressure 155/71 H Pulse Oximetry 98 97 11/13/17 23:30 11/14/17 00:00 11/14/17 00:21 Temperature 37.2 C Pulse Rate 99 H 97 H 101 H Respiratory Rate 23 28 H 27 H Blood Pressure 144/64 H 123/58 L Pulse Oximetry 97 98 99 11/14/17 00:30 11/14/17 01:00 11/14/17 01:01 Temperature Pulse Rate 101 H 101 H 100 H Respiratory Rate 23 46 H 36 H Blood Pressure 125/59 L 126/60 Pulse Oximetry 98 98 99 11/14/17 01:30 11/14/17 02:00 11/14/17 02:30 Temperature Pulse Rate 92 H 91 H 91 H Respiratory Rate 24 25 H 26 H Blood Pressure 119/58 L 123/58 L 116/56 L Pulse Oximetry 97 97 98 11/14/17 03:00 11/14/17 03:23 11/14/17 03:30 Temperature Pulse Rate 90 86 95 H Respiratory Rate 21 18 39 H Blood Pressure 120/57 L 136/66 Pulse Oximetry 98 98 96 11/14/17 04:00 11/14/17 04:30 11/14/17 05:00 Temperature Pulse Rate 96 H 90 84 Respiratory Rate 24 25 H 20 Blood Pressure 132/62 118/67 141/65 H Pulse Oximetry 97 97 97 11/14/17 05:30 11/14/17 06:00 11/14/17 07:00 Temperature 36.6 C Pulse Rate 83 85 84 Respiratory Rate 19 20 19 Blood Pressure 143/64 H 133/59 L 134/65 Pulse Oximetry 98 97 97 11/14/17 07:58 11/14/17 08:00 11/14/17 09:00 Temperature Pulse Rate 77 79 86 Respiratory Rate 20 23 24 Blood Pressure 129/60 139/66 Pulse Oximetry 100 100 97 11/14/17 10:00 11/14/17 11:00 11/14/17 11:40 Temperature 37.2 C Pulse Rate 73 76 73 Respiratory Rate 22 23 23 Blood Pressure 127/58 L 134/79 Pulse Oximetry 99 98 11/14/17 12:00 11/14/17 13:00 11/14/17 13:36 Temperature 37.3 C Pulse Rate 78 86 Respiratory Rate 24 24 22 Blood Pressure 135/63 108/65 Pulse Oximetry 96 97 Intake & Output 11/13/17 11/14/17 11/14/17 18:59 06:59 18:59 Intake Total 762 / 762 637 / 637 495 / 495 Output Total 1974 750 / 750 Balance -1213 / -1213 634 / 634 -255 / -255 Weight 52.5 kg Intake: Oral 0 / 0 0 / 0 0 / 0 Tube Feeding 512 / 512 537 / 537 345 / 345 Tube Irrigant 250 / 250 50 / 50 Water Bolus Amount 100 / 100 100 / 100 Output: Stool 0 / 0 0 / 0 Urine/Stool Mix Urine Amount (Catheter) 1974 750 / 750 Indwelling Urethral Catheter 1974 750 / 750 Other: Other Intake Source Saline Solution Saline Solution # Voids 2 Date of Last Bowel Movement 11/13/17 11/14/17 # Bowel Movements 0 2 Result Diagrams: 11/14/17 06:23 11/14/17 06:23 Objective Remarks: GENERAL: 72-year-old female currently resting in bed orotracheally intubated SKIN: Warm and dry. We will will schedule hard over her left shoulder and left neal. HEAD: Atraumatic. Normocephalic. EYES: Pupils equal and round about 2 mm bilaterally and reactive. No scleral icterus. No injection or drainage. ENT: No nasal bleeding or discharge. Mucous membranes pink and moist. NECK: Trachea midline. No JVD. CARDIOVASCULAR: RRR. S1, S2 no S4. No murmur RESPIRATORY: No accessory muscle use. Few rhonchorous breath sounds appreciated anteriorly bilaterally. No wheezing. thick copious yellow secretions. GASTROINTESTINAL: Abdomen soft, non-tender, nondistended. MUSCULOSKELETAL: Extremities without without significant peripheral edema. Inverted toes bilaterally.. NEUROLOGICAL: Arousable on the ventilator and moves all 4 extremities to noxious stimulation but not following commands. Eyes do open to stimulation only. Positive gag, cough and corneal reflex. . Assessment and Plan - Assessment and Plan Plan: NEURO/PSYCH: Acute encephalopathy Suspected benzodiazepine overdose Suicidal ideation Diagnoses of bipolar disease I Small right occipital subarachnoid hemorrhage Right subdural hygroma frontal/parietal Patient is currently on no sedation. Goal of RASS 0 while intubated Daily sedation vacation CT brain 11/08 revealed no acute intracranial findings MRI brain revealed right subdural hygroma involving the frontal and parietal regions. Small right occipital subarachnoid hemorrhage. MRA brain/neck revealed no acute findings EEG revealed mild to moderate encephalopathy. Sleep state. No epileptiform activity. Repeat brain CT 11/12 - widening of the cortical sulci and some expansion of the extra axial spaces over the frontal lobes likely related to atrophy Neurosurgery recommends follow-up CT 2-3 weeks Number neurology consult Dr. Baxter. LP d/c'd given improving mentation. not needed diagnostically per Dr. Baxter. Currently holding lithium carbonate 300 mg by mouth twice daily/home medication. Level was 0.8. Resume when clinically indicated. Recheck in a.m. 11/11. Previously on alprazolam 0.25 mg every 6 hours as needed. This has been held. Previously on sertraline 25 mg p.o. daily. This has been held. Previously on pregabalin 50 mg p.o. twice daily. This has been held. Holding aspirin 81 mg daily. Resume clinically indicated Psychiatric evaluation for Redman act once extubated and able to interact RESP: Acute hypoxic and hypercarbic respiratory failure secondary to likely overdose possibly intentional Ongoing tobaccoism failing cpap trials today. continue to attempt daily. Ventilator bundle Albuterol/ipratropium aerosols every 4 hours with albuterol aerosols every 2 hours as needed for dyspnea Tobacco cessation self evaluation pamphlet will be provided when clinically indicated Chest x-ray 09/13 revealed no acute cardia pulmonary findings repeat CXR today and in AM. CV: Coronary artery disease Hyperlipidemia History of SVT TF at goal. Left heart catheterization 2011 revealed LAD 50%. RCA PL 40%. EF 60%. Lexiscan 2015 within normal limits. Currently holding lovastatin 10 mg daily/home medication. Resume when clinically indicated. QTC 443. Normal QRS. Currently off nicardipine drip GI: Hypoalbuminemia Constipation- improved. Continue tube feedings with vital 1.5 goal 45 cc an hour Lansoprazole for GI prophylax Docusate sodium/senna 1 tablet twice daily for bowel regimen. Disimpaction ordered successful BM. now holding some of bowel regimen for diarrhea. FEN/RENAL: Urinary retention Straight cath every 8 hours Monitor intake and output. Monitor electrolytes. Replace electrolytes as indicated. ID: Monitor for signs and symptoms of infection. HEME: Monitor CBC. Monitor trends. No indication for transfusion of blood products at this time ENDO: Hypothyroidism Continue levothyroxine 50 ramon grams daily. TSH was 1.2 Monitor bedside glucose [id number] with aspart sliding scale insulin coverage/low regimen. PROPH: SCDs/enoxaparin 40 mg subcu daily for DVT prophylaxis held status post subarachnoid as above. Resume when okay with neurosurgery. Pantoprazole 40 mg IV for stress ulcer prophylaxis ACCESS: Peripheral IV providing adequate access at this time.
--- NOTE | 2017-11-14 16:39 | XR ---
EXAM DATE: 11/14/2017 4:20 PM EDT AGE/SEX: 72 years / Female INDICATIONS: Shortness of breath. CLINICAL DATA: This is the patient's subsequent encounter. Patient reports that signs and symptoms h ave been present for 4 - 6 days and indicates a pain score of Nonresponsive. MEDICAL/SURGICAL HISTORY: Non-responsive. Non-responsive. COMPARISON: [facility] – [place], CHEST 1V SINGLE AP, 11/12/2017. . FINDINGS: A single AP erect portable view of the chest was obtained and again demonstrates an endotracheal tube in place with the tip approximately 3 cm above the yocasta. The nasogastric tube remains in place as well. There is mild patchy opacity now noted in the right lung base which appears new from the prior study. The right lung is clear. The heart size remains within normal limits. There is no effusion. Th e bony thorax is intact. The heart and mediastinal structures remain within normal limits. CONCLUSION: New patchy area of opacity at the left lung base which could represent early pneumonia. Electronically signed by: Max Dean MD 11/14/2017 4:38 PM EDT
--- NOTE | 2017-11-14 17:35 | ECHRPT ---
Indication: HEART FAILURE CONCLUSIONS The left ventricular systolic function is low normal with an estimated ejection fraction in the rang e of 50- 55%. Normal left ventricular size. Wall thickness is normal. No regional wall motion abnormalities are present. There is trace tricuspid valve regurgitation. The estimated pulmonary arterial pressure is 37.7 mmHg. BP: / HR: Rhythm: Sinus MEASUREMENTS (Male / Female) Normal Values Technical Quality:Fair 2D ECHO LV Diastolic Diameter PLAX 4.2 cm 4.2 - 5.9 / 3.9 - 5.3 cm LV Systolic Diameter PLAX 3.3 cm IVS Diastolic Thickness 0.9 cm 0.6 - 1.0 / 0.6 - 0.9 cm LVPW Diastolic Thickness 0.9 cm 0.6 - 1.0 / 0.6 - 0.9 cm LV Relative Wall Thickness 0.4 LVOT Diameter 2.0 cm LA Systolic Diameter LX 3.5 cm 3.0 - 4.0 / 2.7 - 3.8 cm M-MODE Aortic Root Diameter MM 1.6 cm AV Cusp Separation MM 1.6 cm DOPPLER AV Peak Velocity 114.0 cm/s AV Peak Gradient 5.2 mmHg AI Peak Velocity 314.0 cm/s AI Peak Gradient 39.4 mmHg AI Pressure Half Time 374.0 ms LVOT Peak Velocity 91.8 cm/s LVOT Peak Gradient 3.4 mmHg AV Area Cont Eq pk 2.5 cm MV Area PHT 3.1 cm Mitral E Point Velocity 61.2 cm/s Mitral A Point Velocity 70.6 cm/s Mitral E to A Ratio 0.9 TR Peak Velocity 263.0 cm/s TR Peak Gradient 27.7 mmHg Right Atrial Pressure 10.0 mmHg Pulmonary Artery Systolic Pressu 37.7 mmHg Right Ventricular Systolic Press 37.7 mmHg PV Peak Velocity 114.0 cm/s PV Peak Gradient 5.2 mmHg FINDINGS LEFT VENTRICLE The left ventricular systolic function is low normal with an estimated ejection fraction in the rang e of 50- 55%. Normal left ventricular size. Wall thickness is normal. No regional wall motion abnormalities are present. RIGHT VENTRICLE Normal right ventricular size and systolic function. LEFT ATRIUM The left atrial size is normal. RIGHT ATRIUM The right atrial size is normal. ATRIAL SEPTUM Normal atrial septal thickness without atrial level shunting by limited color doppler interrogation. AORTA The aortic root and proximal ascending aorta are normal in size on limited imaging. MITRAL VALVE Structurally normal mitral valve. No mitral valve stenosis or regurgitation. AORTIC VALVE Trileaflet aortic valve. No aortic valve stenosis or regurgitation. TRICUSPID VALVE Structurally normal tricuspid valve. There is trace tricuspid valve regurgitation. The estimated pulmonary arterial pressure is 37.7 mmHg. PULMONARY VALVE No pulmonary valve regurgitation or stenosis. VESSELS The inferior vena cava is normal in size. PERICARDIUM No pericardial effusion. Haile Johnson MD, FACC, [facility] [place] (Electronically Signed) Final Date:14 November 2017 17:34
[2017-11-15] MEDS: Insulin NovoLOG Aspart Correctional Sugar Inj SQ SCH ×2 (01:31→06:01)
[2017-11-15] MEDS: Oral Hygiene Kit OROPHARYNG SCH ×2 (04:29→04:31)
[2017-11-15] MEDS: Metoprolol Inj 5 MG/5 ML Vial IV.PUSH SCH ×2 (04:30→12:57)
[2017-11-15] MEDS: Hypromellose 0.3% Opth Gel 10 GM Bottle EACH EYE SCH ×2 (04:30→10:40)
[2017-11-15 05:37] LABS: Hematocrit 37.7 % (35.0-46.0); Hemoglobin 12.3 gm/dL (11.6-15.3); Mean Corpuscular HGB Conc 32.7 % (32.0-36.0); Mean Corpuscular Hemoglobin 30.6 pg (27.0-34.0); Mean Corpuscular Volume 93.4 fL (80.0-100.0); Mean Platelet Volume 8.9 fL (7.0-11.0); Platelet Count 288 th/mm3 (150-450); Red Blood Count 4.03 mil/mm3 (4.00-5.30); Red Cell Distribution Width 13.7 % (11.6-17.2)
--- NOTE | 2017-11-15 05:44 | XR ---
EXAM DATE: 11/15/2017 5:41 AM EDT AGE/SEX: 72 years / Female INDICATIONS: Shortness of breath. CLINICAL DATA: This is the patient's subsequent encounter. Patient reports that signs and symptoms h ave been present for 4 - 6 days and indicates a pain score of Nonresponsive. MEDICAL/SURGICAL HISTORY: Non-responsive. Non-responsive. COMPARISON: C, CHEST 1V SINGLE AP, 11/14/2017. . FINDINGS: Stable ETT and NGT. Stable patchy left lower lung zone airspace disease. Cardiomediastinal contours a re within normal limits. Bony thorax is intact. CONCLUSION: 1. No significant interval change. 2. Stable ETT and NGT. 3. Stable patchy left lower lung zone airspace disease. Electronically signed by: Victor M Fortune MD 11/15/2017 5:43 AM EDT
[2017-11-15 05:52] LABS: Anion Gap 9 meq/L (5-15); Blood Urea Nitrogen 23 mg/dL (7-18); Calcium 9.4 mg/dL (8.5-10.1); Carbon Dioxide 26.1 meq/L (21.0-32.0); Chloride 104 meq/L (98-107); Glomerular Filtration Rate Greater Than 89 mL/min (>89); Glucose,Random 137 mg/dL (74-106); Potassium 4.5 meq/L (3.5-5.1); Sodium 139 meq/L (136-145)
[2017-11-15] MEDS: Levothyroxine 50 MCG Tablet PO SCH (06:01)
--- NOTE | 2017-11-15 09:07 | P.PNNEU ---
Subjective Subjective Comments: No acute events reported " i took too many xanax" No headache No chest pain No dyspnea Active Medications: Active Medications Acetaminophen (Tylenol Liq) 650 mg PO Q6H PRN PRN Reason: FEVER Last Admin: 11/14/17 12:51 Dose: 650 mg Al Hydroxide/Mg Hydroxide (Milk Of Magnesia Liq) 30 ml PO Q12H PRN PRN Reason: Mild Constipation Albuterol (Albuterol Neb (Prn)) 2.5 mg NEB Q2HR NEB PRN PRN Reason: SHORTNESS OF BREATH/WHEEZING Albuterol (Duoneb Neb ([place])) 1 ampul NEB Q4HR NEB HONORIO Last Admin: 11/15/17 04:33 Dose: 1 ampul Artificial Tears (Genteal Severe Dry Eye Relief 0.3% Opth Gel) 1 drops EACH EYE Q8H [facility] Last Admin: 11/15/17 04:30 Dose: 1 drops Bisacodyl (Dulcolax Supp) 10 mg RECTAL DAILY PRN PRN Reason: SEVERE CONSITIPATION Chlorhexidine Gluconate (Peridex 0.12% Oral Kit) 15 ml OROPHARYNG BID@0800, 2000 [facility] Last Admin: 11/14/17 20:01 Dose: 15 ml Dextrose (D50w Vial) 50 ml IV.PUSH UNSCH PRN PRN Reason: PER HYPOGLYCEMIA PROTOCOL Glucagon (Glucagon Inj) 1 mg OTHER PRN PRN PRN Reason: for Hypoglycemia Protocol Magnesium Sulfate Inj 4 gm/ (Sodium Chloride) 100 mls @ 50 mls/hr IV.SIG UNSCH PRN PRN Reason: For Magnesium 0.9 - 1.1 mg/dL Magnesium Sulfate Inj 2 gm/ (Sodium Chloride) 100 mls @ 50 mls/hr IV.SIG UNSCH PRN PRN Reason: For Magnesium 1.2 - 1.6 mg/dL Potassium Chloride (Kcl 20 Meq Premix Inj) 20 meq in 100 mls @ 50 mls/hr IV.SIG Q2H PRN PRN Reason: For Potassium 3.3 - 3.5 mEq/L Potassium Chloride (Kcl 40 Meq Premix Inj) 40 meq in 100 mls @ 25 mls/hr IV.SIG UNSCH PRN PRN Reason: For Potassium 3.3 - 3.5 mEq/L Potassium Chloride (Kcl 20 Meq Premix Inj) 20 meq in 100 mls @ 50 mls/hr IV.SIG Q2H PRN PRN Reason: For Potassium 2.8 - 3.2 mEq/L Potassium Phosphate 30 mmol/ (Sodium Chloride) 260 mls @ 42 mls/hr IV.SIG UNSCH PRN PRN Reason: SEE LABEL COMMENTS Last Admin: 11/11/17 17:00 Dose: 42 mls/hr Sodium Phosphate 30 mmol/ (Sodium Chloride) 260 mls @ 42 mls/hr IV.SIG UNSCH PRN PRN Reason: For Phosphorus < 2.5 mg/dL Potassium Chloride (Kcl 40 Meq Premix Inj) 40 meq in 100 mls @ 25 mls/hr IV.SIG Q2H PRN PRN Reason: For Potassium 2.8 - 3.2 mEq/L Dexmedetomidine HCl 800 mcg/ (Sodium Chloride) 50 mls @ 0.66 mls/hr IV.CONT TITRATE PRN; Protocol PRN Reason: See Protocol Nicardipine HCl 25 mg/ Sodium (Chloride) 250 mls @ 10 mls/hr IV.CONT TITRATE PRN; Protocol PRN Reason: Per Protocol Last Admin: 11/11/17 00:13 Dose: 2 mg/hr, 20 mls/hr Insulin Aspart (Novolog Insulin Correctional Sugar Inj) 0 unit SQ Q6HR [facility]; Protocol Last Admin: 11/15/17 06:01 Dose: Not Given Labetalol HCl (Trandate Inj) 10 mg IV.PUSH Q1H PRN PRN Reason: BLOOD PRESSURE MANAGEMENT Lactulose (Lactulose Liq) 30 ml PO BID [facility] Last Admin: 11/14/17 20:01 Dose: 30 ml Lactulose (Lactulose Liq) 30 ml PO DAILY PRN PRN Reason: SEVERE CONSITIPATION Lansoprazole (Prevacid Solutab) 30 mg NG/OG DAILY [facility] Last Admin: 11/14/17 12:52 Dose: 30 mg Levetiracetam (Keppra Liq) 500 mg NG/OG BID [facility] Last Admin: 11/14/17 20:02 Dose: 500 mg Levothyroxine Sodium (Synthroid) 50 mcg PO DAILY@0600 [facility] Last Admin: 11/15/17 06:01 Dose: 50 mcg Magnesium Oxide (Mag-Ox) 800 mg PO UNSCH PRN PRN Reason: For Magnesium 1.2 - 1.6 mg/dL Metoprolol Tartrate (Lopressor Inj) 2.5 mg IV.PUSH Q6H [facility] Last Admin: 11/15/17 04:30 Dose: 2.5 mg Polyethylene Glycol (Miralax) 17 gm PO BID [facility] Last Admin: 11/14/17 20:02 Dose: 17 gm Potassium Bicarb/Potassium Chloride (K-Lyte Cl Eff) 50 meq PO UNSCH PRN PRN Reason: For Potassium 3.3 - 3.5 mEq/L Potassium Phosphate (K-Phos Original) 2,000 mg PO Q4H PRN PRN Reason: Phosphorus Less Than 2.5 mg/dL Potassium Phosphate (K-Phos Original) 2,000 mg PO UNSCH PRN PRN Reason: SEE LABEL COMMENTS Senna/Docusate Sodium (Steph-Colace) 1 tab PO BID [facility] Last Admin: 11/14/17 20:02 Dose: 1 tab Sennosides (Senokot) 17.2 mg PO Q12H PRN PRN Reason: Moderate Constipation Sodium Chloride (Ns Flush) 2 ml IV.FLUSH BID [facility] Last Admin: 11/14/17 20:02 Dose: 2 ml Sodium Chloride (Ns Flush) 2 ml IV.FLUSH PRN PRN PRN Reason: FLUSH AFTER USING IV ACCESS Thiamine HCl (Vitamin B1) 100 mg PO BID [facility] Last Admin: 11/14/17 20:01 Dose: 100 mg Allergies/Adverse Reactions: Allergies Allergy/AdvReac Type Severity Reaction Status Date / Time lamotrigine Allergy Unknown Rash Unverified 12/04/16 14:42 Review of Systems All other systems reviewed negative except as stated in HPI Physical Exam Vital signs: Vital Signs 11/14/17 10:00 11/14/17 11:00 11/14/17 11:40 Temperature 98.9 F Pulse Rate 73 76 73 Respiratory Rate 22 23 23 Blood Pressure 127/58 L 134/79 Pulse Oximetry 99 98 11/14/17 12:00 11/14/17 13:00 11/14/17 13:36 Temperature 99.1 F Pulse Rate 78 86 Respiratory Rate 24 24 22 Blood Pressure 135/63 108/65 Pulse Oximetry 96 97 11/14/17 14:00 11/14/17 15:00 11/14/17 15:58 Temperature 97.7 F 97.8 F Pulse Rate 79 77 72 Respiratory Rate 27 H 34 H 16 Blood Pressure 129/61 122/85 Pulse Oximetry 94 L 100 96 11/14/17 16:00 11/14/17 17:00 11/14/17 18:31 Temperature 98.1 F Pulse Rate 69 75 Respiratory Rate 19 Blood Pressure 107/57 L 119/56 L 121/57 L Pulse Oximetry 96 96 11/14/17 19:00 11/14/17 19:30 11/14/17 19:52 Temperature Pulse Rate 67 70 72 Respiratory Rate 18 19 21 Blood Pressure 129/58 L 119/59 L Pulse Oximetry 96 96 97 11/14/17 20:00 11/14/17 20:30 11/14/17 21:00 Temperature 98.1 F Pulse Rate 71 77 79 Respiratory Rate 23 19 20 Blood Pressure 123/80 134/82 125/60 Pulse Oximetry 98 97 96 11/14/17 21:30 11/14/17 22:00 11/14/17 22:30 Temperature Pulse Rate 75 73 72 Respiratory Rate 16 16 19 Blood Pressure 126/58 L 133/64 136/63 Pulse Oximetry 97 97 97 11/14/17 23:00 11/14/17 23:30 11/15/17 00:00 Temperature 98.4 F Pulse Rate 70 70 68 Respiratory Rate 16 26 H 16 Blood Pressure 138/63 134/69 121/58 L Pulse Oximetry 97 98 96 11/15/17 00:30 11/15/17 00:34 11/15/17 01:00 Temperature Pulse Rate 61 61 63 Respiratory Rate 16 16 16 Blood Pressure 106/59 L 118/59 L Pulse Oximetry 97 98 96 11/15/17 01:30 11/15/17 02:00 11/15/17 02:30 Temperature Pulse Rate 67 66 73 Respiratory Rate 16 16 16 Blood Pressure 114/57 L 140/67 156/74 H Pulse Oximetry 97 97 96 11/15/17 03:00 11/15/17 03:30 11/15/17 04:00 Temperature Pulse Rate 73 71 74 Respiratory Rate 17 17 28 H Blood Pressure 136/68 131/69 162/75 H Pulse Oximetry 95 95 94 L 11/15/17 04:30 11/15/17 04:34 11/15/17 05:00 Temperature Pulse Rate 79 70 70 Respiratory Rate 52 H 16 37 H Blood Pressure 164/75 H Pulse Oximetry 98 98 89 L 11/15/17 05:01 11/15/17 05:30 11/15/17 06:00 Temperature Pulse Rate 69 72 75 Respiratory Rate 40 H 20 22 Blood Pressure 114/54 L 118/59 L 128/60 Pulse Oximetry 95 96 97 11/15/17 06:30 11/15/17 07:00 Temperature Pulse Rate 76 75 Respiratory Rate 20 18 Blood Pressure 118/58 L Pulse Oximetry 96 Intake & Output 11/14/17 11/15/17 11/15/17 18:59 06:59 18:59 Intake Total 809 / 809 458 / 458 Output Total 1100 / 1100 301 / 301 Balance -291 / -291 157 / 157 Intake: Oral 0 / 0 0 / 0 Tube Feeding 559 / 559 308 / 308 Tube Irrigant 150 / 150 Water Bolus Amount 100 / 100 150 / 150 Output: Urine 300 / 300 Stool 0 / 0 1 / 1 Urine Amount (Catheter) 1100 / 1100 Indwelling Urethral Catheter 1100 / 1100 Other: Other Intake Source Saline Solution # Voids 1 Date of Last Bowel Movement 11/14/17 11/15/17 # Bowel Movements 2 0 Narrative: GENERAL: NAD, HEAD: Normocephalic. NECK: Supple, trachea midline. No lymphadenopathy. EYES: No scleral icterus. No injection or drainage. CARDIOVASCULAR: Regular rate and rhythm RESPIRATORY: Breath sounds equal bilaterally. GASTROINTESTINAL: Abdomen soft, non-tender, nondistended. MUSCULOSKELETAL: No cyanosis, or edema. SKIN: Warm and dry. NEURO: very alert, follows, on non-rebreather, able to form sentences, dysphonic speech, with all 4 ext. blackwell to gravity - Constitutional no acute distress - Routine HEENT Exam Head: Present: normocephalic Eye: Present: EOMI - Urinary Catheter Management Indwelling Urethral Catheter Cath placed during this visit: yes, but has since been removed by the nurse Reason for continuing: Not indwelling catheter Insertion date: 11/08/17 Insertion time: 20:10 Removal date: 11/12/17 Removal time: 06:00 Objective Laboratory Results - last 24 hr 11/08/17 11/14/17 11/14/17 20:30 12:43 16:50 WBC RBC Hgb Hct MCV MCH MCHC RDW Plt Count MPV Sodium Potassium Chloride Carbon Dioxide Anion Gap BUN Creatinine Estimated GFR POC Glucose 211 H 169 H Random Glucose Calcium Ur Buprenorphine Negative Ur Heroin Screen Negative Urine Oxycodone Negative Ur Methadone Negative U Hydromorphone Confirm Negative Urine Fentanyl Negative Urine Gabapentin Positive A Ur Phencyclidine (PCP) Negative Urine MDPV Negative Ur MDMA & Metabolites Negative U Benzodiazepine Confm Positive A Ur Synth THC (K2) Negative 11/15/17 11/15/17 11/15/17 00:51 05:11 05:11 WBC 12.0 H RBC 4.03 Hgb 12.3 Hct 37.7 MCV 93.4 MCH 30.6 MCHC 32.7 RDW 13.7 Plt Count 288 MPV 8.9 Sodium 139 Potassium 4.5 Chloride 104 Carbon Dioxide 26.1 Anion Gap 9 BUN 23 H Creatinine 0.56 Estimated GFR Greater than 89 POC Glucose 145 H Random Glucose 137 H D Calcium 9.4 Ur Buprenorphine Ur Heroin Screen Urine Oxycodone Ur Methadone U Hydromorphone Confirm Urine Fentanyl Urine Gabapentin Ur Phencyclidine (PCP) Urine MDPV Ur MDMA & Metabolites U Benzodiazepine Confm Ur Synth THC (K2) Microbiology 11/15/17 00:23 Gram Stain - Final Sputum - Endotracheal Review/Management - Diagnosis (1) Acute encephalopathy Code(s): G93.40 - Encephalopathy, unspecified Status: Acute Current Visit: Yes (2) Depression Code(s): F32.9 - Major depressive disorder, single episode, unspecified Status : Acute Current Visit: Yes (3) Hypothyroid Code(s): E03.9 - Hypothyroidism, unspecified Status: Acute Current Visit: Yes (4) HLD (hyperlipidemia) Code(s): E78.5 - Hyperlipidemia, unspecified Status: Acute Current Visit: Yes - Review/Management Plan: Likely associated with secondary effects of benzodiazepines resulting in hypersomnolence encephalopathy Recommendations mental status improved. ox 3, has insight psych eval ok for floor with tele, once cleared by CCM (2) Depression Qualifiers: Depression Type: major depressive disorder
[2017-11-15] MEDS: Chlorhexidine 0.12% Oral Kit 15 ML UDC OROPHARYNG SCH (10:44)
[2017-11-15] MEDS: Polyethylene Glycol 3350 17 GM Packet PO SCH (12:55)
[2017-11-15] MEDS: Senna/Docusate Sodium 8.6/50 MG Tablet PO SCH (12:55)
--- NOTE | 2017-11-15 13:16 | P.PNCC ---
Subjective Subjective Remarks/Hospital Course: 72-year-old female with past medical history of bipolar depression, hyperlipidemia, mild coronary artery disease on left heart cath 2011, hypothyroidism, ongoing tobacco abuse who presented to [facility] emergency department with altered mental status after she was found down in her home near nearly empty Xanax bottle. Her neighbor reported that she frequently speaks of suicidal intent. GCS was 4 upon arrival. She was intubated for airway protection by Dr. Redman in the emergency department. Prior medication list also include lithium. 11/09: Afebrile. Currently on no sedation but minimally responsive. Positive gag and cough. Urine toxicology screen positive for benzodiazepines only. [place] level 0.8. EKG shows sinus bradycardia with no QTC abnormalities 11/10: Afebrile. Placed on propofol drip overnight due to hypertension. Will add as needed labetalol but increase to every 1 hours and Nitropaste. Dexmedetomidine drip and attempt to wean if unable to without pharmacological assistance. EEG/MRI brain remains 11/11: Resting comfortably in bed. More arousable but does not follow commands. Eyes are open and moves all 4 extremities spontaneously but not purposefully. Noted MRI brain yesterday revealed chronic likely subdural hygromas right frontal/parietal. Small right occipital subarachnoid hemorrhage. Received brain CT this a.m. pending. Emesis overnight. Will check ABG and chest x-ray this morning. 11/12: Appears comfortable in bed. Eyes open to voice but not following commands. No bowel movement since admission. Tolerating tube feeds. SUBJECTIVE: 11/13: More interactive this a.m. Nods head very weakly and squeezes bilateral upper extremities to command. Wiggles toes very weakly. Will plan a lumbar puncture if able to obtain some consent from healthcare proxy. EEG under good going currently. No problem. 11/14: continues to be more awake, but still somewhat overall somnolent. also with significant secretions and unable to cough them up adequately. failed SBT today for tachypnea and copious secretions. 11/15: awake, alert. successfully extubated this AM. quite dysphagic: will ask speech to formally swallow eval. need psych to eval. clinically improving. denies complaints. Objective Vital Signs / I&O: Vital Signs 11/14/17 13:36 11/14/17 14:00 11/14/17 15:00 Temperature 36.5 C 36.6 C Pulse Rate 79 77 Respiratory Rate 22 27 H 34 H Blood Pressure 129/61 122/85 Pulse Oximetry 97 94 L 100 11/14/17 15:58 11/14/17 16:00 11/14/17 17:00 Temperature 36.7 C Pulse Rate 72 69 75 Respiratory Rate 16 19 Blood Pressure 107/57 L 119/56 L Pulse Oximetry 96 96 96 11/14/17 18:31 11/14/17 19:00 11/14/17 19:30 Temperature Pulse Rate 67 70 Respiratory Rate 18 19 Blood Pressure 121/57 L 129/58 L 119/59 L Pulse Oximetry 96 96 11/14/17 19:52 11/14/17 20:00 11/14/17 20:30 Temperature 36.7 C Pulse Rate 72 71 77 Respiratory Rate 21 23 19 Blood Pressure 123/80 134/82 Pulse Oximetry 97 98 97 11/14/17 21:00 11/14/17 21:30 11/14/17 22:00 Temperature Pulse Rate 79 75 73 Respiratory Rate 20 16 16 Blood Pressure 125/60 126/58 L 133/64 Pulse Oximetry 96 97 97 11/14/17 22:30 11/14/17 23:00 11/14/17 23:30 Temperature Pulse Rate 72 70 70 Respiratory Rate 19 16 26 H Blood Pressure 136/63 138/63 134/69 Pulse Oximetry 97 97 98 11/15/17 00:00 11/15/17 00:30 11/15/17 00:34 Temperature 36.9 C Pulse Rate 68 61 61 Respiratory Rate 16 16 16 Blood Pressure 121/58 L 106/59 L Pulse Oximetry 96 97 98 11/15/17 01:00 11/15/17 01:30 11/15/17 02:00 Temperature Pulse Rate 63 67 66 Respiratory Rate 16 16 16 Blood Pressure 118/59 L 114/57 L 140/67 Pulse Oximetry 96 97 97 11/15/17 02:30 11/15/17 03:00 11/15/17 03:30 Temperature Pulse Rate 73 73 71 Respiratory Rate 16 17 17 Blood Pressure 156/74 H 136/68 131/69 Pulse Oximetry 96 95 95 11/15/17 04:00 11/15/17 04:30 11/15/17 04:34 Temperature Pulse Rate 74 79 70 Respiratory Rate 28 H 52 H 16 Blood Pressure 162/75 H 164/75 H Pulse Oximetry 94 L 98 98 11/15/17 05:00 11/15/17 05:01 11/15/17 05:30 Temperature Pulse Rate 70 69 72 Respiratory Rate 37 H 40 H 20 Blood Pressure 114/54 L 118/59 L Pulse Oximetry 89 L 95 96 11/15/17 06:00 11/15/17 06:30 11/15/17 07:00 Temperature Pulse Rate 75 76 75 Respiratory Rate 22 20 18 Blood Pressure 128/60 118/58 L Pulse Oximetry 97 96 11/15/17 11:00 Temperature Pulse Rate 72 Respiratory Rate 18 Blood Pressure Pulse Oximetry Intake & Output 11/14/17 11/15/17 11/15/17 18:59 06:59 18:59 Intake Total 809 / 809 458 / 458 Output Total 1100 / 1100 301 / 301 Balance -291 / -291 157 / 157 Intake: Oral 0 / 0 0 / 0 Tube Feeding 559 / 559 308 / 308 Tube Irrigant 150 / 150 Water Bolus Amount 100 / 100 150 / 150 Output: Urine 300 / 300 Stool 0 / 0 1 / 1 Urine Amount (Catheter) 1100 / 1100 Indwelling Urethral Catheter 1100 / 1100 Other: Other Intake Source Saline Solution # Voids 1 Date of Last Bowel Movement 11/14/17 11/15/17 # Bowel Movements 2 0 Result Diagrams: 11/15/17 05:11 11/15/17 05:11 Objective Remarks: GENERAL: 72-year-old female currently resting in bed s/p extubation. SKIN: Warm and dry. HEAD: Atraumatic. Normocephalic. EYES: Pupils equal and round about 2 mm bilaterally and reactive. No scleral icterus. No injection or drainage. ENT: No nasal bleeding or discharge. Mucous membranes pink and moist. NECK: Trachea midline. No JVD. CARDIOVASCULAR: RRR. sinus. RESPIRATORY: No accessory muscle use. nc o2. vigorous cough. GASTROINTESTINAL: Abdomen soft, non-tender, nondistended. MUSCULOSKELETAL: Extremities without without significant peripheral edema. Inverted toes bilaterally.. NEUROLOGICAL: RASS 0/-1. follows commands. much more awake and alert today. CAM+ . Assessment and Plan - Assessment and Plan Plan: NEURO/PSYCH: Acute encephalopathy Suspected benzodiazepine overdose Suicidal ideation Diagnoses of bipolar disease I Small right occipital subarachnoid hemorrhage Right subdural hygroma frontal/parietal CT brain 11/08 revealed no acute intracranial findings MRI brain revealed right subdural hygroma involving the frontal and parietal regions. Small right occipital subarachnoid hemorrhage. MRA brain/neck revealed no acute findings EEG revealed mild to moderate encephalopathy. Sleep state. No epileptiform activity. Repeat brain CT 11/12 - widening of the cortical sulci and some expansion of the extra axial spaces over the frontal lobes likely related to atrophy Neurosurgery recommends follow-up CT 2-3 weeks Number neurology consult Dr. Baxter. LP d/c'd given improving mentation. not needed diagnostically per Dr. Baxter. Currently holding lithium carbonate 300 mg by mouth twice daily/home medication. Level was 0.8. Resume when clinically indicated. Recheck in a.m. 11/11. Previously on alprazolam 0.25 mg every 6 hours as needed. This has been held. Previously on sertraline 25 mg p.o. daily. This has been held. Previously on pregabalin 50 mg p.o. twice daily. This has been held. Holding aspirin 81 mg daily. Resume clinically indicated Psychiatric evaluation for Redman act once extubated and able to interact good candidate for med/psych for ongoing medicine and psychiatric services. RESP: Acute hypoxic and hypercarbic respiratory failure secondary to likely overdose possibly intentional- improving. Ongoing tobaccoism wean o2 by nc for goal spo2 > 90%. OOB aggressive pulmonary toilet PT consult. Albuterol/ipratropium aerosols every 4 hours with albuterol aerosols every 2 hours as needed for dyspnea Tobacco cessation self evaluation pamphlet will be provided when clinically indicated Chest x-ray 09/13 revealed no acute cardia pulmonary findings CV: Coronary artery disease Hyperlipidemia History of SVT Left heart catheterization 2011 revealed LAD 50%. RCA PL 40%. EF 60%. Lexiscan 2015 within normal limits. Currently holding lovastatin 10 mg daily/home medication. Resume when clinically indicated. QTC 443. Normal QRS. transition iv lopressor to PO metoprolol 12.5mg po q6h. GI: Hypoalbuminemia Constipation- improved. formal swallow eval and advance diet per speech recommendations. Lansoprazole for GI prophylax Docusate sodium/senna 1 tablet twice daily for bowel regimen. successful BM. now holding some of bowel regimen for diarrhea. FEN/RENAL: Urinary retention Straight cath every 8 hours Monitor intake and output. Monitor electrolytes. Replace electrolytes as indicated. ID: Monitor for signs and symptoms of infection. HEME: Monitor CBC. Monitor trends. No indication for transfusion of blood products at this time ENDO: Hypothyroidism Continue levothyroxine 50 ramon grams daily. TSH was 1.2 Monitor bedside glucose [id number] with aspart sliding scale insulin coverage/low regimen. PROPH: SCDs/enoxaparin 40 mg subcu daily for DVT prophylaxis held status post subarachnoid as above. Resume when okay with neurosurgery. Pantoprazole 40 mg IV for stress ulcer prophylaxis ACCESS: Peripheral IV providing adequate access at this time. dispo: safe for transfer to med/psych and out of ICU. need psychiatric consultation.
--- NOTE | 2017-11-15 13:26 | P.CONPSY ---
Provisional Diagnosis Admission Date: November 08, 2017 21:47 Baxter I.: Bipolar disorder, current episode depressive Baxter II.: Deferred Baxter III.: Hypertension, hypothyroidism, seizures Baxter IV.: Recent of her son, poor family and social support Baxter V.: 38 History of Present Illness Service: Critical care Primary Care Provider: No Primary Care Physician Family Provider: No Primary Care Physician Chief Complaint: Altered mental status History of Present Illness: The patient is a 72-year-old woman, , domiciled alone in [place], supported by Social Security, per family and social support, with psychiatric history of bipolar disorder, for previous psychiatric hospitalizations, the last hospitalization was 13 years ago, she has an outpatient established psychiatric care with Dr. Grijalva in [place], she is in lithium 300 mg twice daily, Zoloft 25 mg, Xanax 0.5 mg twice daily, gabapentin 300 mg 3 times daily, with past medical history of hyperlipidemia, mild coronary artery disease on left heart cath 2011, hypothyroidism, ongoing tobacco abuse who presented to [facility] emergency department with altered mental status after she was found down in her home near nearly empty Xanax bottle. Her neighbor reported that she frequently speaks of suicidal intent. GCS was 4 upon arrival. She was intubated for airway protection by Dr. Redman in the emergency department. She prescription bottle with Xanax 0.5 mg p.o. 3 times daily and a bottle of 90 was filled on 08/23/17. 21 pills are left in the bottle. Prior medication list also include lithium. Urine toxicology screen positive for benzodiazepines only. [place] level 0.8.Patient was intubated for airway protection. EtOH negative. Ammonia level normal. CT brain negative. Patient was consulted to psychiatry now that is extubated for assessment of suicidal attempt. On my psychiatric evaluation the patient is calm, superficially cooperative, communication is limited due to hoarseness. The patient was able to tell me that she has been feeling quite depressed since her son last July. She has being living with her now for several years, she has no family members, no friends, she has no reason to live for. She reports that today she feels a little bit much better mood crowley, she has been thinking that if she did not is because "God wants me here", but she does report feeling hopeless, helpless, worthless, with increased anhedonia, and sense of abandonment. At this moment the patient was able to contract for safety and denied active suicidal ideation. Patient is fully oriented 3. No attention deficit, no fluctuation of consciousness present. No loosening of associations, no paranoia, no agitation, no aggressive behavior, no ideas of reference are present. The patient denies the use of alcohol and illegal drugs. PPH: The patient has history of bipolar disorder, 4 psychiatric hospitalizations , last hospitalization 30 years ago. Outpatient psychiatric care with Dr. Grijalva. She has been stable in lithium 300 mg. Zoloft 25 mg. Xanax 0.5 mg twice daily. Gabapentin 300 mg 3 times daily. The patient denies any previous suicidal attempts. PMH: Patient has medical history of hypothyroidism, CAD, seizures Substance history: The patient denies the use of illegal drugs or alcohol. Family history: Patient reports that her son was diagnosed with schizophrenia in the 20s Social history: The patient was born and raised in [place], she lives alone in [place], she is , supported by Social Security, her highest level of education is 2 years of college Review of Systems Constitutional: Denies anorexia, Denies body ache(s), Denies chills, Denies daytime sleepiness, Denies excessive sweating, Denies fatigue, Denies fever(s), Denies headache(s), Denies increased appetite, Denies lack of energy, Denies malaise, Denies night sweats, Denies weakness, Denies weight gain, Denies weight loss, Denies other Eyes: Denies blind spots, Denies blurry vision, Denies bulging eyes, Denies change in vision, Denies double vision, Denies discharge, Denies dry eyes, Denies floaters, Denies irritation, Denies itchy eyes, Denies loss of vision, Denies pain, Denies requires corrective lenses, Denies sensitivity to light, Denies other Ears, Nose, Mouth, and Throat: Denies abnormal hearing, Denies bleeding gums, Denies bad breath, Denies change in voice, Denies dental pain, Denies difficulty swallowing, Denies dizziness, Denies dry mouth, Denies ear discharge , Denies ear pain, Denies facial pain, Denies headache(s), Denies hearing loss, Denies hoarseness, Denies lip swelling, Denies nosebleed, Denies mouth lesions, Denies mouth pain, Denies nasal congestion, Denies nasal discharge, Denies nasal obstruction, Denies nasal trauma, Denies neck lump, Denies neck pain, Denies nose pain, Denies pain with swallowing, Denies poor balance, Denies post nasal drip, Denies ringing in the ears, Denies sinus pain, Denies sinus pressure , Denies sore throat, Denies throat swelling, Denies tongue swelling, Denies other Cardiovascular: Denies chest pain, Denies chest pain at rest, Denies chest pain with activity, Denies excessive sweating, Denies fainting, Denies fast heart rate, Denies foot swelling, Denies generalized swelling, Denies irregular heart rhythm, Denies leg pain with activity, Denies leg sores, Denies leg swelling, Denies lightheadedness, Denies radiating jaw, neck or arm pain, Denies rapid, pounding, or irregular heartbeat, Denies shortness of breath, Denies shortness of breath with activity, Denies shortness of breath when lying down, Denies shortness of breath causing sudden awakening, Denies slow heart rate, Denies other Respiratory: Reports cough, Reports pain with cough Gastrointestinal: Denies abdominal pain, Denies belching, Denies black, tarry stools, Denies bloating, Denies bright, red blood in stools, Denies change in bowel habits, Denies constant urge to pass stool, Denies change in stools, Denies coffee ground vomit, Denies constipation, Denies cramping, Denies difficulty swallowing, Denies excessive passing of gas, Denies feeling full early, Denies heartburn, Denies incontinent of stools, Denies loose stools, Denies nausea, Denies pain with swallowing, Denies vomiting, Denies vomiting blood, Denies other Genitourinary: Reports urinary incontinence Musculoskeletal: Denies abnormal walking, Denies back pain, Denies body aches, Denies decreased muscle mass, Denies deformity, Denies joint pain, Denies joint swelling, Denies limited joint movement, Denies loss of height, Denies muscle cramps, Denies muscle weakness, Denies neck pain, Denies numbness, Denies radiating pain into limb, Denies stiffness, Denies tingling, Denies other Neurologic: Denies abnormal hearing, Denies abnormal movements, Denies abnormal speech, Denies abnormal walking, Denies behavioral changes, Denies burning sensations, Denies confusion, Denies dizziness, Denies fainting, Denies frequent falls, Denies headache(s), Denies lack of coordination, Denies localized weakness, Denies loss of vision, Denies memory loss, Denies numbness, Denies other visual disturbances, Denies radiating pain, Denies restless legs, Denies convulsions, Denies seizure-like activity, Denies sensory deficit, Denies tingling, Denies tingling/numbness/burning sensations, Denies tremor(s), Denies unsteadiness, Denies weakness, Denies other Psychiatric: Reports change in appetite, Reports depression, Reports mood swings , Reports thoughts of hurting/killing yourself [facility] - History History Provided By: Medical Record - Medical History Medical History: Medical History (Last Reviewed 11/15/17 @ 12:46 by Nati Mckenzie, WOOD SCIENCE PROFESSOR) History of left heart catheterization (LHC) (Acute) Abdominal lipoma (Acute) SVT (supraventricular tachycardia) (Acute) Hypothyroid (Acute) HLD (hyperlipidemia) (Acute) CAD (coronary artery disease) (Acute) Bipolar 1 disorder, depressed (Acute) - Surgical History Surgical History: Surgical History (Last Reviewed 11/13/17 @ 09:22 by Betty Dewitt) History of skin graft (Acute) - Family History Family History: Family History (Last Reviewed 11/08/17 @ 21:27 by Maite Redman MD) Other Adopted - Tobacco History Tobacco Use In Past 30 Days: Yes Smoking Status: Smoker, status unknown Tobacco Type: Cigarettes Years Smoked: 57 - Alcohol History How Often Do You Have a Drink Containing Alcohol: Unable to Obtain - Substance Use History Substance History: Unable to Obtain - Travel History History of Recent Travel: No (unable to obtain) - Immunization History Tetanus Immunization: Unable to Assess Hx Influenza Vaccine This Season: Unable to Assess Medications and Allergies Active Medications: Active Medications Acetaminophen (Tylenol Liq) 650 mg PO Q6H PRN PRN Reason: FEVER Last Admin: 11/14/17 12:51 Dose: 650 mg Al Hydroxide/Mg Hydroxide (Milk Of Magnesia Liq) 30 ml PO Q12H PRN PRN Reason: Mild Constipation Albuterol (Albuterol Neb (Prn)) 2.5 mg NEB Q2HR NEB PRN PRN Reason: SHORTNESS OF BREATH/WHEEZING Albuterol (Duoneb Neb ([place])) 1 ampul NEB Q4HR NEB [facility] Last Admin: 11/15/17 11:12 Dose: 1 ampul Artificial Tears (Genteal Severe Dry Eye Relief 0.3% Opth Gel) 1 drops EACH EYE Q8H [facility] Last Admin: 11/15/17 10:40 Dose: 1 drops Bisacodyl (Dulcolax Supp) 10 mg RECTAL DAILY PRN PRN Reason: SEVERE CONSITIPATION Chlorhexidine Gluconate (Peridex 0.12% Oral Kit) 15 ml OROPHARYNG BID@0800, 2000 [facility] Last Admin: 11/15/17 10:44 Dose: 15 ml Dextrose (D50w Vial) 50 ml IV.PUSH UNSCH PRN PRN Reason: PER HYPOGLYCEMIA PROTOCOL Glucagon (Glucagon Inj) 1 mg OTHER PRN PRN PRN Reason: for Hypoglycemia Protocol Magnesium Sulfate Inj 4 gm/ (Sodium Chloride) 100 mls @ 50 mls/hr IV.SIG UNSCH PRN PRN Reason: For Magnesium 0.9 - 1.1 mg/dL Magnesium Sulfate Inj 2 gm/ (Sodium Chloride) 100 mls @ 50 mls/hr IV.SIG UNSCH PRN PRN Reason: For Magnesium 1.2 - 1.6 mg/dL Potassium Chloride (Kcl 20 Meq Premix Inj) 20 meq in 100 mls @ 50 mls/hr IV.SIG Q2H PRN PRN Reason: For Potassium 3.3 - 3.5 mEq/L Potassium Chloride (Kcl 40 Meq Premix Inj) 40 meq in 100 mls @ 25 mls/hr IV.SIG UNSCH PRN PRN Reason: For Potassium 3.3 - 3.5 mEq/L Potassium Chloride (Kcl 20 Meq Premix Inj) 20 meq in 100 mls @ 50 mls/hr IV.SIG Q2H PRN PRN Reason: For Potassium 2.8 - 3.2 mEq/L Potassium Phosphate 30 mmol/ (Sodium Chloride) 260 mls @ 42 mls/hr IV.SIG UNSCH PRN PRN Reason: SEE LABEL COMMENTS Last Admin: 11/11/17 17:00 Dose: 42 mls/hr Sodium Phosphate 30 mmol/ (Sodium Chloride) 260 mls @ 42 mls/hr IV.SIG UNSCH PRN PRN Reason: For Phosphorus < 2.5 mg/dL Potassium Chloride (Kcl 40 Meq Premix Inj) 40 meq in 100 mls @ 25 mls/hr IV.SIG Q2H PRN PRN Reason: For Potassium 2.8 - 3.2 mEq/L Dexmedetomidine HCl 800 mcg/ (Sodium Chloride) 50 mls @ 0.66 mls/hr IV.CONT TITRATE PRN; Protocol PRN Reason: See Protocol Nicardipine HCl 25 mg/ Sodium (Chloride) 250 mls @ 10 mls/hr IV.CONT TITRATE PRN; Protocol PRN Reason: Per Protocol Last Admin: 11/11/17 00:13 Dose: 2 mg/hr, 20 mls/hr Insulin Aspart (Novolog Insulin Correctional Sugar Inj) 0 unit SQ Q6HR [facility]; Protocol Last Admin: 11/15/17 06:01 Dose: Not Given Labetalol HCl (Trandate Inj) 10 mg IV.PUSH Q1H PRN PRN Reason: BLOOD PRESSURE MANAGEMENT Lactulose (Lactulose Liq) 30 ml PO BID [facility] Last Admin: 11/15/17 12:56 Dose: Not Given Lactulose (Lactulose Liq) 30 ml PO DAILY PRN PRN Reason: SEVERE CONSITIPATION Lansoprazole (Prevacid Solutab) 30 mg NG/OG DAILY [facility] Last Admin: 11/14/17 12:52 Dose: 30 mg Levetiracetam (Keppra Liq) 500 mg NG/OG BID [facility] Last Admin: 11/15/17 12:55 Dose: 500 mg Levothyroxine Sodium (Synthroid) 50 mcg PO DAILY@0600 [facility] Last Admin: 11/15/17 06:01 Dose: 50 mcg Magnesium Oxide (Mag-Ox) 800 mg PO UNSCH PRN PRN Reason: For Magnesium 1.2 - 1.6 mg/dL Metoprolol Tartrate (Lopressor Inj) 2.5 mg IV.PUSH Q6H [facility] Last Admin: 11/15/17 12:57 Dose: Not Given Polyethylene Glycol (Miralax) 17 gm PO BID [facility] Last Admin: 11/15/17 12:55 Dose: 17 gm Potassium Bicarb/Potassium Chloride (K-Lyte Cl Eff) 50 meq PO UNSCH PRN PRN Reason: For Potassium 3.3 - 3.5 mEq/L Potassium Phosphate (K-Phos Original) 2,000 mg PO Q4H PRN PRN Reason: Phosphorus Less Than 2.5 mg/dL Potassium Phosphate (K-Phos Original) 2,000 mg PO UNSCH PRN PRN Reason: SEE LABEL COMMENTS Senna/Docusate Sodium (Steph-Colace) 1 tab PO BID [facility] Last Admin: 11/15/17 12:55 Dose: Not Given Sennosides (Senokot) 17.2 mg PO Q12H PRN PRN Reason: Moderate Constipation Sodium Chloride (Ns Flush) 2 ml IV.FLUSH BID [facility] Last Admin: 11/15/17 10:41 Dose: 2 ml Sodium Chloride (Ns Flush) 2 ml IV.FLUSH PRN PRN PRN Reason: FLUSH AFTER USING IV ACCESS Thiamine HCl (Vitamin B1) 100 mg PO BID [facility] Last Admin: 11/15/17 12:55 Dose: 100 mg Allergies Allergy/AdvReac Type Severity Reaction Status Date / Time lamotrigine Allergy Unknown Rash Unverified 12/04/16 14:42 Home Medications Medication Instructions Recorded Confirmed Type Unable to Obtain Home Meds 11/08/17 11/08/17 History Exam Vital signs: Vital Signs 11/14/17 13:36 11/14/17 14:00 11/14/17 15:00 Temperature 97.7 F 97.8 F Pulse Rate 79 77 Respiratory Rate 22 27 H 34 H Blood Pressure 129/61 122/85 Pulse Oximetry 97 94 L 100 11/14/17 15:58 11/14/17 16:00 11/14/17 17:00 Temperature 98.1 F Pulse Rate 72 69 75 Respiratory Rate 16 19 Blood Pressure 107/57 L 119/56 L Pulse Oximetry 96 96 96 11/14/17 18:31 11/14/17 19:00 11/14/17 19:30 Temperature Pulse Rate 67 70 Respiratory Rate 18 19 Blood Pressure 121/57 L 129/58 L 119/59 L Pulse Oximetry 96 96 11/14/17 19:52 11/14/17 20:00 11/14/17 20:30 Temperature 98.1 F Pulse Rate 72 71 77 Respiratory Rate 21 23 19 Blood Pressure 123/80 134/82 Pulse Oximetry 97 98 97 11/14/17 21:00 11/14/17 21:30 11/14/17 22:00 Temperature Pulse Rate 79 75 73 Respiratory Rate 20 16 16 Blood Pressure 125/60 126/58 L 133/64 Pulse Oximetry 96 97 97 11/14/17 22:30 11/14/17 23:00 11/14/17 23:30 Temperature Pulse Rate 72 70 70 Respiratory Rate 19 16 26 H Blood Pressure 136/63 138/63 134/69 Pulse Oximetry 97 97 98 11/15/17 00:00 11/15/17 00:30 11/15/17 00:34 Temperature 98.4 F Pulse Rate 68 61 61 Respiratory Rate 16 16 16 Blood Pressure 121/58 L 106/59 L Pulse Oximetry 96 97 98 11/15/17 01:00 11/15/17 01:30 11/15/17 02:00 Temperature Pulse Rate 63 67 66 Respiratory Rate 16 16 16 Blood Pressure 118/59 L 114/57 L 140/67 Pulse Oximetry 96 97 97 11/15/17 02:30 11/15/17 03:00 11/15/17 03:30 Temperature Pulse Rate 73 73 71 Respiratory Rate 16 17 17 Blood Pressure 156/74 H 136/68 131/69 Pulse Oximetry 96 95 95 11/15/17 04:00 11/15/17 04:30 11/15/17 04:34 Temperature Pulse Rate 74 79 70 Respiratory Rate 28 H 52 H 16 Blood Pressure 162/75 H 164/75 H Pulse Oximetry 94 L 98 98 11/15/17 05:00 11/15/17 05:01 11/15/17 05:30 Temperature Pulse Rate 70 69 72 Respiratory Rate 37 H 40 H 20 Blood Pressure 114/54 L 118/59 L Pulse Oximetry 89 L 95 96 11/15/17 06:00 11/15/17 06:30 11/15/17 07:00 Temperature Pulse Rate 75 76 75 Respiratory Rate 22 20 18 Blood Pressure 128/60 118/58 L Pulse Oximetry 97 96 11/15/17 11:00 Temperature Pulse Rate 72 Respiratory Rate 18 Blood Pressure Pulse Oximetry Intake & Output 11/14/17 11/15/17 11/15/17 18:59 06:59 18:59 Intake Total 809 / 809 458 / 458 Output Total 1100 / 1100 301 / 301 Balance -291 / -291 157 / 157 Intake: Oral 0 / 0 0 / 0 Tube Feeding 559 / 559 308 / 308 Tube Irrigant 150 / 150 Water Bolus Amount 100 / 100 150 / 150 Output: Urine 300 / 300 Stool 0 / 0 Urine Amount (Catheter) 1100 / 1100 Indwelling Urethral Catheter 1099 Other: Other Intake Source Saline Solution # Voids 1 Date of Last Bowel Movement 11/14/17 11/15/17 # Bowel Movements 2 0 Narrative: The patient seems to be psychomotor retarded, but no agitation, no EPS, no stiffness, no withdrawal symptoms present for Mental Status Examination Appearance: Appropriate Consciousness: Alert Orientation: x4 Motor Activity: Normal gait Speech: Unremarkable Language: Adequate Fund of Knowledge: Adequate Attention and Concentration: Adequate Memory: Unremarkable Mood: Sad Affect: Sad Thought Process & Associations: Intact Thought Content: Appropriate Hallucination Type: None Delusion Type: None Suicidal Ideation: Yes Suicidal Plan: No Suicidal Intention: No Homicidal Ideation: No Homicidal Plan: No Homicidal Intention: No Insight: Poor Judgment: Poor Assessment and Plan - Assessment (1) Bipolar depression Code(s): F31.30 - Bipolar disorder, current episode depressed, mild or moderate severity, unspecified Status: Acute - Plan Plan: Estimated LOS: [] days On psychiatric evaluation today I find a patient that is calm, superficially cooperative, with limited communication due to hoarseness after been intubated for several days, but oriented 3, logical, coherent and relevant, able to explain that she has overdosed with intentions to commit suicide based on her ongoing symptomatology of depression triggered by the of her son last July. The patient reports that she has been feeling quite hopeless, helpless, worthless, with increased feeling of abandonment, rejection, anhedonia, and suicidal thoughts to the point that she tried to commit suicide by overdosing. This is a patient with a very poor social and family support. She has an extensive psychiatric history of bipolar disorder, for previous psychiatric hospitalizations, previous suicide attempts, she has been in outpatient psychiatric care with Dr. Zepeda on several medication, as explained above. This patient has an elevated risk of danger to self, very few protective factors for suicidality, and she needs to be admitted in psychiatry for stabilization and safety. I have not recommending to restart any psychotropic at the moment. She can be medicated for anxiety with Ativan 0.5-1 mg 3 times daily as needed basis. Once the patient is medically stable, she can be transfer to med psych. Extensive support, motivation and psychoeducation provided. Justification for Continued Inpatient Stay: She will be admitted in psychiatry once medically stable. Please transferred to med psych.
--- NOTE | 2017-11-15 17:59 | P.DS ---
Date of admission: 11/08/17 21:47 Primary care physician: No Primary Care Physician Attending physician on discharge: Julian Stewart Torres Anticipated date of discharge: 11/15/17 Brief History from admission: 72-year-old female with past medical history of bipolar depression, hyperlipidemia, mild coronary artery disease on left heart cath 2011, hypothyroidism, ongoing tobacco abuse who presented to [facility] emergency department with altered mental status after she was found down in her home near nearly empty Xanax bottle. Her neighbor reported that she frequently speaks of suicidal intent. GCS was 4 upon arrival. She was intubated for airway protection by Dr. Redman in the emergency department. She prescription bottle with Xanax 0.5 mg p.o. 3 times daily and a bottle of 90 was filled on 08/23/17. 21 pills are left in the bottle. Prior medication list also include lithium. No prior prescription for TCAs noted. Most recent med list in EMR: Sertraline 25 mg (Sertraline HCl) 25 Mg Tab 25 Tab PO DAILY Xanax 0.25 Mg (Alprazolam) Alprazolam 0.25 mg Tab 1 Tab PO Q6H PRN Levothyroxine 50 mcg (Levothyroxine Sodium) 50 Mcg Tab 50 Mcg PO DAILY Lyrica (Pregabalin) 50 Mg Cap 50 Mg PO BID Lovastatin 10 Mg Tab 20 Mg PO HS Burchinal Carbonate 300 Mg Tab 300 Mg PO BID DS: Diagnosis - Discharge Diagnosis (1) Acute alteration in mental status Status: Acute (2) Acute encephalopathy Status: Acute (3) Depression Status: Acute (4) Subdural hygroma Status: Acute (5) Subarachnoid hemorrhage Status: Acute (6) Bipolar depression Status: Acute (7) History of left heart catheterization (LHC) Status: Acute (8) Abdominal lipoma Status: Acute (9) SVT (supraventricular tachycardia) Status: Acute (10) Hypothyroid Status: Acute (11) Bipolar 1 disorder, depressed Status: Acute DS: Summary Hospital Course: 72-year-old female with past medical history of bipolar depression, hyperlipidemia, mild coronary artery disease on left heart cath 2011, hypothyroidism, ongoing tobacco abuse who presented to [facility] emergency department with altered mental status after she was found down in her home near nearly empty Xanax bottle. Her neighbor reported that she frequently speaks of suicidal intent. GCS was 4 upon arrival. She was intubated for airway protection by Dr. Redman in the emergency department. Prior medication list also include lithium. 11/09: Afebrile. Currently on no sedation but minimally responsive. Positive gag and cough. Urine toxicology screen positive for benzodiazepines only. Burchinal level 0.8. EKG shows sinus bradycardia with no QTC abnormalities 11/10: Afebrile. Placed on propofol drip overnight due to hypertension. Will add as needed labetalol but increase to every 1 hours and Nitropaste. Dexmedetomidine drip and attempt to wean if unable to without pharmacological assistance. EEG/MRI brain remains 11/11: Resting comfortably in bed. More arousable but does not follow commands. Eyes are open and moves all 4 extremities spontaneously but not purposefully. Noted MRI brain yesterday revealed chronic likely subdural hygromas right frontal/parietal. Small right occipital subarachnoid hemorrhage. Received brain CT this a.m. pending. Emesis overnight. Will check ABG and chest x-ray this morning. 11/12: Appears comfortable in bed. Eyes open to voice but not following commands. No bowel movement since admission. Tolerating tube feeds. 11/13: More interactive this a.m. Nods head very weakly and squeezes bilateral upper extremities to command. Wiggles toes very weakly. Will plan a lumbar puncture if able to obtain some consent from healthcare proxy. EEG under good going currently. No problem. 11/14: continues to be more awake, but still somewhat overall somnolent. also with significant secretions and unable to cough them up adequately. failed SBT today for tachypnea and copious secretions. 11/15: awake, alert. successfully extubated this AM. quite dysphagic: will ask speech to formally swallow eval. need psych to eval. clinically improving. denies complaints. stable for transfer to med/psych. requested to be transferred by Dr. Benitez. - Time Spent with Patient Total time spent providing and/or coordinating discharge services: - Quality: VTE Deep Vein Thrombosis/Pulmonary Embolism Present on Admission: No Exam Vital signs: Vital Signs 11/14/17 18:31 11/14/17 19:00 11/14/17 19:30 Temperature Pulse Rate 67 70 Respiratory Rate 18 19 Blood Pressure 121/57 L 129/58 L 119/59 L Pulse Oximetry 96 96 11/14/17 19:52 11/14/17 20:00 11/14/17 20:30 Temperature 36.7 C Pulse Rate 72 71 77 Respiratory Rate 21 23 19 Blood Pressure 123/80 134/82 Pulse Oximetry 97 98 97 11/14/17 21:00 11/14/17 21:30 11/14/17 22:00 Temperature Pulse Rate 79 75 73 Respiratory Rate 20 16 16 Blood Pressure 125/60 126/58 L 133/64 Pulse Oximetry 96 97 97 11/14/17 22:30 11/14/17 23:00 11/14/17 23:30 Temperature Pulse Rate 72 70 70 Respiratory Rate 19 16 26 H Blood Pressure 136/63 138/63 134/69 Pulse Oximetry 97 97 98 11/15/17 00:00 11/15/17 00:30 11/15/17 00:34 Temperature 36.9 C Pulse Rate 68 61 61 Respiratory Rate 16 16 16 Blood Pressure 121/58 L 106/59 L Pulse Oximetry 96 97 98 11/15/17 01:00 11/15/17 01:30 11/15/17 02:00 Temperature Pulse Rate 63 67 66 Respiratory Rate 16 16 16 Blood Pressure 118/59 L 114/57 L 140/67 Pulse Oximetry 96 97 97 11/15/17 02:30 11/15/17 03:00 11/15/17 03:30 Temperature Pulse Rate 73 73 71 Respiratory Rate 16 17 17 Blood Pressure 156/74 H 136/68 131/69 Pulse Oximetry 96 95 95 11/15/17 04:00 11/15/17 04:30 11/15/17 04:34 Temperature Pulse Rate 74 79 70 Respiratory Rate 28 H 52 H 16 Blood Pressure 162/75 H 164/75 H Pulse Oximetry 94 L 98 98 11/15/17 05:00 11/15/17 05:01 11/15/17 05:30 Temperature Pulse Rate 70 69 72 Respiratory Rate 37 H 40 H 20 Blood Pressure 114/54 L 118/59 L Pulse Oximetry 89 L 95 96 11/15/17 06:00 11/15/17 06:30 11/15/17 07:00 Temperature Pulse Rate 75 76 75 Respiratory Rate 22 20 18 Blood Pressure 128/60 118/58 L Pulse Oximetry 97 96 11/15/17 11:00 11/15/17 14:48 Temperature Pulse Rate 72 78 Respiratory Rate 18 18 Blood Pressure Pulse Oximetry Intake & Output 11/14/17 11/15/17 11/15/17 18:59 06:59 18:59 Intake Total 809 / 809 458 / 458 Output Total 1100 / 1100 301 / 301 Balance -291 / -291 157 / 157 Intake: Oral 0 / 0 0 / 0 Tube Feeding 559 / 559 308 / 308 Tube Irrigant 150 / 150 Water Bolus Amount 100 / 100 150 / 150 Output: Urine 300 / 300 Stool 0 / 0 1 / 1 Urine Amount (Catheter) 1100 / 1100 Indwelling Urethral Catheter 1099 Other: Other Intake Source Saline Solution # Voids 1 Date of Last Bowel Movement 11/14/17 11/15/17 11/15/17 # Bowel Movements 2 0 Results Procedures completed during hospitalization: Head MRI 11/10/17 00:00 CONCLUSION: 1. Subtle small area of T2 prolongation in the right occipital lobe of concern for a small area of subtle subarachnoid hemorrhage. 2. Mild chronic small vessel ischemic change. 3. 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 Head MRA 11/10/17 10:47 CONCLUSION: 1. Apparent dissection line in the distal internal carotid arteries at the skull base is artifactual, related to the timing bolus of contrast administration. 2. Otherwise, intracranial vessels are patent without significant stenosis or aneurysmal disease. Patient is left vertebral dominant. Neck MRA 11/10/17 10:47 CONCLUSION: 1. Unremarkable MRA neck. No aneurysm or dissection or significant carotid stenosis. Percent stenosis is calculated using the diameter of the stenotic region over the diameter of the normal distal internal carotid artery Head CT 11/11/17 00:00 CONCLUSION: 1. No acute abnormality is seen. 2. Widening of the cortical sulci and some expansion of the extra axial spaces over the frontal lobes likely related to atrophy. This appearance has progressed since the prior study from 2014. Abdomen X-Ray 11/12/17 00:00 CONCLUSION: 1. Unremarkable bowel gas pattern. 2. Nasogastric tube in place with the distal side port at the level of the gastroesophageal junction. Chest X-Ray 11/15/17 05:00 CONCLUSION: 1. No significant interval change. 2. Stable ETT and NGT. 3. Stable patchy left lower lung zone airspace disease. Pending studies at discharge: Pending at discharge 11/13/17 Cytology [PTH] Stat Labs on day of discharge: Labs from last 24 hours 11/15/17 11/15/17 11/15/17 17:30 14:15 05:11 WBC RBC Hgb Hct MCV MCH MCHC RDW Plt Count MPV Sodium 139 Potassium 4.5 Chloride 104 Carbon Dioxide 26.1 Anion Gap 9 BUN 23 H Creatinine 0.56 Estimated GFR Greater than 89 POC Glucose 148 H 115 H Random Glucose 137 H D Calcium 9.4 11/15/17 11/15/17 05:11 00:51 WBC 12.0 H RBC 4.03 Hgb 12.3 Hct 37.7 MCV 93.4 MCH 30.6 MCHC 32.7 RDW 13.7 Plt Count 288 MPV 8.9 Sodium Potassium Chloride Carbon Dioxide Anion Gap BUN Creatinine Estimated GFR POC Glucose 145 H Random Glucose Calcium - Impressions ITS Impressions Head MRI 11/10/17 00:00 CONCLUSION: 1. Subtle small area of T2 prolongation in the right occipital lobe of concern for a small area of subtle subarachnoid hemorrhage. 2. Mild chronic small vessel ischemic change. 3. 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 Head MRA 11/10/17 10:47 CONCLUSION: 1. Apparent dissection line in the distal internal carotid arteries at the skull base is artifactual, related to the timing bolus of contrast administration. 2. Otherwise, intracranial vessels are patent without significant stenosis or aneurysmal disease. Patient is left vertebral dominant. Neck MRA 11/10/17 10:47 CONCLUSION: 1. Unremarkable MRA neck. No aneurysm or dissection or significant carotid stenosis. Percent stenosis is calculated using the diameter of the stenotic region over the diameter of the normal distal internal carotid artery Head CT 11/11/17 00:00 CONCLUSION: 1. No acute abnormality is seen. 2. Widening of the cortical sulci and some expansion of the extra axial spaces over the frontal lobes likely related to atrophy. This appearance has progressed since the prior study from 2014. Abdomen X-Ray 11/12/17 00:00 CONCLUSION: 1. Unremarkable bowel gas pattern. 2. Nasogastric tube in place with the distal side port at the level of the gastroesophageal junction. Chest X-Ray 11/15/17 05:00 CONCLUSION: 1. No significant interval change. 2. Stable ETT and NGT. 3. Stable patchy left lower lung zone airspace disease. Discharge Plan - Discharge Disposition Patient Disposition: 65 Disc To Psych Care Facility - Discharge Condition Condition: Serious - Discharge Order Discharge Orders: Discharge Order (Routine); Ordered 11/15/17 Ordered By: Julian Torres - Discharge Details Anticipated Discharge Date: 11/15/17 Discharge Comment: to med/psych - Physicians Team Primary Care Provider: Primary Care Elvira Tellez Attending Provider: Merced Romero Other Providers: [employer] ; Shmuel Baxter MD ; Paul Arndt MD ; Gianni Benitez MD
[2017-11-15] MEDS ORDERED: Metoprolol Tartrate 25 MG Tablet PO SCH (18:00)
[2017-11-15] MEDS ORDERED: Ketorolac Inj 30 MG/ML (IVP) Vial IV.PUSH ONE (19:21)
[2017-11-15] MEDS ORDERED: Famotidine PF Inj 20 MG/2 ML Vial IV.PUSH ONE (19:24)
--- NOTE | 2017-11-16 14:46 | ECG ---
Date Performed: 11/15/2017 Time Performed: 19:03:57 PTAGE: 72 years EKG: Sinus rhythm POSSIBLE LEFT ATRIAL ENLARGEMENT INCOMPLETE RIGHT BUNDLE BRANCH BLOCK LEFT ANTERIOR FASCICULAR BLOCK Since previous tracing, no significant change noted ABNORMAL ECG PREVIOUS TRACING : 11/13/2017 16.05 DOCTOR: Haile Johnson Interpretating Date/Time 11/16/2017 14:45:46
== END 2017-11-15 20:32 ==
LOC: NEPE 20:00 → NEDA 21:47 → HIMC 23:30 → H4EA 11-15 20:31
PROVIDERS: ADMIT Emergency Medicine; ATTEND Emergency Medicine

== ENCOUNTER 2017-11-15 20:40 | Inpatient (IN) ==
[2017-11-16] MEDS ORDERED: Aluminum/Magnesium/Simethacone Susp 30 ML UDC PO PRN (02:30)
[2017-11-16] MEDS ORDERED: Acetaminophen 325 MG Tablet PO PRN (02:30)
--- NOTE | 2017-11-16 07:56 | P.CON ---
History of Present Illness Service: [facility] Consult date: 11/15/17 Requesting Physician: Gianni Benitez Reason for Consult: Medical management Primary Care Provider: UNKNOWN Family Provider: No Primary Care Physician Chief Complaint: "I tried to kill myslef" History of Present Illness: 72-year-old female with past medical history significant for hypothyroidism, CAD, HLD, SVT, bipolar disorder, depression, and tobacco abuse who presented to [place] on 11/08 after she was found down at home on the kitchen floor with a bottle of Xanax nearby. Bottle of Xanax had been filled in August of this year with a quantity of 90 tablets of 0.5 mg with only 20 tablets remaining in bottle. She received 2 mg of IM Narcan in the field without improvements in mental status, GCS less than 8 on arrival. She was emergently intubated for airway protection in the emergency department. Head CT scan showed no acute finding. Chest x-ray with ET tube 1 cm above the yocasta and lungs clear. She was admitted to ICU while mechanically ventilated and neurology was consulted. Neurology believed slow recovery was secondary to hypersomnolence and encephalopathy from Xanax overdose. Patient was extubated on 11/15 and admitted to inpatient medical psychiatry unit. [facility] consulted to assist with ongoing medical management. Patient is seen and examine sitting on the side of the bed this morning attempting to eat breakfast. She is awake, alert, and oriented to self, place, and year. She reports that she was trying to kill her self. She reports does endorse some shortness of breath, cough, productive sputum, white in color. Patient also endorses some chills, and nausea without vomiting. She denies any abdominal pain, diarrhea, headache, or chest pain. [facility] - History History Provided By: Medical Record - Medical History Medical History: Medical History (Last Reviewed 11/16/17 @ 09:24 by Betty Dewitt) History of left heart catheterization (LHC) (Acute) Abdominal lipoma (Acute) SVT (supraventricular tachycardia) (Acute) Hypothyroid (Acute) HLD (hyperlipidemia) (Acute) CAD (coronary artery disease) (Acute) Bipolar 1 disorder, depressed (Acute) - Surgical History Surgical History: Surgical History (Last Reviewed 11/16/17 @ 09:24 by Betty Dewitt) History of skin graft (Acute) - Family History Family History: Family History (Last Reviewed 11/16/17 @ 09:24 by Betty Dewitt) Other Adopted - Tobacco History Tobacco Use In Past 30 Days: (unknown) Smoking Status: Smoker, status unknown Tobacco Type: Cigarettes Years Smoked: 57 - Alcohol History How Often Do You Have a Drink Containing Alcohol: Unable to Obtain - Substance Use History Substance History: Unable to Obtain - Travel History History of Recent Travel: No (unable to obtain) Medications and Allergies Active Medications: Active Medications Acetaminophen (Tylenol) 650 mg PO Q4H PRN PRN Reason: PAIN 1-5 OR TEMP > 101 Al Hydrox/Mg Hydrox/Simethicone (Mag-Al Plus Susp Liq) 30 ml PO Q6H PRN PRN Reason: DYSPEPSIA Al Hydroxide/Mg Hydroxide (Milk Of Magnesia Liq) 30 ml PO DAILY PRN PRN Reason: CONSTIPATION Albuterol (Albuterol Neb (Prn)) 1 mg NEB Q2HR NEB PRN PRN Reason: SHORTNESS OF BREATH/WHEEZING Albuterol (Duoneb Neb ([place])) 1 ampul NEB Q4HR NEB [facility] Last Admin: 11/16/17 03:31 Dose: 1 ampul Lansoprazole (Prevacid Solutab) 30 mg PO DAILY [place] Levetiracetam (Keppra Liq) 500 mg PO BID [facility] Levothyroxine Sodium (Synthroid) 50 mcg PO DAILY@0600 [facility] Nicotine (Habitrol 21 Mg Patch.24 Hr) 1 patch T-DERMAL DAILY [facility] Patch Removal (Remove Old Patch) 1 each T-DERMAL HS [facility] Allergies Allergy/AdvReac Type Severity Reaction Status Date / Time lamotrigine Allergy Unknown Rash Verified 11/16/17 02:12 Home Medications Medication Instructions Recorded Confirmed Type Unable to Obtain Home Meds 11/08/17 11/08/17 History Physical Exam Vital signs: Vital Signs 11/16/17 00:34 11/16/17 03:31 11/16/17 06:00 Temperature 36.3 C L Pulse Rate 110 H 100 H Respiratory Rate 16 20 16 Blood Pressure 110/63 Pulse Oximetry 87 L 11/16/17 06:35 11/16/17 06:36 Temperature Pulse Rate Respiratory Rate Blood Pressure Pulse Oximetry 92 L 92 L Intake & Output 07/27/18 07/28/18 07/28/18 18:59 06:59 18:59 Intake Total 240 / 240 Balance 240 / 240 Weight 52.163 kg Intake: Oral 240 / 240 Oral Supplement 0 / 0 Other: # Voids 4 # Bowel Movements 0 Weight On Admission 52.256 kg Narrative: GENERAL: Well-developed, well-nourished, elderly female sitting on the side of the bed in no acute distress. SKIN: Warm and dry. HEAD: Atraumatic. Normocephalic. EYES: Pupils equal and round. No scleral icterus. No injection or drainage. ENT: No nasal bleeding or discharge. Mucous membranes pink and moist. NECK: Trachea midline. No JVD. CARDIOVASCULAR: Regular rate and rhythm. RESPIRATORY: No accessory muscle use. Mild tachypnea noted, no wheezing or rhonchi, diminished breath sounds throughout. GASTROINTESTINAL: Abdomen soft, non-tender, nondistended. + bowel sounds MUSCULOSKELETAL: Extremities without clubbing, cyanosis, or edema. No obvious deformities. NEUROLOGICAL: Awake and alert oriented. No obvious cranial nerve deficits. Motor grossly within normal limits. 4/5 muscle strength in the arms and legs. Normal speech. PSYCHIATRIC: Appropriate mood and affect; insight and judgment normal. Assessment and Plan - Plan 72-year-old female with past medical history significant for hypothyroidism, CAD, HLD, SVT, bipolar disorder, depression, and tobacco abuse who presented to [place] on 11/08 after she was found down at home on the kitchen floor with a bottle of Xanax nearby. Patient was received 2 mg of IM Narcan on the field without any improvement in GCS, when arrived to ER was emergently intubated for airway protection and admitted to ICU for mechanical ventilation. Patient was subsequently extubated on 11/15 and cleared for inpatient psychiatry. She is now been admitted to medical psychiatry unit, [facility] consulted to assist with ongoing medical management. Xanax overdose Depression/bipolar disorder -Treatment plan per psychiatry -Patient is awake, alert, oriented and cooperative. 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 Small right occipital subarachnoid hemorrhage. - MRA brain/neck revealed no acute findings - EEG revealed mild to moderate encephalopathy. Sleep state. No epileptiform activity. - Repeat brain CT 11/12 - widening of the cortical sulci and some expansion of the extra axial spaces over the frontal lobes likely related to atrophy Cough/SOB -We will order CBC as well as chest x-ray -Afebrile, leukocytosis yesterday improved from the 26 -Order scheduled breathing treatments as well as as needed treatments -Mucinex, encourage incentive spirometer and out of bed. Hx SVT HTN HLD - continue p.o. Lopressor, will need to verify statin dose at home. - continue monitoring vitals and adjusting medications accordingly Hypothyroidism -Continue Synthroid DVT prophylaxis-ambulation Thank you Dr. Kaufman for this consultation. We will continue to follow along. Discussed Condition With: Discussed with patient and RN
--- NOTE | 2017-11-16 09:22 | XR ---
EXAM DATE: 11/16/2017 9:13 AM EDT AGE/SEX: 72 years / Female INDICATIONS: . Short of Breath CLINICAL DATA: This is the patient's initial encounter. Patient reports that signs and symptoms have been present for 4 - 6 days and indicates a pain score of 0/10. MEDICAL/SURGICAL HISTORY: Cardiovascular disease. Hypothyroidism. None. [place] [facility] [place]15/[place]. . FINDINGS: PA and lateral views of the chest demonstrate the lungs to be symmetrically aerated without evidence of mass, infiltrate or effusion. The cardiomediastinal contours are unremarkable. Osseous structures are intact. CONCLUSION: Electronically signed by: Jen Pendleton MD 11/16/2017 9:20 AM EDT
[2017-11-16] MEDS: Levothyroxine 50 MCG Tablet PO SCH (09:54)
[2017-11-16] MEDS: Metoprolol Tartrate 25 MG Tablet PO SCH ×2 (09:54→20:39)
--- NOTE | 2017-11-16 10:33 | P.HPPSY ---
Provisional Diagnosis Admission Date: November 15, 2017 21:09 [place] I.: Bipolar depression Competence Certification of Person's Competence To Provide Express and Informed Consent I have personally examined Sienna Rondon, a person being served at [facility] on, November 16, 2017 1025. Express and informed consent means consent voluntarily given in writing, by a competent person, after sufficient explanation and disclosure of the subject matter involved to enable the person to make a knowing and willful decision without any element of force, fraud, deceit, duress, or other form of constraint or coercion. This person is 18 years of age or older, is not now known to be incompetent to consent to treatment with a guardian advocate, and does not have a health care surrogate or proxy currently making medical treatment decisions. I have found this person to be one of the following: [] Competent to provide express and informed consent, as defined above, for voluntary admission to this facility and is competent to provide express and informed consent for treatment. He/she has the consistent capacity to make well reasoned, willful, and knowing decisions concerning his or her medical or mental health treatment. The person fully and consistently understands the purpose of the admission for examination/placement and is fully capable of personally exercising all rights assured under [place] [] Incompetent to provide express and informed consent to voluntary admission, and this is incompetent to provide express and informed consent to treatment. The person must be transferred to involuntary status and a petition for a guardian advocate filed with the Circuit Court. [x] Refusing to provide express and informed consent to voluntary admission but is competent to provide express and informed consent for treatment. The person must be discharged or transferred to involuntary status. Form shall be completed within 24 hours of a person's arrival at the receiving facility and filed in the clinical record of each person: 1. Admitted on a voluntary basis 2. Permitted to provide express and informed consent to his/her own treatment 3. Allowed to transfer from involuntary to voluntary status 4. Prior to permitting a person to consent to his or her own treatment after having been previously found incompetent to consent to treatment. History of Present Illness Capacity: Has capacity History of Present Illness: 11/16/2007 The patient is a 72-year-old woman, , domiciled alone in [place], supported by Social Security, per family and social support, with psychiatric history of bipolar disorder, for previous psychiatric hospitalizations, the last hospitalization was 13 years ago, she has an outpatient established psychiatric care with Dr. Grijalva in [place], she is in lithium 300 mg twice daily, Zoloft 25 mg, Xanax 0.5 mg twice daily, gabapentin 300 mg 3 times daily, with past medical history of hyperlipidemia, mild coronary artery disease on left heart cath 2011, hypothyroidism, ongoing tobacco abuse who presented to [facility] emergency department with altered mental status after she was found down in her home near nearly empty Xanax bottle. Her neighbor reported that she frequently speaks of suicidal intent. GCS was 4 upon arrival. She was intubated for airway protection by Dr. Redman in the emergency department. She prescription bottle with Xanax 0.5 mg p.o. 3 times daily and a bottle of 90 was filled on 08/23/17. 21 pills are left in the bottle. Prior medication list also include lithium. Urine toxicology screen positive for benzodiazepines only. [place] level 0.8.Patient was intubated for airway protection. EtOH negative. Ammonia level normal. CT brain negative. Patient was consulted to psychiatry now that is extubated for assessment of suicidal attempt. On my psychiatric evaluation the patient is calm, superficially cooperative, communication is limited due to hoarseness. The patient was able to tell me that she has been feeling quite depressed since her son last July. She has being living with her now for several years, she has no family members, no friends, she has no reason to live for. She reports that today she feels a little bit much better mood [place], she has been thinking that if she did not is because "God wants me here", but she does report feeling hopeless, helpless, worthless, with increased anhedonia, and sense of abandonment. At this moment the patient was able to contract for safety and denied active suicidal ideation. Patient is fully oriented 3. No attention deficit, no fluctuation of consciousness present. No loosening of associations, no paranoia, no agitation, no aggressive behavior, no ideas of reference are present. The patient denies the use of alcohol and illegal drugs. 11/16/2017 the patient was seen today for psychiatric reevaluation. She is now transferred to the [facility] unit. On my psychiatric evaluation the patient states that she feels a little bit better today. Reports improved mood, even though she still feels quite depressed. She reports that she continues to be thinking that she thought that she was done in her life, that she really did not want to live anymore, but the fact that she still alive "might mean something to me". She reports hopelessness, helplessness, sense of abandonment , loneliness, decreased sleep at night, decreased energy, but she denies suicidal ideation at this moment. She is fully oriented 3, without attention deficit, no fluctuation of consciousness at this moment. PPH: The patient has history of bipolar disorder, 4 psychiatric hospitalizations , last hospitalization 30 years ago. Outpatient psychiatric care with Dr. Grijalva. She has been stable in lithium 300 mg. Zoloft 25 mg. Xanax 0.5 mg twice daily. Gabapentin 300 mg 3 times daily. The patient denies any previous suicidal attempts. PMH: Patient has medical history of hypothyroidism, CAD, seizures Substance history: The patient denies the use of illegal drugs or alcohol. Family history: Patient reports that her son was diagnosed with schizophrenia in the 20s Social history: The patient was born and raised in [place], she lives alone in [place], she is , supported by Social Security, her highest level of education is 2 years of college 7 - Inpatient Certification I certify that the inpatient services were ordered in accordance with Medicare regulations governing the order. This includes certification that hospital inpatient services are reasonable and necessary and in the case of services not specified as inpatient-only under 42 CFR 419.22(n), that they are appropriately provided as inpatient services in accordance to with the 2-midnight benchmark under 43 CFR 412.3(e) I certify that inpatient psychiatric hospital services are medically necessary. Evaluation and treatment and/or diagnostic testing are expected to improve the patient's condition. The patient needs on a daily basis, active treatment furnished directly by or requiring the supervision of inpatient psychiatric facility personnel. Estimated Total Length of Stay (Days): 5 Plans for Post Hospital Care: Not yet determined [facility] - History History Provided By: Medical Record - Medical History Medical History: Medical History (Last Reviewed 11/16/17 @ 09:24 by Betty Dewitt) History of left heart catheterization (LHC) (Acute) Abdominal lipoma (Acute) SVT (supraventricular tachycardia) (Acute) Hypothyroid (Acute) HLD (hyperlipidemia) (Acute) CAD (coronary artery disease) (Acute) Bipolar 1 disorder, depressed (Acute) - Surgical History Surgical History: Surgical History (Last Reviewed 11/16/17 @ 09:24 by Betty Dewitt) History of skin graft (Acute) - Family History Family History: Family History (Last Reviewed 11/16/17 @ 09:24 by Betty Dewitt) Other Adopted - Tobacco History Tobacco Use In Past 30 Days: (unknown) Smoking Status: Smoker, status unknown Tobacco Type: Cigarettes Years Smoked: 57 - Alcohol History How Often Do You Have a Drink Containing Alcohol: Unable to Obtain - Substance Use History Substance History: Unable to Obtain - Travel History History of Recent Travel: No (unable to obtain) Medications and Allergies Active Medications: Active Medications Acetaminophen (Tylenol) 650 mg PO Q4H PRN PRN Reason: PAIN 1-5 OR TEMP > 101 Al Hydrox/Mg Hydrox/Simethicone (Mag-Al Plus Susp Liq) 30 ml PO Q6H PRN PRN Reason: DYSPEPSIA Al Hydroxide/Mg Hydroxide (Milk Of Magnesia Liq) 30 ml PO DAILY PRN PRN Reason: CONSTIPATION Albuterol (Duoneb Neb (Prn)) 1 ampul NEB Q2HR NEB PRN PRN Reason: SHORTNESS OF BREATH/WHEEZING Albuterol (Duoneb Neb ([place])) 1 ampul NEB Q6HR WHILE AWAKE NEB [facility] Guaifenesin (Mucinex Er) 600 mg PO BID [facility] Lansoprazole (Prevacid Solutab) 30 mg PO DAILY [facility] Last Admin: 11/16/17 09:55 Dose: 30 mg Levetiracetam (Keppra Liq) 500 mg PO BID [facility] Levothyroxine Sodium (Synthroid) 50 mcg PO DAILY@0600 [facility] Last Admin: 11/16/17 09:54 Dose: 50 mcg [place] Carbonate ([place] Carbonate) 300 mg PO BID [facility] Metoprolol Tartrate (Lopressor) 12.5 mg PO BID [facility] Last Admin: 11/16/17 09:54 Dose: 12.5 mg Nicotine (Habitrol 21 Mg Patch.24 Hr) 1 patch T-DERMAL DAILY [facility] Last Admin: 11/16/17 09:52 Dose: 1 patch Ondansetron HCl (Zofran Odt) 4 mg PO Q6H PRN PRN Reason: NAUSEA OR VOMITING Patch Removal (Remove Old Patch) 1 each T-DERMAL HS [place] Sertraline HCl (Zoloft) 25 mg PO DAILY [place] Allergies Allergy/AdvReac Type Severity Reaction Status Date / Time lamotrigine Allergy Unknown Rash Verified 11/16/17 02:12 Home Medications Medication Instructions Recorded Confirmed Type Unable to Obtain Home Meds 11/08/17 11/08/17 History Results - Imaging Impressions Chest X-Ray 11/16/17 00:00 CONCLUSION: Exam Vital signs: Vital Signs 11/16/17 00:34 11/16/17 03:31 11/16/17 06:00 Temperature 97.3 F L Pulse Rate 110 H 100 H Respiratory Rate 16 20 16 Blood Pressure 110/63 Pulse Oximetry 87 L 11/16/17 06:35 11/16/17 06:36 11/16/17 08:03 Temperature Pulse Rate 102 H Respiratory Rate 22 Blood Pressure Pulse Oximetry 92 L 92 L 11/16/17 08:04 Temperature Pulse Rate Respiratory Rate Blood Pressure Pulse Oximetry 92 L Intake & Output 11/15/17 11/16/17 11/16/17 18:59 06:59 18:59 Intake Total 240 / 240 Balance 240 / 240 Weight 52.163 kg Intake: Oral 240 / 240 Oral Supplement 0 / 0 Other: # Voids 4 # Bowel Movements 0 Weight On Admission 52.256 kg Narrative: No EPS, no stiffness, no psychomotor agitation or retardation, no withdrawal symptoms - Constitutional no acute distress - Routine HEENT Exam Head: Present: normocephalic Eye: Present: EOMI ENT: Present: mucous membranes moist Mental Status Examination Appearance: Appropriate Consciousness: Alert Orientation: x4 Motor Activity: Normal gait Speech: Unremarkable Language: Adequate Fund of Knowledge: Adequate Attention and Concentration: Adequate Memory: Unremarkable Mood: Sad Affect: Sad Thought Process & Associations: Intact Thought Content: Appropriate Hallucination Type: None Suicidal Ideation: Yes Suicidal Plan: No Suicidal Intention: No Homicidal Ideation: No Homicidal Plan: No Homicidal Intention: No Insight: Poor Judgment: Poor Assessment and Plan - Assessment (1) Bipolar depression Code(s): F31.30 - Bipolar disorder, current episode depressed, mild or moderate severity, unspecified Status: Acute - Plan Plan: Estimated LOS: [] days On psychiatric evaluation today I find a patient that is calm, more cooperative than yesterday, oriented 3, logical, coherent and relevant, able to explain that she has overdosed with intentions to commit suicide based on her ongoing symptomatology of depression triggered by the of her son last July. The patient reports that she has been feeling quite hopeless, helpless, worthless, with increased feeling of abandonment, rejection, anhedonia, and suicidal thoughts to the point that she tried to commit suicide by overdosing. This is a patient with a very poor social and family support. She has an extensive psychiatric history of bipolar disorder, for previous psychiatric hospitalizations, previous suicide attempts, she has been in outpatient psychiatric care with Dr. Zepeda on several medication, as explained above. This patient has an elevated risk of danger to self, very few protective factors for suicidality, and she needs to be admitted in psychiatry for stabilization and safety. Today I will start her lithium 200 mg twice daily, restart Zoloft 25 mg daily. Extensive support, motivation and psychoeducation provided. Will consult psychiatry for second opinion. Medicine to continue treatment of underlying medical conditions Justification for Continued Inpatient Stay: Patient will continue psychiatric admission for stabilization and safety.
[2017-11-16 12:15] LABS: Baso # (Auto) 0.1 th/mm3 (0.0-0.2); Baso % (Auto) 0.9 % (0.0-2.0); Eos % (Auto) 0.3 % (0.0-4.0); Hematocrit 39.8 % (35.0-46.0); Lymph # (Auto) 1.2 th/mm3 (1.0-4.8); Lymph % (Auto) 8.9 % (9.0-44.0); Mean Corpuscular HGB Conc 32.7 % (32.0-36.0); Mean Corpuscular Hemoglobin 30.5 pg (27.0-34.0); Mean Corpuscular Volume 93.2 fL (80.0-100.0); Mean Platelet Volume 8.6 fL (7.0-11.0); Mono # (Auto) 0.9 th/mm3 (0.0-0.9); Mono % (Auto) 7.3 % (0.0-8.0); Neut # (Auto) 10.8 th/mm3 (1.8-7.7); Neut % (Auto) 82.6 % (16.0-70.0); Platelet Count 409 th/mm3 (150-450); Red Blood Count 4.27 mil/mm3 (4.00-5.30); Red Cell Distribution Width 13.8 % (11.6-17.2)
[2017-11-16 12:35] LABS: HDL Cholesterol 42.7 mg/dL (40.0-60.0)
[2017-11-16 12:36] LABS: Calcium 9.3 mg/dL (8.5-10.1); Carbon Dioxide 26.7 meq/L (21.0-32.0); Chol/HDL Ratio 2.71 Ratio; Potassium 4.8 meq/L (3.5-5.1)
[2017-11-16] MEDS: guaiFENesin 600 MG ER Tablet PO SCH (20:39)
[2017-11-17] MEDS: Levothyroxine 50 MCG Tablet PO SCH (05:37)
[2017-11-17 06:30] VITALS: BP 113/64; TEMP 97.4; O2SAT 93
--- NOTE | 2017-11-17 08:14 | P.PN ---
Subjective Interval history: Follow-up visit for Xanax OD requiring intubation and mechanical ventilation. Patient is seen and examined in bed, does not appear to be any distress. Mild tachypnea noted on exam, improved compared to yesterday. This morning she states she does not feel well. She complains of chest pain, states this pain has been there since yesterday. Unable to further describe pain characteristic or consistency. She denies any N/V/D, cough or SOB. She makes no other complaints at this moment. Physical Exam Vital signs: Vital Signs 11/16/17 12:20 11/16/17 23:01 11/17/17 06:30 Temperature 36.3 C L Pulse Rate 108 H 78 84 Respiratory Rate 20 14 16 Blood Pressure 113/64 Pulse Oximetry 93 L Intake & Output 11/16/17 11/17/17 11/17/17 18:59 06:59 18:59 Intake Total 240 / 240 Balance 240 / 240 Intake: Oral 240 / 240 Other: # Voids 1 Narrative: GENERAL: Well-developed, well-nourished, elderly female resting in bed. SKIN: Warm and dry. HEAD: Atraumatic. Normocephalic. EYES: Pupils equal and round. No scleral icterus. No injection or drainage. ENT: No nasal bleeding or discharge. Mucous membranes pink and moist. NECK: Trachea midline. No JVD. CARDIOVASCULAR: Regular rate and rhythm. RESPIRATORY: No accessory muscle use. Mild tachypnea noted, improved compared to yesterday. No wheezing, crackles or rhonchi noted. GASTROINTESTINAL: Abdomen soft, non-tender, nondistended. + bowel sounds MUSCULOSKELETAL: Extremities without clubbing, cyanosis, or edema. No obvious deformities. Sternal tenderness with palpation. NEUROLOGICAL: Awake and alert oriented. No obvious cranial nerve deficits. Motor grossly within normal limits. 4/5 muscle strength in the arms and legs. Normal speech. Results - Labs CBC & Chem 7: 11/16/17 12:05 11/16/17 12:05 Laboratory Results - last 24 hr 11/16/17 11/16/17 12:05 12:05 WBC 13.0 H RBC 4.27 Hgb 13.0 Hct 39.8 MCV 93.2 MCH 30.5 MCHC 32.7 RDW 13.8 Plt Count 409 D MPV 8.6 Neut % (Auto) 82.6 H Lymph % (Auto) 8.9 L Ste[place]s % (Auto) 7.3 Eos % (Auto) 0.3 Baso % (Auto) 0.9 Neut # (Auto) 10.8 H Lymph # (Auto) 1.2 Stearns # (Auto) 0.9 Eos # (Auto) 0.0 Baso # (Auto) 0.1 WBC Differential . Differential Comment Auto diff final Sodium 137 Potassium 4.8 Chloride 103 Carbon Dioxide 26.7 Anion Gap 7 BUN 30 H Creatinine 0.84 Estimated GFR 66 L Random Glucose 158 H Calcium 9.3 Triglycerides 73 Cholesterol 116 L LDL Cholesterol, Calc 59 HDL Cholesterol 42.7 Cholesterol/HDL Ratio 2.71 - Imaging Impressions Chest X-Ray 11/16/17 00:00 CONCLUSION: Assessment and Plan - Plan 72-year-old female with past medical history significant for hypothyroidism, CAD, HLD, SVT, bipolar disorder, depression, and tobacco abuse who presented to [place] on 11/08 after she was found down at home on the kitchen floor with a bottle of Xanax nearby. Patient was received 2 mg of IM Narcan on the field without any improvement in GCS, when arrived to ER was emergently intubated for airway protection and admitted to ICU for mechanical ventilation. Patient was subsequently extubated on 11/15 and cleared for inpatient psychiatry. She is now been admitted to medical psychiatry unit, [facility] consulted to assist with ongoing medical management. Xanax overdose Depression/bipolar disorder -Treatment plan per psychiatry -Patient is awake, alert, oriented and cooperative. 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 Small right occipital subarachnoid hemorrhage. - MRA brain/neck revealed no acute findings - EEG revealed mild to moderate encephalopathy. Sleep state. No epileptiform activity. - Repeat brain CT 11/12 - widening of the cortical sulci and some expansion of the extra axial spaces over the frontal lobes likely related to atrophy Cough/SOB (extubated 11/15) - On 3L NC with sats 93% -Chest x-ray negative, WBC 12.0-->13.0, afebrile - Continue scheduled breathing treatments as well as as needed treatments -Mucinex, encourage incentive spirometer and out of bed. - Tachypnea improved compared to yesterday, continue to monitor closely - D-dimmer 5.72, check VQ scan to r/o PE Atypical chest pain - CP complaints this a.m, patient with +Hx CAD and stenting in past (cardiac catheterization performed on 10/02/11 with 50% stenosis of the LAD distal to small diagonal branch and 25-40% disease proximal RCA; mild CAD which was medically managed.) - Troponin 0.68, EKG with no noted ST changes noted, similar to prior EKG - Patient given ASA rectally due to nausea, Nitro paste, and cardiology consult. - Spoke with to discuss patient, keep NPO, transfer to medical floor , trend troponin, possible Lexiscan today. - CP improved after nitro paste per nurse. Hx SVT HTN HLD - continue p.o. Lopressor, will need to verify statin dose at home. - continue monitoring vitals and adjusting medications accordingly Hypothyroidism -Continue Synthroid DVT prophylaxis-ambulation Discussed Condition With: Discussed with patient, RN, , and Dr. Meyer.
[2017-11-17] MEDS ORDERED: Sertraline 50 MG Tablet PO SCH (09:00)
[2017-11-17] MEDS: Metoprolol Tartrate 25 MG Tablet PO SCH (09:04)
[2017-11-17] MEDS: guaiFENesin 600 MG ER Tablet PO SCH (09:05)
[2017-11-17 10:57] LABS: Hemoglobin A1c 5.5 % (4.3-6.0)
[2017-11-17] MEDS ORDERED: Aspirin 300 MG Supp RECTAL ONE ×2 (12:00)
[2017-11-17 12:42] VITALS: PULSE 85; RESP 13
--- NOTE | 2017-11-17 13:02 | MB ---
cc: Zheng Meyer MD DATE: 11/17/2017 REASON FOR CONSULTATION: Chest pain, abnormal troponin level. HISTORY OF PRESENT ILLNESS: The patient is a 72-year-old white female with a history of hyperlipidemia, coronary artery disease, hypothyroidism, bipolar disorder, who was admitted to the Psychiatric Unit with depression. In the psychiatric unit, she has related a history of chest pain, most recently yesterday. The patient states she has had substernal chest pain for "many years." The chest discomfort is substernal in location, occasionally associated with shortness of breath without nausea or diaphoresis. The patient describes the chest pain as "sharp" and yesterday lasted at least 2 hours in a constant fashion. She has noted no definite relationship of the chest pains to exertion. For the most part, she is sedentary. The patient denies pleurisy, dizziness, syncope, near syncope, pedal edema, paroxysmal nocturnal dyspnea. Chronically she has occasional skipped beat palpitations. PAST MEDICAL HISTORY: 1. Hyperlipidemia. 2. Coronary artery disease with cardiac catheterization 10/02/[address] Sabrina Aguilar, showing 50% LAD lesion (unclear location in the LAD), 25-40% proximal right coronary artery disease, ejection fraction 60%, normal left main and left circumflex. 3. Hypothyroidism. 4. Bipolar disorder. CURRENT CARDIAC MEDICATIONS: Metoprolol tartrate 12.5 mg p.o. b.i.d. ALLERGIES: LAMICTAL. FAMILY HISTORY: Noncontributory. SOCIAL HISTORY: The patient smokes about a pack of cigarettes per day. She denies alcohol abuse. REVIEW OF SYSTEMS: As in the history of present illness, otherwise negative or noncontributory. She also denies headache, abdominal pain, melena, dyspepsia, bright red blood per rectum, fevers, cough, wheezing. PHYSICAL EXAMINATION: VITAL SIGNS: Her blood pressure 113/64 with a pulse of 84, respirations 13. GENERAL: She is a well-developed, thin white female, in no acute distress. NECK: Jugular venous pressure is normal. Carotid pulses are 2+ bilaterally and without bruits. CHEST: Reveals clear lungs martinez. CARDIAC: She has a regular rhythm and rate without S3, S4, or murmur. ABDOMEN: She has a soft, nontender abdomen. Bowel sounds are present. There is no definite hepatosplenomegaly. EXTREMITIES: Reveals no clubbing, cyanosis or edema. LABORATORY DATA: Includes potassium 4.8, BUN 30, creatinine 0.84, troponin 0.68. Total cholesterol 116, LDL 59, HDL 43, triglycerides 73. WBC 13.0, hemoglobin 13.0, platelets 409. EKG shows normal sinus rhythm, left anterior fascicular block, incomplete right bundle branch block, poor R-wave progression. Chest x-ray shows no acute disease. IMPRESSION: Slightly abnormal troponin level, somewhat atypical chest pains chronically for several years in this 72-year-old white female with a history of coronary artery disease, hyperlipidemia, hypothyroidism, bipolar disorder. EKG shows no acute ST segment or T-wave changes. The pattern of her chest pains overall has not increased in severity or frequency compared to a few years ago. Initial troponin level is minimally elevated. There is no definite evidence for congestive heart failure. From what I can gather from a cardiac catheterization report from 2011, she did have mild to moderate disease at that time. RECOMMENDATIONS: 1. Await subsequent cardiac enzymes; will recheck her troponin level this afternoon. 2. If her troponin levels remain only minimally elevated, recommend checking a Lexiscan nuclear stress test. Would perform cardiac catheterization only if she has severe and/or extensive ischemia. 3. We will followup as needed for any major ischemia demonstrated on nuclear stress testing or any substantial increase in troponin level. MD ALVINO Allison/ABDULAZIZ , 12:38 PM , 12:48 PM JASS
--- NOTE | 2017-11-17 14:45 | ECG ---
Date Performed: 11/17/2017 Time Performed: 08:24:13 PTAGE: 72 years EKG: Sinus rhythm PATTERN CONSISTENT WITH PULMONARY DISEASE INCOMPLETE RIGHT BUNDLE BRANCH BLOCK LEFT ANTERIOR FASCICU LAR BLOCK Since previous tracing, no significant change noted ABNORMAL ECG PREVIOUS TRACING : 11/15/2017 19.03 DOCTOR: Haile Johnson Interpretating Date/Time 11/17/2017 14:44:57
--- NOTE | 2017-11-17 18:03 | NM ---
EXAM DATE: 11/17/2017 5:58 PM EDT AGE/SEX: 72 years / Female INDICATIONS:Abnormal EKG. . Chest pain with dyspnea. CLINICAL DATA: This is the patient's initial encounter. Patient reports that signs and symptoms have been present for > 1 year and indicates a pain score of 4/10. MEDICAL/SURGICAL HISTORY: Hypercholesterolemia. None. Cardiac catherization. COMPARISON: No prior exams available for comparison. DOSE: 8.5 mCi Tc 99m Myoview at stress 26.3 mCi [id number] at rest 0.4 mg Lexiscan STRESS SYMPTOMS: Dyspnea. EJECTION FRACTION: 62 % TECHNIQUE: The patient underwent pharmacologic stress with infusion of prescribed dose. Continuous ECG tracing was monitored during stress. Gated SPECT imaging was performed after stress and conventi onal SPECT imaging was performed at rest. The examination was performed on a SPECT/CT scanner, both attenuation and non-corrected datasets were reviewed. FINDINGS: Distribution: The maximum perfused segment at stress is in the posterior basal wall. Perfusion Study: The pattern of perfusion at stress is within normal limits. Gated Study: There are intact wall motion and wall thickening without hypokinetic or dyskinetic segm ents. The ejection fraction is calculated at 62%. RISK CATEGORY: Low (<1% Annual Motality Rate) CONCLUSION: 1. No appreciable ischemia. Electronically signed by: Jen Pendleton MD 11/17/2017 6:02 PM EDT
== END 2017-11-17 13:50 | disposition short-term general hospital (02) ==
LOC: H4EA 21:09
PROVIDERS: ADMIT Psychiatry & Neurology Psychiatry; ATTEND Psychiatry & Neurology Psychiatry

== ENCOUNTER 2017-11-17 12:18 | Inpatient (IN) ==
[2017-11-17] MEDS ORDERED: Bisacodyl 10 MG Supp RECTAL PRN (14:05)
[2017-11-17] MEDS ORDERED: Acetaminophen 325 MG Tablet PO PRN (14:05)
--- NOTE | 2017-11-17 14:19 | P.HP ---
History of Present Illness Service: [facility] Primary Care Physician: No Primary Care Physician Chief Complaint: Chest pain History of Present Illness: 72-year-old female with past medical history significant for hypothyroidism, CAD, HLD, SVT, bipolar disorder, depression, and tobacco abuse who presented to [facility] on 11/08 after she was found down at home on the kitchen floor with a bottle of Xanax nearby. Bottle of Xanax had been filled in August of this year with a quantity of 90 tablets of 0.5 mg with only 20 tablets remaining in bottle. She received 2 mg of IM Narcan in the field without improvements in mental status, GCS less than 8 on arrival. She was emergently intubated for airway protection in the emergency department. Head CT scan showed no acute finding. Chest x-ray with ET tube 1 cm above the yocasta and lungs clear. She was admitted to ICU while mechanically ventilated and neurology was consulted. Neurology believed slow recovery was secondary to hypersomnolence and encephalopathy from Xanax overdose. Patient was extubated on 11/15 and admitted to inpatient medical psychiatry unit. [facility] followed patient while she was in psych unit and she was treated with scheduled breathing treatments for tachypnea, x-ray was negative and patient was started on scheduled Mucinex p.o. Patient was seen and evaluated this morning with noted mild tachypnea, slight improvement compared to yesterday. She reported this morning that she did not feel well and complained of chest pain, states that this pain had started the day before. She was unable to provide characteristic or consistency for pain. Associated symptoms included nausea. Stat EKG, troponin, and d-dimer were ordered. D-dimer was elevated at 5.72, troponin was 0.68, EKG with incomplete right bundle branch block, anterior fascicular block possibly consistent with pulmonary disease pattern. Patient received 300 mg of aspirin rectally as well as nitro 2% 1 inch topically with some chest pain relief per nurse. Discussed with on-call air pollution analyst Dr. Meyer who recommended continue trending troponin levels and transferring to medical floor. - Diagnosis (1) Chest pain (2) Elevated troponin (3) Medication overdose (4) Bipolar 1 disorder Inpatient Certification: I certify that the inpatient services were ordered in accordance with Medicare regulations governing the order. This includes certification that hospital inpatient services are reasonable and necessary and in the case of services not specified as inpatient-only under 42 CFR 419.22(n), that they are appropriately provided as inpatient services in accordance to with the 2-midnight benchmark under 43 CFR 412.3(e) Estimated Total Length of Stay (Days): 2 Plans for Post Hospital Care: Not yet determined [facility] - History History Provided By: Medical Record - Medical History Medical History: Medical History (Last Reviewed 11/16/17 @ 09:24 by Betty Dewitt) History of left heart catheterization (LHC) (Acute) Abdominal lipoma (Acute) SVT (supraventricular tachycardia) (Acute) Hypothyroid (Acute) HLD (hyperlipidemia) (Acute) CAD (coronary artery disease) (Acute) Bipolar 1 disorder, depressed (Acute) - Surgical History Surgical History: Surgical History (Last Reviewed 11/16/17 @ 09:24 by Betty Dewitt) History of skin graft (Acute) - Family History Family History: Family History (Last Reviewed 11/16/17 @ 09:24 by Betty Dewitt) Other Adopted - Tobacco History Smoking Status: Smoker, status unknown Tobacco Type: Cigarettes Years Smoked: 57 - Alcohol History How Often Do You Have a Drink Containing Alcohol: Unable to Obtain - Substance Use History Substance History: No History of Abuse - Travel History History of Recent Travel: No (unable to obtain) Medications and Allergies Active Medications: Active Medications Acetaminophen (Tylenol) 650 mg PO Q4H PRN PRN Reason: Temp > 100.4 Al Hydroxide/Mg Hydroxide (Milk Of Magnesia Liq) 30 ml PO Q12H PRN PRN Reason: Mild Constipation Albuterol (Duoneb Neb (Prn)) 1 ampul NEB Q4HR NEB PRN PRN Reason: SHORTNESS OF BREATH/WHEEZING Albuterol (Duoneb Neb ([place])) 1 ampul NEB Q6HR WHILE AWAKE NEB [place] Aspirin (Aspirin) 325 mg PO DAILY [facility] Bisacodyl (Dulcolax Supp) 10 mg RECTAL DAILY PRN PRN Reason: SEVERE CONSITIPATION Guaifenesin (Mucinex Er) 600 mg PO BID [facility] Sodium Chloride (Ns Inj) 1,000 mls @ 84 mls/hr IV.CONT .[id number] [place] Lactulose (Lactulose Liq) 30 ml PO DAILY PRN PRN Reason: SEVERE CONSITIPATION Lansoprazole (Prevacid Solutab) 30 mg NG/OG DAILY [facility] Levetiracetam (Keppra) 500 mg PO BID [facility] Levothyroxine Sodium (Synthroid) 50 mcg PO DAILY@0600 [facility] Oberlin Carbonate (Oberlin Carbonate) 300 mg PO BID [facility] Metoprolol Tartrate (Lopressor) 12.5 mg PO BID [facility] Ondansetron HCl (Zofran Odt) 4 mg PO Q4H PRN PRN Reason: NAUSEA OR VOMITING Senna/Docusate Sodium (Steph-Colace) 1 tab PO BID [facility] Sennosides (Senokot) 17.2 mg PO Q12H PRN PRN Reason: Moderate Constipation Sertraline HCl (Zoloft) 25 mg PO DAILY [facility] Sodium Chloride (Ns Flush) 2 ml IV.FLUSH PRN PRN PRN Reason: FLUSH AFTER USING IV ACCESS Allergies Allergy/AdvReac Type Severity Reaction Status Date / Time lamotrigine Allergy Unknown Rash Verified 11/16/17 02:12 Home Medications Medication Instructions Recorded Confirmed Type Unable to Obtain Home Meds 11/08/17 11/08/17 History Exam Narrative: GENERAL: Well-developed, well-nourished, elderly female resting in bed. SKIN: Warm and dry. HEAD: Atraumatic. Normocephalic. EYES: Pupils equal and round. No scleral icterus. No injection or drainage. ENT: No nasal bleeding or discharge. Mucous membranes pink and moist. NECK: Trachea midline. No JVD. CARDIOVASCULAR: Regular rate and rhythm. RESPIRATORY: No accessory muscle use. Mild tachypnea noted, improved compared to yesterday. No wheezing, crackles or rhonchi noted. GASTROINTESTINAL: Abdomen soft, non-tender, nondistended. + bowel sounds MUSCULOSKELETAL: Extremities without clubbing, cyanosis, or edema. No obvious deformities. Sternal tenderness with palpation. NEUROLOGICAL: Awake and alert oriented. No obvious cranial nerve deficits. Motor grossly within normal limits. 4/5 muscle strength in the arms and legs. Normal speech. Caprini VTE Risk Assessment Caprini VTE Risk Assessment: Moderate/High Risk (score >= 2) Caprini Risk Assessment Model: Point Value = 1 Point Value = 2 Point Value = 3 Point Value = 5 Age 41-60 Minor surgery BMI > 25 kg/m2 Swollen legs Varicose veins or History of unexplained or recurrent spontaneous Oral contraceptives or hormone replacement Sepsis (< 1 month) Serious lung disease, including pneumonia (< 1 month) Abnormal pulmonary function Acute myocardial infarction Congestive heart failure (< 1 month) History of inflammatory bowel disease Medical patient at bed rest Age 61-74 Arthroscopic surgery Major open surgery (> 45 min) Laparoscopic surgery (> 45 min) Malignancy Confined to bed (> 72 hours) Immobilizing plaster cast Central venous access Age >= 75 History of VTE Family history of VTE Factor V Leiden Prothrombin [id number] Lupus anticoagulant Anticardiolipin antibodies Elevated serum homocysteine Heparin-induced thrombocytopenia Other congenital or acquired thrombophilia Stroke (< 1 month) Elective arthroplasty Hip, pelvis, or leg fracture Acute spinal cord injury (< 1 month) Prophylaxis Regimen: Total Risk Factor Score Risk Level Prophylaxis Regimen 0-1 Low Early ambulation 2 Moderate Order ONE of the following: *Sequential Compression Device (SCD) *Heparin 5000 units SQ BID 3-4 Higher Order ONE of the following medications: *Heparin 5000 units SQ TID *Enoxaparin/Lovenox 40 mg SQ daily (WT < 150 kg, CrCl > 30 mL/min) *Enoxaparin/Lovenox 30 mg SQ daily (WT < 150 kg, CrCl > 10-29 mL/min) *Enoxaparin/Lovenox 30 mg SQ BID (WT < 150 kg, CrCl > 30 mL/min) AND/OR *Sequential Compression Device (SCD) 5 or more Highest Order ONE of the following medications: *Heparin 5000 units SQ TID (Preferred with Epidurals) *Enoxaparin/Lovenox 40 mg SQ daily (WT < 150 kg, CrCl > 30 mL/min) *Enoxaparin/Lovenox 30 mg SQ daily (WT < 150 kg, CrCl > 10-29 mL/min) *Enoxaparin/Lovenox 30 mg SQ BID (WT < 150 kg, CrCl > 30 mL/min) AND *Sequential Compression Device (SCD) Assessment and Plan - Assessment (1) Chest pain Code(s): R07.9 - Chest pain, unspecified Status: Acute (2) Elevated troponin Code(s): R74.8 - Abnormal levels of other serum enzymes Status: Acute (3) Medication overdose Code(s): T50.901A - Poisoning by unspecified drugs, medicaments and biological substances, accidental (unintentional), initial encounter Status: Acute (4) Bipolar 1 disorder Code(s): F31.9 - Bipolar disorder, unspecified Status: Chronic - Plan 72-year-old female with past medical history significant for hypothyroidism, CAD, HLD, SVT, bipolar disorder, depression, and tobacco abuse who presented to [facility] on 11/08 after she was found down at home on the kitchen floor with a bottle of Xanax nearby. Patient was intubated for airway protection and admitted to ICU for mechanical ventilation. Patient was subsequently extubated on 11/15 and cleared for inpatient psychiatry. While she was in inpatient rehab complained of chest pain with positive troponin, contacted cardiology who recommended transfer to medical floor. Atypical chest pain - CP complaints this a.m, patient with +Hx CAD and stenting in past (cardiac catheterization performed on 10/02/11 with 50% stenosis of the LAD distal to small diagonal branch and 25-40% disease proximal RCA; mild CAD which was medically managed.) - Troponin 0.68, EKG with no noted ST changes noted, similar to prior EKG - Patient given ASA rectally due to nausea, Nitro paste, and cardiology consult. - Spoke with to discuss patient, keep NPO (IVF for gently hydration) , monitor on medical floor, trend troponin and CK, possible Lexiscan today if troponin remains only minimally elevated. Cardiac catheterization only if she has severe and/or excessive ischemia. - CP improved after nitro paste per nurse. Continue ASA daily and nitro every 6 hours Cough/SOB (extubated 11/15) - On 3L NC with sats 93% -Chest x-ray negative, WBC 12.0-->13.0, afebrile - Continue scheduled breathing treatments as well as as needed treatments -Mucinex, encourage incentive spirometer and out of bed. - Tachypnea improved compared to yesterday, continue to monitor closely - D-dimmer 5.72, check VQ scan to r/o PE (hold off on contrast in case patient requires heart catheterization) Hx SVT HTN HLD - continue p.o. Lopressor, continue monitoring vitals and adjusting medications accordingly Hypothyroidism -Continue Synthroid Xanax overdose Depression/bipolar disorder -Consult psychiatry for ongoing follow-up. DVT prophylaxis-subcu heparin Discussed Condition With: Discussed with patient, medical eating disorder psychologist, see [employer], , and Dr. Corrales
[2017-11-17] MEDS ORDERED: Regadenoson Inj 0.4 MG/5 ML Syringe IV.PUSH ONE (16:20)
[2017-11-17] MEDS: Sod Chloride 0.9% Inj 1,000 ML IV.CONT SCH (17:56)
[2017-11-17] MEDS: guaiFENesin 600 MG ER Tablet PO SCH (21:11)
[2017-11-17] MEDS: levETIRAcetam 500 MG Tablet PO SCH (21:11)
[2017-11-17] MEDS: Heparin - SQ 10,000 UNITS/ML Vial SQ SCH (21:11)
[2017-11-17] MEDS: Metoprolol Tartrate 25 MG Tablet PO SCH (21:11)
[2017-11-17] MEDS: Senna/Docusate Sodium 8.6/50 MG Tablet PO SCH (21:11)
[2017-11-17 21:13] LABS: Alanine Aminotransferase 34 U/L (10-53); Albumin 2.7 g/dL (3.4-5.0); Anion Gap 8 meq/L (5-15); Aspartate Aminotransferase 21 U/L (15-37); Blood Urea Nitrogen 30 mg/dL (7-18); Calcium 9.1 mg/dL (8.5-10.1); Carbon Dioxide 24.3 meq/L (21.0-32.0); Chloride 106 meq/L (98-107); Glomerular Filtration Rate 68 mL/min (>89); Glucose,Random 124 mg/dL (74-106); Magnesium 2.5 mg/dL (1.5-2.5); Potassium 4.1 meq/L (3.5-5.1); Sodium 138 meq/L (136-145)
[2017-11-17 21:16] LABS: Alkaline Phosphatase 81 U/L (45-117); Total Protein 6.8 g/dL (6.4-8.2)
[2017-11-17 21:22] LABS: Creatine Kinase 51 U/L (26-192)
[2017-11-17 21:26] LABS: Troponin I 0.68 ng/mL (0.02-0.05)
[2017-11-18 02:57] LABS: Calcium 8.8 mg/dL (8.5-10.1); Carbon Dioxide 23.8 meq/L (21.0-32.0); Potassium 4.1 meq/L (3.5-5.1)
[2017-11-18 03:00] LABS: Troponin I 0.49 ng/mL (0.02-0.05)
[2017-11-18] MEDS ORDERED: Levothyroxine 50 MCG Tablet PO SCH (06:00)
--- NOTE | 2017-11-18 08:44 | P.PN ---
Subjective Interval history: Follow-up for recent OD on Xanax and chest pain. Spoke with nurse who reports patient is scheduled to have heart cath done today at 2:30pm, discussed with nurse to clarify with . Patient had a negative Lexiscan yesterday and her troponin was stable with slight decrease. Patient is seen and examined this morning resting in bed and in no acute distress, she is pulling off her tele monitor and reports she dose not need this. She denies any further chest pain or nausea. States that years ago she had costal chondritis. She reports her breathing is stable and denies any cough or SOB. She reports that she will be discharged and she can follow-up with her own psychiatrist and therapist. She is aware of what occurred that brought her to the hospital and tells me that she was just "tired of struggling". States her son earlier this year. We discussed that if there is no further medical issues or plans for heart cath, she will be transferred back to psychiatry for further evaluation and treatment. Physical Exam Vital signs: Vital Signs 11/17/17 15:00 11/17/17 15:40 11/17/17 16:00 Temperature 36.8 C Pulse Rate 78 86 70 Respiratory Rate 24 Blood Pressure 102/59 L Pulse Oximetry 93 L 11/17/17 18:00 11/17/17 19:00 11/17/17 20:00 Temperature 36.6 C Pulse Rate 87 84 84 Respiratory Rate Blood Pressure 110/56 L Pulse Oximetry 95 11/17/17 21:00 11/17/17 22:00 11/17/17 23:00 Temperature Pulse Rate 85 86 86 Respiratory Rate Blood Pressure Pulse Oximetry 11/18/17 00:00 11/18/17 01:00 11/18/17 02:00 Temperature 36.5 C Pulse Rate 80 82 84 Respiratory Rate Blood Pressure Pulse Oximetry 95 11/18/17 03:00 11/18/17 04:00 11/18/17 05:00 Temperature 36.8 C Pulse Rate 85 81 82 Respiratory Rate Blood Pressure 129/65 Pulse Oximetry 95 11/18/17 06:00 Temperature Pulse Rate 84 Respiratory Rate Blood Pressure Pulse Oximetry Intake & Output 11/17/17 11/18/17 11/18/17 18:59 06:59 18:59 Intake Total 0 / 0 532 / 532 Output Total 250 / 250 500 / 500 Balance -250 / -250 32 / 32 Weight 47.8 kg 49 kg Intake: IV 292 / 292 NS Inj 1,000 ML @ 50 mls/hr IV. 292 / 292 CONT .Q20H [facility] Rx#:[id number] Oral 0 / 0 240 / 240 Output: Urine 250 / 250 500 / 500 Other: Date of Last Bowel Movement 11/15/17 Weight On Admission 47.8 kg Narrative: GENERAL: Well-developed, well-nourished, elderly female resting in bed. SKIN: Warm and dry. HEAD: Atraumatic. Normocephalic. EYES: Pupils equal and round. No scleral icterus. No injection or drainage. ENT: No nasal bleeding or discharge. Mucous membranes pink and moist. NECK: Trachea midline. No JVD. CARDIOVASCULAR: Regular rate and rhythm with PVC's on tele monitor. RESPIRATORY: No accessory muscle use. Clear throughout with no wheezing, crackles or rhonchi noted. GASTROINTESTINAL: Abdomen soft, non-tender, nondistended. + bowel sounds MUSCULOSKELETAL: Extremities without clubbing, cyanosis, or edema. No obvious deformities. Sternal tenderness with palpation. NEUROLOGICAL: Awake and alert oriented to time, place, location. No obvious cranial nerve deficits. Motor grossly within normal limits. 4/5 muscle strength in the arms and legs. Normal speech. Results - Labs CBC & Chem 7: 11/18/17 02:29 Laboratory Results - last 24 hr 11/17/17 11/18/17 20:48 02:29 Sodium 138 139 Potassium 4.1 4.1 Chloride 106 108 H Carbon Dioxide 24.3 23.8 Anion Gap 8 7 BUN 30 H 31 H Creatinine 0.82 0.74 Estimated GFR 68 L 77 L Random Glucose 124 H 122 H Calcium 9.1 8.8 Magnesium 2.5 Total Bilirubin 0.4 AST 21 ALT 34 Alkaline Phosphatase 81 Total Creatine Kinase 51 46 Troponin I 0.68 H* 0.49 H D Total Protein 6.8 D Albumin 2.7 L Assessment and Plan - Assessment (1) Chest pain Code(s): R07.9 - Chest pain, unspecified Status: Acute (2) Elevated troponin Code(s): R74.8 - Abnormal levels of other serum enzymes Status: Acute (3) Medication overdose Code(s): T50.901A - Poisoning by unspecified drugs, medicaments and biological substances, accidental (unintentional), initial encounter Status: Acute (4) Bipolar 1 disorder Code(s): F31.9 - Bipolar disorder, unspecified Status: Chronic - Plan 72-year-old female with past medical history significant for hypothyroidism, CAD, HLD, SVT, bipolar disorder, depression, and tobacco abuse who presented to [facility] on 11/08 after she was found down at home on the kitchen floor with a bottle of Xanax nearby. Patient was intubated for airway protection and admitted to ICU for mechanical ventilation. Patient was subsequently extubated on 11/15 and cleared for inpatient psychiatry. While she was in inpatient rehab complained of chest pain with positive troponin, contacted cardiology who recommended transfer to medical floor. Atypical chest pain - CP complaints this a.m, patient with +Hx CAD and stenting in past (cardiac catheterization performed on 10/02/11 with 50% stenosis of the LAD distal to small diagonal branch and 25-40% disease proximal RCA; mild CAD which was medically managed.) - Troponin 0.68, EKG with no noted ST changes noted, similar to prior EKG - Patient given ASA rectally due to nausea, Nitro paste. - Cardiology consulted, appreciate assistance. Lexiscan negative. No plans for cardiac catheterization. - Troponin 0.68-->0.49 - Denies chest pain today Cough/SOB (extubated 11/15) - On 3L NC with sats 95% -Chest x-ray negative, WBC 12.0-->13.0, afebrile - Continue scheduled breathing treatments as well as as needed treatments -Mucinex, encourage incentive spirometer and out of bed. - No tachypnea noted this morning. - D-dimmer 5.72, check VQ scan to r/o PE Hx SVT HTN HLD - continue p.o. Lopressor, continue monitoring vitals and adjusting medications accordingly Hypothyroidism -Continue Synthroid Xanax overdose Depression/bipolar disorder -Consult psychiatry for ongoing follow-up. DVT prophylaxis-subcu heparin Discharge from medical floor and readmitted back to medical psychiatry unit. Discussed Condition With: Discussed with patient and RN
[2017-11-18] MEDS ORDERED: Aspirin 325 MG Tablet PO SCH (09:00)
[2017-11-18] MEDS ORDERED: Sertraline 50 MG Tablet PO SCH (09:00)
[2017-11-18] MEDS: levETIRAcetam 500 MG Tablet PO SCH (09:37)
[2017-11-18] MEDS: Sod Chloride 0.9% Inj 1,000 ML IV.CONT SCH (09:37)
[2017-11-18] MEDS: Senna/Docusate Sodium 8.6/50 MG Tablet PO SCH (09:41)
[2017-11-18] MEDS: guaiFENesin 600 MG ER Tablet PO SCH (09:41)
[2017-11-18] MEDS: Metoprolol Tartrate 25 MG Tablet PO SCH (09:41)
[2017-11-18] MEDS: Heparin - SQ 10,000 UNITS/ML Vial SQ SCH (09:43)
--- NOTE | 2017-11-18 09:55 | P.DS ---
Date of admission: 11/17/17 15:17 Primary care physician: No Primary Care Physician Attending physician on discharge: Lui Alamo Anticipated date of discharge: 11/18/17 Brief History from admission: 72-year-old female with past medical history significant for hypothyroidism, CAD, HLD, SVT, bipolar disorder, depression, and tobacco abuse who presented to [facility] on 11/08 after she was found down at home on the kitchen floor with a bottle of Xanax nearby. Bottle of Xanax had been filled in August of this year with a quantity of 90 tablets of 0.5 mg with only 20 tablets remaining in bottle. She received 2 mg of IM Narcan in the field without improvements in mental status, GCS less than 8 on arrival. She was emergently intubated for airway protection in the emergency department. Head CT scan showed no acute finding. Chest x-ray with ET tube 1 cm above the yocasta and lungs clear. She was admitted to ICU while mechanically ventilated and neurology was consulted. Neurology believed slow recovery was secondary to hypersomnolence and encephalopathy from Xanax overdose. Patient was extubated on 11/15 and admitted to inpatient medical psychiatry unit. [facility] followed patient while she was in psych unit and she was treated with scheduled breathing treatments for tachypnea, x-ray was negative and patient was started on scheduled Mucinex p.o. Patient was seen and evaluated this morning with noted mild tachypnea, slight improvement compared to yesterday. She reported this morning that she did not feel well and complained of chest pain, states that this pain had started the day before. She was unable to provide characteristic or consistency for pain. Associated symptoms included nausea. Stat EKG, troponin, and d-dimer were ordered. D-dimer was elevated at 5.72, troponin was 0.68, EKG with incomplete right bundle branch block, anterior fascicular block possibly consistent with pulmonary disease pattern. Patient received 300 mg of aspirin rectally as well as nitro 2% 1 inch topically with some chest pain relief per nurse. Discussed with on-call police crime scene technician Dr. Meyer who recommended continue trending troponin levels and transferring to medical floor. DS: Diagnosis - Discharge Diagnosis (1) Chest pain Status: Acute (2) Elevated troponin Status: Acute (3) Medication overdose Status: Acute (4) Bipolar 1 disorder Status: Chronic DS: Summary Hospital Course: 72-year-old female with past medical history significant for hypothyroidism, CAD, HLD, SVT, bipolar disorder, depression, and tobacco abuse who presented to [facility] on 11/08 after she was found down at home on the kitchen floor with a bottle of Xanax nearby. Patient required intubation and mechanical ventilation due to respiratory failure following overdose. She was extubated on 11/15 and cleared for discharge to medical psychiatry unit. During her stay in medical psychiatry unit patient complained of chest pain with positive troponins. Cardiology services consulted and patient was transferred back to medical floor for further testing. She underwent Lexiscan 11/17 which was negative, now transferring back to medical psychiatry unit. Patient is seen and examined this morning resting in bed and in no acute distress, she is pulling off her tele monitor and reports she dose not need this. She denies any further chest pain or nausea. States that years ago she had costal chondritis. She reports her breathing is stable and denies any cough or SOB. She reports that she will be discharged and she can follow-up with her own psychiatrist and therapist. She is aware of what occurred that brought her to the hospital and tells me that she was just "tired of struggling". States her son earlier this year. Patient will once again be admitted to medical psychiatry unit for further psychiatric evaluation and clearance prior to discharge. - Time Spent with Patient Total time spent providing and/or coordinating discharge services: Less than 30 minutes - Quality: VTE Deep Vein Thrombosis/Pulmonary Embolism Present on Admission: No Exam Vital signs: Vital Signs 11/17/17 15:00 11/17/17 15:40 11/17/17 16:00 Temperature 36.8 C Pulse Rate 78 86 70 Respiratory Rate 24 Blood Pressure 102/59 L Pulse Oximetry 93 L 11/17/17 18:00 11/17/17 19:00 11/17/17 20:00 Temperature 36.6 C Pulse Rate 87 84 84 Respiratory Rate Blood Pressure 110/56 L Pulse Oximetry 95 11/17/17 21:00 11/17/17 22:00 11/17/17 23:00 Temperature Pulse Rate 85 86 86 Respiratory Rate Blood Pressure Pulse Oximetry 11/18/17 00:00 11/18/17 01:00 11/18/17 02:00 Temperature 36.5 C Pulse Rate 80 82 84 Respiratory Rate Blood Pressure Pulse Oximetry 95 11/18/17 03:00 11/18/17 04:00 11/18/17 05:00 Temperature 36.8 C Pulse Rate 85 81 82 Respiratory Rate Blood Pressure 129/65 Pulse Oximetry 95 11/18/17 06:00 11/18/17 09:07 Temperature Pulse Rate 84 84 Respiratory Rate 18 Blood Pressure Pulse Oximetry Intake & Output 11/17/17 11/18/17 11/18/17 18:59 06:59 18:59 Intake Total 0 / 0 532 / 532 Output Total 250 / 250 500 / 500 Balance -250 / -250 32 / 32 Weight 47.8 kg 49 kg Intake: IV 292 / 292 NS Inj 1,000 ML @ 50 mls/hr IV. 292 / 292 CONT .Q20H GRECIA Rx#:[id number] Oral 0 / 0 240 / 240 Output: Urine 250 / 250 500 / 500 Other: Date of Last Bowel Movement 11/15/17 Weight On Admission 47.8 kg Narrative: GENERAL: Well-developed, well-nourished, elderly female resting in bed. SKIN: Warm and dry. HEAD: Atraumatic. Normocephalic. EYES: Pupils equal and round. No scleral icterus. No injection or drainage. ENT: No nasal bleeding or discharge. Mucous membranes pink and moist. NECK: Trachea midline. No JVD. CARDIOVASCULAR: Regular rate and rhythm with PVC's on tele monitor. RESPIRATORY: No accessory muscle use. Clear throughout with no wheezing, crackles or rhonchi noted. GASTROINTESTINAL: Abdomen soft, non-tender, nondistended. + bowel sounds MUSCULOSKELETAL: Extremities without clubbing, cyanosis, or edema. No obvious deformities. Sternal tenderness with palpation. NEUROLOGICAL: Awake and alert oriented to time, place, location. No obvious cranial nerve deficits. Motor grossly within normal limits. 4/5 muscle strength in the arms and legs. Normal speech. Results Procedures completed during hospitalization: [employer] 11/17 Labs on day of discharge: Labs from last 24 hours 11/18/17 11/17/17 02:29 20:48 Sodium 139 138 Potassium 4.1 4.1 Chloride 108 H 106 Carbon Dioxide 23.8 24.3 Anion Gap 7 8 BUN 31 H 30 H Creatinine 0.74 0.82 Estimated GFR 77 L 68 L Random Glucose 122 H 124 H Calcium 8.8 9.1 Magnesium 2.5 Total Bilirubin 0.4 AST 21 ALT 34 Alkaline Phosphatase 81 Total Creatine Kinase 46 51 Troponin I 0.49 H D 0.68 H* Total Protein 6.8 D Albumin 2.7 L Discharge Plan - Discharge Disposition Patient Disposition: 63 Disc To Psych Care Facility - Discharge Condition Condition: Fair - Discharge Order Discharge Orders: Discharge Order (Routine); Ordered 11/18/17 Ordered By: Lolly Leonard - Physicians Team Primary Care Provider: Primary Care Elvira Tellez Attending Provider: Lui Alamo Other Providers: Zheng Meyer MD ; Gianni Benitez MD - Rxs /Orders / Referrals /Forms Prescriptions: New aspirin 81 mg Tablet,Delayed Release (Dr/Ec) 81 mg PO DAILY RF: 0 guaifenesin [Mucinex] 600 mg Tablet Extended Release 12hr 600 mg PO BID RF: 0 ipratropium-albuterol 0.5 mg-3 mg(2.5 mg base)/3 mL Solution For Nebulization 1 amp NEB Q4HR NEB PRN (Reason: Shortness Of Breath/Wheezing) RF: 0 ipratropium-albuterol 0.5 mg-3 mg(2.5 mg base)/3 mL Solution For Nebulization 1 amp NEB Q6HR WHILE AWAKE NEB RF: 0 lansoprazole [Prevacid SoluTab] 30 mg Tablet,Disintegrat, Delay Rel 30 mg NG/OG DAILY RF: 0 levetiracetam [Keppra] 500 mg Tablet 500 mg PO BID RF: 0 levothyroxine [Synthroid] 50 mcg Tablet 50 mcg PO DAILY@0600 RF: 0 lithium carbonate 300 mg Capsule 300 mg PO BID RF: 0 metoprolol tartrate 25 mg Tablet 12.5 mg PO BID RF: 0 sennosides-docusate sodium [Senna Plus] 8.6-50 mg Tablet 1 tab PO BID RF: 0 sertraline [Zoloft] 50 mg Tablet 25 mg PO DAILY RF: 0 No Action Unable to Obtain Home Meds Referrals: Primary Care Elvira Tellez [Primary Care Provider] - See Instructions
[2017-11-18 12:25] LABS: Troponin I 0.36 ng/mL (0.02-0.05)
--- NOTE | 2017-11-18 15:45 | P.PNPSY ---
Subjective Remarks: The patient was seen today for psychiatric reevaluation. The patient is calm, cooperative, reports that she feels a little bit better. Patient reports that she has been taking what she did, she feels regretful, however, she says that she does not know how she is going to continue with her life "if I do not have anybody, I lost my son and I lost my ", however, she says that she believes in God "I just want to continue with my life". She continues to report depression, but denies suicidal and homicidal ideation. Mental Status Examination Appearance: Appropriate Consciousness: Alert Orientation: x4 Motor Activity: Normal gait Speech: Unremarkable Language: Adequate Fund of Knowledge: Adequate Attention and Concentration: Adequate Memory: Unremarkable Mood: Sad Affect: Sad Thought Process & Associations: Intact Thought Content: Appropriate Hallucination Type: None Suicidal Ideation: No Suicidal Plan: No Suicidal Intention: No Homicidal Ideation: No Homicidal Plan: No Homicidal Intention: No Insight: Fair Judgment: Impulsive Assessment and Plan - Plan Plan: Estimated LOS: [] days Patient will continue psychiatric hospitalization for stabilization Justification for Continued Inpatient Stay: Continue current psychotropic regimen. Once patient is medically stable, the patient will come return to psychiatry to continue psychiatric stabilization. Brief supportive psychotherapy provided
--- NOTE | 2017-11-18 16:59 | P.PNPSY ---
Subjective Remarks: Patient is a 72-year-old woman, domiciled alone, with a past psychiatric history of bipolar disorder, previous psychiatric admissions no previous suicide attempts, with a past medical history significant for hyperlipidemia, coronary artery disease, hypothyroidism and seizure disorder who was admitted to the medical service due to recent suicide attempt via overdose with a 90 tab bottle of Xanax which 25 pills were left in the bottle who presented with a GCS of 4 and requiring intubation for medical stabilization which psychiatry was consulted for evaluation and was determined to require inpatient psychiatry hospitalization after medical stabilization and seen today for follow-up. Patient was found with sitter at bedside noted become cooperative. Patient states that she is feeling "fine" and states as well as he can be when things do not go your way". Patient states that her son had back in May which she is still grieving. Patient is alert and oriented 3. On recalling recent suicide attempt patient states that she had gotten "weary, tired" and that she been having suicide ideations "off and on " and worse recently prior to her suicide attempt. Patient states that she had been struggling to get through the day and states that she has had a dreadful life and just felt tired and now having survived her recent suicide attempt she states feeling time over being tired". Review of Systems All other systems reviewed negative except as stated in HPI Mental Status Examination Appearance: Appropriate Consciousness: Alert Orientation: x4 Motor Activity: Normal gait Speech: Unremarkable Language: Adequate Fund of Knowledge: Adequate Attention and Concentration: Adequate Memory: Unremarkable Mood: Sad Affect: Sad Thought Process & Associations: Intact Thought Content: Appropriate Hallucination Type: None Suicidal Ideation: No Suicidal Plan: No Suicidal Intention: No Homicidal Ideation: No Homicidal Plan: No Homicidal Intention: No Insight: Fair Judgment: Impulsive Assessment and Plan - Assessment (1) Bipolar 1 disorder, depressed Code(s): F31.9 - Bipolar disorder, unspecified Status: Acute - Plan Plan: I have seen and examined this patient, reviewed the documentation, discussed personally with Dr. Benitez, and I agree and concur with his assessment and plan. Consult appreciated. Justification for Continued Inpatient Stay: At risk for further decompensation if at lower level of care.
--- NOTE | 2017-11-18 22:04 | ECG ---
Date Performed: 11/17/2017 Time Performed: 18:02:14 PTAGE: 72 years EKG: Sinus rhythm with PVC(s) Left axis deviation Incomplete RBBB Right ventricular hypertrophy Anteroseptal T wave ch anges may be due to hypertrophy and/or ischemia Abnormal ECG PREVIOUS TRACING : 11/17/2017 08.24 Since the previous tracing, no significant change noted DOCTOR: Jett Marrero Interpretating Date/Time 11/18/2017 22:01:58
== END 2017-11-18 20:37 ==
LOC: HCPC 15:17
PROVIDERS: ADMIT Family Medicine; ATTEND Family Medicine
DX: Z79.51 Long term (current) use of inhaled steroids; Z79.899 Other long term (current) drug therapy; E03.9 Hypothyroidism, unspecified; Z72.0 Tobacco use; Z79.82 Long term (current) use of aspirin; E78.5 Hyperlipidemia, unspecified; R07.89 Other chest pain; F31.9 Bipolar disorder, unspecified; T42.4X1A Poisoning by benzodiazepines, accidental (unintentional), initial encounter; I25.10 Atherosclerotic heart disease of native coronary artery without angina pectoris
CPT/HCPCS: 80048; 80053; 82550; 83735; 84484; 93005; 93017; 94640; 94665; J1644; J2785; J7030

== ENCOUNTER 2017-11-18 19:16 | Inpatient (IN) ==
[2017-11-19] MEDS: Senna/Docusate Sodium 8.6/50 MG Tablet PO SCH ×3 (07:14→20:35)
[2017-11-19] MEDS: levETIRAcetam 500 MG Tablet PO SCH ×3 (07:14→20:35)
[2017-11-19] MEDS: guaiFENesin 600 MG ER Tablet PO SCH ×3 (07:14→20:35)
[2017-11-19] MEDS: Metoprolol Tartrate 25 MG Tablet PO SCH ×3 (07:14→20:35)
[2017-11-19] MEDS: Levothyroxine 50 MCG Tablet PO SCH (07:15)
[2017-11-19] MEDS: Sertraline 50 MG Tablet PO SCH (09:20)
--- NOTE | 2017-11-19 11:46 | P.CON ---
History of Present Illness Service: Hospitalist Consult date: 11/19/17 Requesting Physician: Brad Oseguera Reason for Consult: Medical management Primary Care Provider: No Primary Care Physician Chief Complaint: Chest pain History of Present Illness: 72-year-old female with past medical history significant for hypothyroidism, CAD, HLD, SVT, bipolar disorder, depression, and tobacco abuse who presented to [facility] on 11/08 after she was found down at home on the kitchen floor with a bottle of Xanax nearby. Patient required intubation and mechanical ventilation due to respiratory failure following overdose. She was extubated on 11/15 and cleared for discharge to medical psychiatry unit. During her stay in medical psychiatry unit patient complained of chest pain with positive troponins. Cardiology services consulted and patient was transferred back to medical floor for further testing. She underwent Lexiscan 11/17 which was negative; medical management/hospitalist signed off and patient was transferred back to medical psychiatry unit. Hospitalist reconsulted by psychiatry for medical management due to patient's continued complaints of chest pain Patient is seen lying comfortably in bed. She tells me that she feels fine and denies any chest pain or shortness of breath; cannot give me any history of her previous chest pain. Denies nausea vomiting or diarrhea. Recently came back from rec room. Has no complaints or concerns at this time. Seems depressed and looks away frequently during conversation; answers are short and limited Review of Systems All other systems reviewed negative except as stated in HPI PMFSH - History History Provided By: Medical Record - Medical History Medical History: Medical History (Last Reviewed 11/19/17 @ 14:41 by CISCO Rush) History of left heart catheterization (LHC) (Acute) Abdominal lipoma (Acute) SVT (supraventricular tachycardia) (Acute) Hypothyroid (Acute) HLD (hyperlipidemia) (Acute) CAD (coronary artery disease) (Acute) Bipolar 1 disorder, depressed (Acute) - Surgical History Surgical History: Surgical History (Last Reviewed 11/19/17 @ 14:41 by CISCO Rush) History of skin graft (Acute) - Family History Family History: Family History (Last Reviewed 11/19/17 @ 14:41 by CISCO Rush) Other Adopted - Tobacco History Second Hand Smoke Exposure: No Smoking Status: Smoker, status unknown Tobacco Type: Cigarettes Years Smoked: 57 - Alcohol History How Often Do You Have a Drink Containing Alcohol: Unable to Obtain - Substance Use History Substance History: No History of Abuse - Travel History History of Recent Travel: No (unable to obtain) Medications and Allergies Active Medications: Active Medications Albuterol (Duoneb Neb (Prn)) 1 ampul NEB Q4HR NEB PRN PRN Reason: SHORTNESS OF BREATH Albuterol (Duoneb Neb ([place])) 1 ampul NEB Q6HR WHILE AWAKE NEB ON LICENSE OF [facility] Last Admin: 11/19/17 08:02 Dose: 1 ampul Aspirin (Aspirin Chew) 81 mg PO DAILY ON LICENSE OF [facility] Last Admin: 11/19/17 09:20 Dose: 81 mg Guaifenesin (Mucinex Er) 600 mg PO BID ON LICENSE OF [facility] Last Admin: 11/19/17 09:21 Dose: 600 mg Levetiracetam (Keppra) 500 mg PO BID ON LICENSE OF [facility] Last Admin: 11/19/17 09:20 Dose: 500 mg Levothyroxine Sodium (Synthroid) 50 mcg PO DAILY@0600 ON LICENSE OF [facility] Last Admin: 11/19/17 07:15 Dose: 50 mcg [place]burn Carbonate (Shelburn Carbonate) [facility] Last Admin: 11/19/17 09:20 Dose: 300 mg Metoprolol Tartrate (Lopressor) 12.5 mg PO BID ON LICENSE OF [facility] Last Admin: 11/19/17 09:20 Dose: 12.5 mg Miscellaneous (Pill Splitter) 1 each OTHER UNSCH PRN PRN Reason: PILL SPIT Senna/Docusate Sodium (Steph-Colace) 1 tab PO BID ON LICENSE OF [facility] Last Admin: 11/19/17 09:20 Dose: 1 tab Sertraline HCl (Zoloft) 25 mg PO DAILY ON LICENSE OF [facility] Last Admin: 11/19/17 09:20 Dose: 25 mg Allergies Allergy/AdvReac Type Severity Reaction Status Date / Time lamotrigine Allergy Unknown Rash Verified 11/16/17 02:12 Physical Exam Vital signs: Vital Signs 11/19/17 06:12 11/19/17 08:04 Temperature 94.4 F L Pulse Rate 86 84 Respiratory Rate 16 18 Blood Pressure 122/69 Pulse Oximetry 93 L Intake & Output 11/18/17 11/19/17 11/19/17 18:59 06:59 18:59 Intake Total 360 / 360 Balance 360 / 360 Intake: Oral 360 / 360 Oral Supplement 0 / 0 Other: # Voids 2 # Bowel Movements 0 Narrative: GENERAL: Well-nourished, well-developed adult female in no obvious distress. SKIN: Warm and dry. HEAD: Atraumatic. Normocephalic. CARDIOVASCULAR: Regular rate and rhythm. RESPIRATORY: No accessory muscle use. Clear to auscultation. Breath sounds equal bilaterally. GASTROINTESTINAL: Abdomen soft, non-tender, distended. Positive bowel sounds. MUSCULOSKELETAL: Extremities without clubbing, cyanosis, or edema. No obvious deformities. NEUROLOGICAL: Awake and alert. No obvious cranial nerve deficits. Motor grossly within normal limits. Normal speech. PSYCHIATRIC: Appears very depressed Assessment and Plan - Plan 72-year-old female with past medical history significant for hypothyroidism, CAD, HLD, SVT, bipolar disorder, depression, and tobacco abuse who presented to [facility] on 11/08 after she was found down at home on the kitchen floor with a bottle of Xanax nearby. Patient was intubated for airway protection and admitted to ICU for mechanical ventilation. Patient was subsequently extubated on 11/15 and cleared for inpatient psychiatry. Has had repeated complaint of chest pain -recent workup was negative. Atypical chest pain -Recent workup for same was negative. Denies chest pain on exam today. -Likely related to depression/anxiety Hypertension -Continue Lopressor Hypothyroidism -Continue levothyroxine Pending repeat labs. DVT prophylaxis: Patient is ambulatory Discussed with: Patient and nurse
--- NOTE | 2017-11-19 16:31 | P.PNPSY ---
Subjective Remarks: Patient seen for follow, chart reviewed. Initial H&P was done on 11/16/17 as noted below: 11/16/2007 The patient is a 72-year-old woman, , domiciled alone in [place], supported by Social Security, per family and social support, with psychiatric history of bipolar disorder, for previous psychiatric hospitalizations, the last hospitalization was 13 years ago, she has an outpatient established psychiatric care with Dr. Grijalva in [place], she is in lithium 300 mg twice daily, Zoloft 25 mg, Xanax 0.5 mg twice daily, gabapentin 300 mg 3 times daily, with past medical history of hyperlipidemia, mild coronary artery disease on left heart cath 2011, hypothyroidism, ongoing tobacco abuse who presented to [facility] emergency department with altered mental status after she was found down in her home near nearly empty Xanax bottle. Her neighbor reported that she frequently speaks of suicidal intent. GCS was 4 upon arrival. She was intubated for airway protection by Dr. Redman in the emergency department. She prescription bottle with Xanax 0.5 mg p.o. 3 times daily and a bottle of 90 was filled on 08/23/17. 21 pills are left in the bottle. Prior medication list also include lithium. Urine toxicology screen positive for benzodiazepines only. [place] level 0.8.Patient was intubated for airway protection. EtOH negative. Ammonia level normal. CT brain negative. Patient was consulted to psychiatry now that is extubated for assessment of suicidal attempt. On my psychiatric evaluation the patient is calm, superficially cooperative, communication is limited due to hoarseness. The patient was able to tell me that she has been feeling quite depressed since her son last July. She has being living with her now for several years, she has no family members, no friends, she has no reason to live for. She reports that today she feels a little bit much better mood [place], she has been thinking that if she did not is because "God wants me here", but she does report feeling hopeless, helpless, worthless, with increased anhedonia, and sense of abandonment. At this moment the patient was able to contract for safety and denied active suicidal ideation. Patient is fully oriented 3. No attention deficit, no fluctuation of consciousness present. No loosening of associations, no paranoia, no agitation, no aggressive behavior, no ideas of reference are present. The patient denies the use of alcohol and illegal drugs. 11/16/2017 the patient was seen today for psychiatric reevaluation. She is now transferred to the [facility] unit. On my psychiatric evaluation the patient states that she feels a little bit better today. Reports improved mood, even though she still feels quite depressed. She reports that she continues to be thinking that she thought that she was done in her life, that she really did not want to live anymore, but the fact that she still alive "might mean something to me". She reports hopelessness, helplessness, sense of abandonment , loneliness, decreased sleep at night, decreased energy, but she denies suicidal ideation at this moment. She is fully oriented 3, without attention deficit, no fluctuation of consciousness at this moment. PPH: The patient has history of bipolar disorder, 4 psychiatric hospitalizations , last hospitalization 30 years ago. Outpatient psychiatric care with Dr. Grijalva. She has been stable in lithium 300 mg. Zoloft 25 mg. Xanax 0.5 mg twice daily. Gabapentin 300 mg 3 times daily. The patient denies any previous suicidal attempts. PMH: Patient has medical history of hypothyroidism, CAD, seizures Substance history: The patient denies the use of illegal drugs or alcohol. Family history: Patient reports that her son was diagnosed with schizophrenia in the 20s Social history: The patient was born and raised in [place], she lives alone in [place], she is , supported by Social Security, her highest level of education is 2 years of college Patient was admitted to the medical floor after initial evaluation due to chest pain workup which patient was cleared medically and transferred back to the inpatient psychiatry unit today. Discussion nursing staff reported the patient noted to be ambulating on the unit, denying any suicide ideations today. Patient was found lying hospital bed noted to be calm, cooperative. Patient states that she is feeling "tired" but her mood has been feeling "great" although does report having occasional moments of feeling sad or depressed but states that is not present for most of the day. She states that she does not know where she is and that her friends during visitation had mentioned "things I do not remember" but was unable to recall it is things were. Patient states that she has been having some memory difficulties specifically surrounding her recent overdose. She also mentions having difficulty recalling when her son had actually but did remember having celebrated his birthday in April of this year. She states that she usually prays to help her from feeling sad or depressed. She denies any suicide ideation this time she states that she wants to be "an acid to others instead of her what I believe" S took time to talk about her support group which she runs through her sikh and wanted to continue this. Discussion about the treatment plan and goals as well as her current legal status here on the inpatient psychiatry was reviewed she acknowledged. Review of Systems All other systems reviewed negative except as stated in HPI Mental Status Examination Appearance: Appropriate Consciousness: Alert Orientation: Person, Place Motor Activity: Normal gait Speech: Unremarkable Language: Adequate Fund of Knowledge: Inadequate Attention and Concentration: Easily distracted Memory: Impaired (Surrounding events of recent overdose) Mood: Other ("Great") Affect: Sad Thought Process & Associations: Intact, Goal directed, Linear Thought Content: Appropriate Hallucination Type: None Delusion Type: None Suicidal Ideation: No Suicidal Plan: No Suicidal Intention: No Homicidal Ideation: No Homicidal Plan: No Homicidal Intention: No Insight: Fair Judgment: Impulsive Assessment and Plan - Assessment (1) Bipolar depression Code(s): F31.30 - Bipolar disorder, current episode depressed, mild or moderate severity, unspecified Status: Acute - Plan Plan: Estimated LOS: [] days Patient at this time continues with depressed mood although denying any suicide ideations today patient also has intermittent confusion surrounding recent events prior to her admission as well as currently which patient fluctuates with orientation. We will continue current treatment. We will continue to monitor mood and behavior. Hospitalist input appreciated. Discharge planning in progress. Justification for Continued Inpatient Stay: At risk for further decompensation if at lower level of care.
[2017-11-20] MEDS: guaiFENesin 600 MG ER Tablet PO SCH ×2 (09:15→20:22)
[2017-11-20] MEDS: Sertraline 50 MG Tablet PO SCH (09:15)
[2017-11-20] MEDS: Metoprolol Tartrate 25 MG Tablet PO SCH ×2 (09:16→20:22)
[2017-11-20] MEDS: Levothyroxine 50 MCG Tablet PO SCH (09:16)
[2017-11-20] MEDS: Senna/Docusate Sodium 8.6/50 MG Tablet PO SCH ×2 (09:16→20:22)
[2017-11-20 09:30] LABS: Chol/HDL Ratio 2.88 Ratio; HDL Cholesterol 39.8 mg/dL (40.0-60.0)
--- NOTE | 2017-11-20 10:14 | P.PN ---
Subjective Interval history: Patient is seen in break room. Tells me that she is having her "agitation pain " and points to mid chest. She tells me it only occurs when she is upset with people and she is mad at all the staff right now. Denies any shortness of breath. No nausea vomiting or diarrhea. Physical Exam Vital signs: Vital Signs 11/19/17 18:10 11/19/17 21:19 11/20/17 08:42 Temperature 98.1 F Pulse Rate 77 78 76 Respiratory Rate 16 18 24 Blood Pressure 123/58 L Pulse Oximetry 93 L Intake & Output 11/19/17 11/20/17 11/20/17 18:59 06:59 18:59 Intake Total 360 / 360 520 / 520 Balance 360 / 360 520 / 520 Intake: Oral 360 / 360 420 / 420 Oral Supplement 100 / 100 Other: # Voids 2 # Bowel Movements 0 Narrative: GENERAL: Well-nourished, well-developed adult female in no obvious distress. SKIN: Warm and dry. HEAD: Atraumatic. Normocephalic. CARDIOVASCULAR: Regular rate and rhythm. RESPIRATORY: No accessory muscle use. Clear to auscultation. Breath sounds equal bilaterally. GASTROINTESTINAL: Abdomen soft, non-tender, distended. Positive bowel sounds. MUSCULOSKELETAL: Extremities without clubbing, cyanosis, or edema. No obvious deformities. NEUROLOGICAL: Awake and alert. No obvious cranial nerve deficits. Motor grossly within normal limits. Normal speech. Results - Labs Laboratory Results - last 24 hr 11/20/17 11/20/17 08:33 08:33 Triglycerides 80 Cholesterol 115 L LDL Cholesterol, Calc 59 HDL Cholesterol 39.8 L Cholesterol/HDL Ratio 2.88 [place] 0.6 Assessment and Plan - Plan 72-year-old female with past medical history significant for hypothyroidism, CAD, HLD, SVT, bipolar disorder, depression, and tobacco abuse who presented to [facility] on 11/08 after she was found down at home on the kitchen floor with a bottle of Xanax nearby. Patient was intubated for airway protection and admitted to ICU for mechanical ventilation. Patient was subsequently extubated on 11/15 and cleared for inpatient psychiatry. Has had repeated complaint of chest pain -recent workup was negative. Atypical chest pain -Recent workup for same was negative. Denies chest pain on exam today. -Likely related to depression/anxiety Hypertension -Continue Lopressor Hypothyroidism -Continue levothyroxine Pending repeat labs - ordered 11/19. DVT prophylaxis: Patient is ambulatory Discussed with: Patient and nurse
--- NOTE | 2017-11-20 16:10 | P.PNPSY ---
Subjective Remarks: Patient seen for follow up; chart reviewed. Discussion with nursing staff reported patient was tearful this morning. Patient was found lying on hospital bed for interview but was noted to have participating in groups earlier in the morning. 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 Patient reports tolerating medications well, had some difficulty recalling when visitors had come to see her. Patient noted to be somewhat sarcastic and irritable during interview. Patient denying any SI or HI AVH or delusions at this time. Review of Systems All other systems reviewed negative except as stated in HPI Mental Status Examination Appearance: Appropriate Consciousness: Alert Orientation: Person, Place Motor Activity: Normal gait Speech: Unremarkable Language: Adequate Fund of Knowledge: Inadequate Attention and Concentration: Easily distracted Memory: Impaired (Surrounding events of recent overdose) Mood: Other ("Great") Affect: Irritable Thought Process & Associations: Intact, Goal directed, Linear Thought Content: Appropriate Hallucination Type: None Delusion Type: None Suicidal Ideation: No Suicidal Plan: No Suicidal Intention: No Homicidal Ideation: No Homicidal Plan: No Homicidal Intention: No Insight: Fair Judgment: Impulsive Assessment and Plan - Assessment (1) Bipolar depression Code(s): F31.30 - Bipolar disorder, current episode depressed, mild or moderate severity, unspecified Status: Acute - Plan Plan: Patient this time continues to have intermittent confusion surrounding events prior to her admission as well as with her recent visitations from her friends, noted to be slightly more irritable and anxious today. Patient aware that she will be presented to mental health court tomorrow. Patient denying suicide ideations today. We will continue to increase sertraline to 50 mg p.o. daily, recent lithium level was within therapeutic levels at 0.6. We will continue rest of medications. We will continue to monitor mood and behavior. Patient currently open to referral to an assisted living facility as patient has poor social support at this time. Justification for Continued Inpatient Stay: At risk for further decompensation if at lower level of care
[2017-11-20 16:34] LABS: Hemoglobin A1c 5.6 % (4.3-6.0)
[2017-11-20] MEDS: levETIRAcetam 500 MG Tablet PO SCH ×2 (17:20→20:22)
[2017-11-21 01:23] LABS: Alanine Aminotransferase 30 U/L (10-53); Albumin 2.8 g/dL (3.4-5.0); Alkaline Phosphatase 66 U/L (45-117); Anion Gap 13 meq/L (5-15); Aspartate Aminotransferase 67 U/L (15-37); Blood Urea Nitrogen 20 mg/dL (7-18); Calcium 8.9 mg/dL (8.5-10.1); Carbon Dioxide 16.9 meq/L (21.0-32.0); Chloride 111 meq/L (98-107); Glomerular Filtration Rate 67 mL/min (>89); Glucose,Random 102 mg/dL (74-106); Potassium 5.8 meq/L (3.5-5.1); Sodium 141 meq/L (136-145); Total Protein 6.6 g/dL (6.4-8.2)
[2017-11-21 08:38] LABS: Baso # (Auto) 0.1 th/mm3 (0.0-0.2); Baso % (Auto) 1.2 % (0.0-2.0); Eos # (Auto) 0.3 th/mm3 (0.0-0.4); Eos % (Auto) 2.6 % (0.0-4.0); Hemoglobin 13.3 gm/dL (11.6-15.3); Lymph # (Auto) 1.4 th/mm3 (1.0-4.8); Lymph % (Auto) 13.5 % (9.0-44.0); Mean Corpuscular HGB Conc 32.4 % (32.0-36.0); Mean Corpuscular Hemoglobin 30.3 pg (27.0-34.0); Mean Corpuscular Volume 93.5 fL (80.0-100.0); Mean Platelet Volume 8.3 fL (7.0-11.0); Mono # (Auto) 0.6 th/mm3 (0.0-0.9); Mono % (Auto) 5.7 % (0.0-8.0); Neut # (Auto) 7.7 th/mm3 (1.8-7.7); Platelet Count 449 th/mm3 (150-450); Red Blood Count 4.38 mil/mm3 (4.00-5.30); Red Cell Distribution Width 13.8 % (11.6-17.2)
--- NOTE | 2017-11-21 11:19 | P.PN ---
Subjective Interval history: Patient is seen in day room. She tells me that she is feeling good today with no chest pain. Denies any shortness of breath. Denies any nausea vomiting or diarrhea. She is eating well but tells me she would like to get out of here so she can get more snacks. She would also like a cigarette. Physical Exam Vital signs: Vital Signs 11/20/17 13:38 11/20/17 20:54 11/21/17 06:07 Temperature 98.2 F Pulse Rate 63 72 69 Respiratory Rate 18 Blood Pressure 107/56 L Pulse Oximetry 94 L Intake & Output 11/20/17 11/21/17 11/21/17 18:59 06:59 18:59 Other: # Voids 2 Narrative: GENERAL: Well-nourished, well-developed adult female in no obvious distress. SKIN: Warm and dry. HEAD: Atraumatic. Normocephalic. CARDIOVASCULAR: Regular rate and rhythm. RESPIRATORY: No accessory muscle use. Clear to auscultation. Breath sounds equal bilaterally. GASTROINTESTINAL: Abdomen soft, non-tender, non-distended. Positive bowel sounds. MUSCULOSKELETAL: Extremities without clubbing, cyanosis, or edema. No obvious deformities. NEUROLOGICAL: Awake and alert. No obvious cranial nerve deficits. Motor grossly within normal limits. Normal speech. Results - Labs CBC & Chem 7: 11/21/17 11:54 11/21/17 11:54 Laboratory Results - last 24 hr 11/20/17 11/20/17 11/21/17 08:33 08:33 07:44 WBC 10.0 RBC 4.38 Hgb 13.3 Hct 41.0 MCV 93.5 MCH 30.3 MCHC 32.4 RDW 13.8 Plt Count 449 MPV 8.3 Neut % (Auto) 77.0 H Lymph % (Auto) 13.5 [place] % (Auto) 5.7 Eos % (Auto) 2.6 Baso % (Auto) 1.2 Neut # (Auto) 7.7 Lymph # (Auto) 1.4 [place] # (Auto) 0.6 Eos # (Auto) 0.3 Baso # (Auto) 0.1 WBC Differential . Differential Comment Auto diff final Sodium 141 Potassium 5.8 H Chloride 111 H Carbon Dioxide 16.9 L Anion Gap 13 BUN 20 H Creatinine 0.83 Estimated GFR 67 L Random Glucose 102 Hemoglobin A1c 5.6 Calcium 8.9 Total Bilirubin 0.5 AST 67 H ALT 30 Alkaline Phosphatase 66 Total Protein 6.6 Albumin 2.8 L Assessment and Plan - Plan 72-year-old female with past medical history significant for hypothyroidism, CAD, HLD, SVT, bipolar disorder, depression, and tobacco abuse who presented to [place] [facility] on 11/08 after she was found down at home on the kitchen floor with a bottle of Xanax nearby. Patient was intubated for airway protection and admitted to ICU for mechanical ventilation. Patient was subsequently extubated on 11/15 and cleared for inpatient psychiatry. Has had repeated complaint of chest pain -recent workup was negative. Atypical chest pain; resolved -Recent October 2017 workup for same was negative. Denies chest pain on exam today. -Likely related to depression/anxiety Hypertension; chronic -Continue Lopressor Hypothyroidism; chronic -Continue levothyroxine; TSH WNL Hyperkalemia; resolved -5.8 on 11/20; Prior levels all normal. Lysed? Repeat labs normal. DVT prophylaxis: Patient is ambulatory Discussed with: Patient and nurse Patient appears to be medically stable. Hospital service will sign off at this time. Please reconsult if needed.
[2017-11-21 12:09] LABS: Baso # (Auto) 0.1 th/mm3 (0.0-0.2); Baso % (Auto) 1.2 % (0.0-2.0); Eos # (Auto) 0.2 th/mm3 (0.0-0.4); Eos % (Auto) 2.1 % (0.0-4.0); Hematocrit 41.4 % (35.0-46.0); Hemoglobin 13.4 gm/dL (11.6-15.3); Lymph # (Auto) 1.7 th/mm3 (1.0-4.8); Lymph % (Auto) 14.5 % (9.0-44.0); Mean Corpuscular HGB Conc 32.4 % (32.0-36.0); Mean Corpuscular Hemoglobin 30.5 pg (27.0-34.0); Mean Corpuscular Volume 94.2 fL (80.0-100.0); Mean Platelet Volume 8.2 fL (7.0-11.0); Mono # (Auto) 0.8 th/mm3 (0.0-0.9); Mono % (Auto) 6.5 % (0.0-8.0); Neut # (Auto) 8.9 th/mm3 (1.8-7.7); Neut % (Auto) 75.7 % (16.0-70.0); Platelet Count 467 th/mm3 (150-450); Red Cell Distribution Width 13.8 % (11.6-17.2); White Blood Count 11.7 th/mm3 (4.0-11.0)
[2017-11-21 12:27] LABS: Calcium 9.6 mg/dL (8.5-10.1); Carbon Dioxide 24.3 meq/L (21.0-32.0); Magnesium 2.4 mg/dL (1.5-2.5); Potassium 4.7 meq/L (3.5-5.1)
[2017-11-21] MEDS: levETIRAcetam 500 MG Tablet PO SCH ×2 (12:56→20:23)
[2017-11-21] MEDS: Levothyroxine 50 MCG Tablet PO SCH (12:56)
[2017-11-21] MEDS: Metoprolol Tartrate 25 MG Tablet PO SCH ×2 (12:57→20:23)
[2017-11-21] MEDS: Senna/Docusate Sodium 8.6/50 MG Tablet PO SCH ×2 (12:57→20:23)
[2017-11-21] MEDS: guaiFENesin 600 MG ER Tablet PO SCH ×2 (12:57→20:23)
[2017-11-21] MEDS: Sertraline 50 MG Tablet PO SCH (14:39)
--- NOTE | 2017-11-21 18:08 | P.PNPSY ---
Subjective Remarks: Patient seen for follow-up, chart reviewed. Discussion with nursing staff reported that the patient slept well last night but tearful about suicide attempt when discussed with nursing. Patient states that she had been feeling "alright" feeling "down" continue current circumstances and continues to have intermittent confusion but states that his lessening now. Patient agrees to explore the possibility of going to an assisted living facility such [facility] she states that she wants to focus her energy into helping others. Patient continues report feeling sad at times to person states that she is "doing better". Patient continues to deny any suicide ideations at this time. Review of Systems All other systems reviewed negative except as stated in HPI Mental Status Examination Appearance: Appropriate Consciousness: Alert Orientation: Person, Place Motor Activity: Normal gait Speech: Unremarkable Language: Adequate Fund of Knowledge: Inadequate Attention and Concentration: Easily distracted Memory: Impaired (Surrounding events of recent overdose) Mood: Other ("alright") Affect: Appropriate Thought Process & Associations: Intact, Goal directed, Linear Thought Content: Appropriate Hallucination Type: None Delusion Type: None Suicidal Ideation: No Suicidal Plan: No Suicidal Intention: No Homicidal Ideation: No Homicidal Plan: No Homicidal Intention: No Insight: Fair Judgment: Impulsive Assessment and Plan - Assessment (1) Bipolar depression Code(s): F31.30 - Bipolar disorder, current episode depressed, mild or moderate severity, unspecified Status: Acute - Plan Plan: Patient this time continues to report improvement in mood other continues to have intermittent episodes of sadness due to recent loss, continues to be remorseful suicide attempt and denying suicide ideations at this time. Patient agrees to explore possibilities of an assisted living facility upon discharge. Discharge planning in progress. Justification for Continued Inpatient Stay: At risk for further decompensation if at lower level of care.
[2017-11-21 18:49] VITALS: O2SAT 93
[2017-11-22 05:41] VITALS: BP 142/65; TEMP 97.3
[2017-11-22] MEDS: Levothyroxine 50 MCG Tablet PO SCH (07:07)
[2017-11-22] MEDS: levETIRAcetam 500 MG Tablet PO SCH (09:42)
[2017-11-22] MEDS: Metoprolol Tartrate 25 MG Tablet PO SCH (09:43)
[2017-11-22] MEDS: guaiFENesin 600 MG ER Tablet PO SCH (09:43)
[2017-11-22] MEDS: Senna/Docusate Sodium 8.6/50 MG Tablet PO SCH (09:43)
[2017-11-22] MEDS: Sertraline 50 MG Tablet PO SCH (09:44)
--- NOTE | 2017-11-22 21:24 | P.DSPSY ---
Psychiatry Discharge Summary Inpatient Psychiatric care?: Yes Advance Directives: No Mental Health Advance Directive: No Health Care Proxy: No - Admission Admission Date: November 18, 2017 20:40 - Admission Diagnosis (1) Bipolar depression Code(s): F31.30 - Bipolar disorder, current episode depressed, mild or moderate severity, unspecified Brief History: The patient is a 72-year-old woman, , domiciled alone in [place], supported by Social Security, per family and social support, with psychiatric history of bipolar disorder, for previous psychiatric hospitalizations, the last hospitalization was 13 years ago, she has an outpatient established psychiatric care with Dr. Grijalva in [place], she is in lithium 300 mg twice daily, Zoloft 25 mg, Xanax 0.5 mg twice daily, gabapentin 300 mg 3 times daily, with past medical history of hyperlipidemia, mild coronary artery disease on left heart cath 2011, hypothyroidism, ongoing tobacco abuse who presented to [facility] emergency department with altered mental status after she was found down in her home near nearly empty Xanax bottle. Her neighbor reported that she frequently speaks of suicidal intent. GCS was 4 upon arrival. She was intubated for airway protection by Dr. Redman in the emergency department. She prescription bottle with Xanax 0.5 mg p.o. 3 times daily and a bottle of 90 was filled on 08/23/17. 21 pills are left in the bottle. Prior medication list also include lithium. Urine toxicology screen positive for benzodiazepines only. Hana level 0.8.Patient was intubated for airway protection. EtOH negative. Ammonia level normal. CT brain negative. Patient was consulted to psychiatry now that is extubated for assessment of suicidal attempt. On my psychiatric evaluation the patient is calm, superficially cooperative, communication is limited due to hoarseness. The patient was able to tell me that she has been feeling quite depressed since her son last July. She has being living with her now for several years, she has no family members, no friends, she has no reason to live for. She reports that today she feels a little bit much better mood crowley, she has been thinking that if she did not is because "God wants me here", but she does report feeling hopeless, helpless, worthless, with increased anhedonia, and sense of abandonment. At this moment the patient was able to contract for safety and denied active suicidal ideation. Patient is fully oriented 3. No attention deficit, no fluctuation of consciousness present. No loosening of associations, no paranoia, no agitation, no aggressive behavior, no ideas of reference are present. The patient denies the use of alcohol and illegal drugs. Tobacco Use In Past 30 Days: No How Often Do You Have a Drink Containing Alcohol: Never Hospital Course: patient is a 72-year-old woman, , domiciled alone in [place] , supported by Social Security, per family and social support, with psychiatric history of bipolar disorder, for previous psychiatric hospitalizations, the last hospitalization was 13 years ago, she has an outpatient established psychiatric care with Dr. Grijalva in [place], she is in lithium 300 mg twice daily, Zoloft 25 mg, Xanax 0.5 mg twice daily, gabapentin 300 mg 3 times daily, with past medical history of hyperlipidemia, mild coronary artery disease on left heart cath 2011, hypothyroidism, ongoing tobacco abuse who presented to [facility] emergency department with altered mental status after she was found down in her home near nearly empty Xanax bottle which she was transferred to the inpatient psychiatry after medical stabilization for further evaluation and management. Patient was initially admitted to the medical floor after initial psychiatric admission due to chest pain workup which patient was cleared medically and transferred back to the inpatient psychiatry unit. Patient continued on lithium and titrated to 300mg PO BID with lithium level within therapeutic limits, sertraline 50mg PO daily and continued on medications for chronic medical conditions which she tolerated well with no notable adverse drug reactions. Patient was noted with improvement in mood, noted to have denied having any suicidal ideations since admission. She was observed by staff to not have had any behavioral disturbances, not having made any suicidal or homicidal statements and maintained stable mood through admission and was noted to participate with staff adequately. Patient was noted to participate in self care, engaging with staff and maintaining adequate hygiene. Patient reported feeling more hopeful, future oriented and motivated to continue to help others through her mormonism and continue with outpatient follow up. Treatment team was able to set up outpatient follow up appointments which the patient can continue current medication regimen. Upon discharge patient stated that she was feeling good, reported feeling well with the treatment, as well as motivation to continue recommendations and denied any SI, HI, perceptual disturbances or delusions. Close friend was contacted prior to discharge and expressed plan to move into patients home for several weeks to provide support and denied any safety concern. 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 Patient was counseled regarding warning signs for need to return to the psychiatric emergency room as part of a general safety plan. Patient advised to call 911 or go nearest ED in case of emergency. Patient agreed with plan. - Discharge Discharge Date: 11/22/17 - Discharge Diagnosis (1) Bipolar depression Code(s): F31.30 - Bipolar disorder, current episode depressed, mild or moderate severity, unspecified Status: Acute Discharge Disposition: Home - Discharge Instructions Discharge Diet: Heart Healthy Diet Activities You Can Perform: Regular- No Restrictions - Discharge Time > 30 minutes Mental Status Examination Appearance: Appropriate Consciousness: Alert Orientation: Person, Place Motor Activity: Normal gait Speech: Unremarkable Language: Adequate Fund of Knowledge: Inadequate Attention and Concentration: Adequate Memory: Impaired (Surrounding events of recent overdose) Mood: Appropriate Affect: Appropriate Thought Process & Associations: Intact, Goal directed, Linear Thought Content: Appropriate Hallucination Type: None Delusion Type: None Suicidal Ideation: No Suicidal Plan: No Suicidal Intention: No Homicidal Ideation: No Homicidal Plan: No Homicidal Intention: No Insight: Fair Judgment: Impulsive Discharge/Advance Care Plan - Results Vital Signs: Last Vital Signs Temp 97.3 F L 11/22/17 05:41 Pulse 77 11/22/17 13:26 Resp 16 11/22/17 13:26 BP 142/65 H 11/22/17 05:41 Pulse Ox 93 L 11/22/17 05:41 Lab Results: Laboratory Results Hemoglobin A1c 5.6 % (4.3-6.0) 11/20/17 08:33 Triglycerides 80 mg/dL (42-150) 11/20/17 08:33 Cholesterol 115 mg/dL (120-200) L 11/20/17 08:33 LDL Cholesterol, Calc 59 mg/dL (0-99) 11/20/17 08:33 HDL Cholesterol 39.8 mg/dL (40.0-60.0) L 11/20/17 08:33 Hana 0.6 meq/L (0.5-1.5) 11/20/17 08:33 Summary of Procedures: none Pending Results: None - Medications Number of antipsychotic medications at discharge: 0 - Discharge Care Plan Goals to Promote Your Health: * To prevent worsening of your condition and complications * To maintain your health at the optimal level Directions to Meet Your Goals: Take your medications as prescribed Follow your dietary instruction Follow activity as directed Keep your appointments as scheduled Take your immunizations and boosters as scheduled If your symptoms worsen call your PCP, if no PCP go to Urgent Care Center or Emergency Room For 12/11 questions related to your inpatient stay or results of tests pending at discharge, please contact Dr. Brad Oseguera MD at Smoking is Dangerous to Your Health. Avoid second hand smoking
[2017-11-26 18:08] VITALS: PULSE 77; RESP 16
== END 2017-11-22 15:30 | disposition home or self-care (01) ==
LOC: H4EA 20:40
PROVIDERS: ADMIT Student in an Organized Health Care Education/Training Program; ATTEND Student in an Organized Health Care Education/Training Program